=== PATIENT | male | born 1965 | race Caucasian/White ===

== ENCOUNTER 2021-11-14 22:03 | Emergency (ER) | payer OTHER, SELFPAY ==
--- NOTE | ~2021-11-14 | XR_ITS ---
EXAMINATION: XR TIBIA AND FIBULA, RIGHT CLINICAL INFORMATION: Assess for tibial fracture COMPARISON: None TECHNIQUE: AP and lateral views of the right tibia and fibula were obtained. FINDINGS: Diffuse soft tissue swelling about the calf. Underlying bony structures appear to be intact. I do not appreciate any acute fracture or dislocation. Mild degenerative changes in the knee and ankle. No bony destructive lesion or periosteal reaction. No soft tissue gas or radiopaque foreign body. XR/XR tibia fibula RT 2V IMPRESSION: Diffuse soft tissue swelling but no acute bony abnormality.
[2021-11-14 22:13] VITALS: RESP 18; BMI 40.6
[2021-11-14 22:24] LABS: MANUAL DIFF FLAG NO
[2021-11-14 22:26] LABS: Basophils Absolute Auto 0.1 X10*3/uL (0.0-0.2); Basophils Percent Auto 0.4 % (0-2); Eosinophils Percent Auto 0.2 % (0-4); Hematocrit 43.5 % (42.0-52.0); Hemoglobin 13.9 g/dl (14.0-18.0); Imm Gran Abs Auto 0.09 X10*3/uL (0.00-0.03); Imm Gran Pct Auto 0.6 % (0.0-0.4); Lymphocytes Absolute Auto 1.7 X10*3/uL (1.2-4.9); Lymphocytes Percent Auto 12.1 % (20-40); Mean Corpuscular Hemoglobin 27.1 pg (27.0-33.0); Mean Corpuscular Volume 84.8 fL (80.0-98.0); Mean Platelet Volume 9.5 fL (9.4-12.4); Monocytes Absolute Auto 0.9 X10*3/uL (0.1-1.2); Monocytes Percent Auto 6.4 % (2-11); Neutrophils Absolute Auto 11.2 x10*3/uL (2.0-8.3); Neutrophils Percent Auto 80.3 % (45-73); Platelet Count 290 X10*3/uL (160-400); Red Blood Count 5.13 X10*6/uL (4.60-5.80); Red Cell Distribution Width 15.5 % (11.0-16.0)
[2021-11-14 22:40] LABS: Alanine Aminotransferase 17 U/L (0-40); Alkaline Phosphatase 52 U/L (39-117); Anion Gap 19 (12-20); Aspartate Amino Transferase 14 U/L (5-37); Bilirubin Total 0.7 mg/dL (0.0-1.0); Blood Urea Nitrogen 13 mg/dL (9-16); Calcium 8.7 mg/dL (8.4-10.2); Carbon Dioxide 23 mmol/L (22-29); Chloride 102 mmol/L (96-108); Creatinine Clr Calc Pharmacy 81.4; Estimated Glomerular Filt Rate 51; Glucose Random 181 mg/dL (60-115); Potassium 3.9 mmol/L (3.3-5.1); Sodium 140 mmol/L (135-145); Total Protein 6.9 g/dL (6.5-8.0)
[2021-11-14] MEDS: Lidocaine HCl 2%/Epi 1:100,000 20 ML VIAL INFILTRATI (23:22)
--- NOTE | 2021-11-15 00:29 | ED.GENADULT ---
HPI - General Adult General Chief complaint: General Medical Stated complaint: bleeding leg Time Seen by Provider: 11/14/21 22:17 Source: patient Mode of arrival: ambulatory Limitations: no limitations History of Present Illness HPI narrative: Patient comes to the emergency room by private patient was trying to change a light bulb, patient fell of a 3 step ladder, slipped down, then the ladder fell on him. Patient complaining of a large laceration to the right lower extremity. Patient denies hitting his head, did not lose consciousness, not on blood thinners. Patient complaining of localized pain at the laceration site Related Data Allergies Allergy/AdvReac Type Severity Reaction Status Date / Time No Known Allergies Allergy Unverified 11/09/19 15:20 Review of Systems Review of Systems: Constitutional : No Weight loss, No Fever, No Chills, No Night Sweats, No Fatigue, No Malaise ENT/Mouth : No Hearing loss, No Ear Pain, No Nasal Congestion, No Sinus Pain, No Hoarseness, No sore throat, No Rhinorrhea, No Swallowing Difficulty Eyes: No Eye Pain, No Swelling, No Redness, No Foreign Body, No Discharge, No Vision Changes Cardiovascular : No Chest Pain, No SOB, No Dyspnea on Exertion, No Orthopnea, No Edema, No Palpitations Respiratory : No Cough, No Sputum, No Wheezing, No Smoke Exposure, No Dyspnea Gastrointestinal : No Nausea, No Vomiting, No Diarrhea, No Constipation, No abdominal Pain, No Hematochezia, No Melena Genitourinary : no irregular bleeding, No Dysuria, No Urinary Frequency, No Hematuria, No Urinary Incontinence, No Urgency, No Flank Pain, No Urinary Flow Changes, No Hesitancy Musculoskeletal : No joint pain, No Myalgias, No Joint Swelling Skin : Complaining of a large laceration to the right lower extremity Neuro : No Weakness, No Numbness, No Paresthesias, No Loss of Consciousness, No Dizziness, No Headache Psych : No Anxiety/Panic, No Depression, No SI/HI/AH/VH, No Social Issues, Heme/Lymph: No Bruising, No Bleeding,No Lymphadenopathy Endocrine : No Polyuria, No Polydipsia, No Temperature Intolerance PMFSH Social History Social History Advance Directives: No Physical Exam ED Vital Signs: Vital Signs - 24 hr 11/14/21 22:13 Respiratory Rate 18 BMI result Body Mass Index 40.6 Const Other: Appearance: Alert. Oriented X3. No acute distress. Eyes: Pupils equal, round and reactive to light. ENT: Pharynx normal. Neck: Normal inspection. Neck supple. No lymph nodes noted. No crepitus CVS: Normal heart rate and rhythm. Pulses normal. Normal S1 and S2 Respiratory: No respiratory distress. Breath sounds normal. No Wheezing. No rales Abdomen: Soft and nontender. No rigidity. No distention. Skin: Skin warm and dry. See extremity below bilateral chronic venous stasis Extremities: Bilateral lower chronic venous stasis, please see picture, laceration is approximately 23 cm, irregular, deep, the fascia is intact Neuro: Oriented X 3. No motor deficit. No sensory deficit. Moving all extremities. No slurred speech. CN 2 through 12 grossly intact Psych: calm, cooperative, normal affect Post repair: Course Course Course Narrative: When patient came in, patient states that he was dizzy from seeing some much blood. Patient's blood pressure was initially in the high 70s. Likely vasovagal. Patient giving fluids, now blood pressure 110 systolic, asymptomatic. 90 minutes were spent in direct patient care, suturing the laceration. Patient was given a tetanus booster. X-ray of tibia/fibula showed no fracture Procedures Laceration Laceration 1: Site: lower extremity Side (If applicable): right Size (cm): 23 Description: stellate, flap and irregular Local Anesthetic: lidocaine 2% and with epi Amount of anesthesia used (mL): 37 Pre-repair: wound explored, irrigated extensively and deep structures intact Skin layer closed with: nylon Size (cm): 3-0 Number of sutures: 28 Technique: other (Combination of simple interrupted sutures and figure 8) Subcutaneous layer closed with: vicryl Size: 4-0 Technique: other (Combination of simple interrupted and running sutures) Medical Decision Making Lab Data Result diagrams: 11/14/21 22:17 11/14/21 22:17 Labs: Lab Results 11/14/21 11/14/21 11/14/21 Range/Units 22:17 22:17 22:17 WBC 14.0 H (4.8-10.8) X10*3/uL RBC 5.13 (4.60-5.80) X10*6/uL Hgb 13.9 L (14.0-18.0) g/dl Hct 43.5 (42.0-52.0) % MCV 84.8 (80.0-98.0) fL MCH 27.1 (27.0-33.0) pg MCHC 32.0 (31.0-36.0) g/dl RDW 15.5 (11.0-16.0) % Plt Count 290 (160-400) X10*3/uL MPV 9.5 (9.4-12.4) fL Immature Gran % (Auto) 0.6 H (0.0-0.4) % Neut % (Auto) 80.3 H (45-73) % Lymph % (Auto) 12.1 L (20-40) % Nuckolls % (Auto) 6.4 (2-11) % Eos % (Auto) 0.2 (0-4) % Baso % (Auto) 0.4 (0-2) % Lymph # (Auto) 1.7 (1.2-4.9) X10*3/uL Nuckolls # (Auto) 0.9 (0.1-1.2) X10*3/uL Eos # (Auto) 0.0 (0.0-0.4) X10*3/uL Baso # (Auto) 0.1 (0.0-0.2) X10*3/uL Abs Immat Gran (auto) 0.09 H (0.00-0.03) X10*3/uL Absolute Neuts (auto) 11.2 H (2.0-8.3) x10*3/uL Absolute Nucleated RBC 0.000 (0.0-0.012) X10*3/uL Nucleated RBC % (auto) 0.0 (0.0-0.2) /100WBC Sodium 140 (135-145) mmol/L Potassium 3.9 (3.3-5.1) mmol/L Chloride 102 (96-108) mmol/L Carbon Dioxide 23 (22-29) mmol/L Anion Gap 19 (12-20) BUN 13 (9-16) mg/dL Creatinine 1.43 H (0.5-1.4) mg/dL Estim Creat Clear Calc 81.4 Estimated GFR 51 Random Glucose 181 H (60-115) mg/dL Calcium 8.7 (8.4-10.2) mg/dL Total Bilirubin 0.7 (0.0-1.0) mg/dL AST 14 (5-37) U/L ALT 17 (0-40) U/L Alkaline Phosphatase 52 (39-117) U/L Total Protein 6.9 (6.5-8.0) g/dL Albumin 4.0 (3.5-5.0) g/dL Blood Type O Positive Antibody Screen NEGATIVE Critical Care Time Critical Care Time Critical Care Time: Yes Total Critical Care Time: 90 Attestation: Please follow-up with your primary care physician tomorrow. If you have any worsening or new symptoms, please return to the emergency room or call 911 Discharge Plan Discharge Clinical Impression: Laceration of lower leg Patient Disposition: Home, Self-Care Instructions: Laceration (ED) Additional Instructions: Your sutures need to be removed in 7-10 days. If you see any signs of infection such as redness, pus drainage, fever or chills, please return to the emergency room. Please follow-up with your primary care physician tomorrow. If you have any worsening or new symptoms, please return to the emergency room or call 911
[2021-11-15] MEDS: Diphth,Pertus(ACell),Tet Adult 0.5 ML SYRINGE IM (00:54)
== END 2021-11-15 01:18 | disposition home or self-care (01) ==
PROVIDERS: Emergency Provider Emergency Medicine
DX: S81.811A Laceration without foreign body, right lower leg, initial encounter (principal); W20.8XXA Other cause of strike by thrown, projected or falling object, initial encounter; Y93.E9 Activity, other interior property and clothing maintenance; Y92.019 Unspecified place in single-family (private) house as the place of occurrence of the external cause; Y99.9 Unspecified external cause status
CPT/HCPCS: 12036; 36415; 73590; 80053; 85025; 86850; 86900; 86901; 90471; 90715; 99283; 99284

== ENCOUNTER 2021-11-27 13:33 | Observation (INO) | payer OTHER, SELFPAY ==
[2021-11-27 15:28] VITALS: BP 153/108; PULSE 90; RESP 20; TEMP 36; O2SAT 98; BMI 50.2
[2021-11-27 23:42] VITALS: BP 177/93; PULSE 91; TEMP 36.7; O2SAT 97
[2021-11-28] VITALS (8 sets, daily range): BP systolic 143–188; BP diastolic 74–96; PULSE 58–97; RESP 16–19; TEMP 35.9–36.8; O2SAT 96–98
--- NOTE | 2021-11-28 00:04 | ED.WOUNDLAC ---
HPI - Wound/Laceration General Chief Complaint: Wound/Laceration Stated Complaint: Suture Removal Time Seen by Provider: 11/27/21 23:41 Source: patient Mode of arrival: ambulatory Limitations: no limitations History of Present Illness HPI narrative: This is a 56-year-old male presenting to the emergency department for suture removal status post complex laceration that occurred on 11/15/2021. Patient tells me he has been having some chills here in there he notes the area is not healing well and it is warm. Patient tells me that the right lower extremities really hurting him. Reports increased redness. He tells me his nurse friend try to help with suture removal however half of the sutures are imbedded underneath the skin. Patient reports that he did not take oral antibiotics nor was he prescribed any when he 1st came in Related Data Previous Rx's Medication Instructions Recorded tramadol 50 mg tablet 50 mg PO BID PRN pain #5 tabs 11/15/21 Allergies Allergy/AdvReac Type Severity Reaction Status Date / Time No Known Allergies Allergy Verified 11/15/21 01:11 Review of Systems Review of Systems: Constitutional : No Fever, No Chills, Cardiovascular : No Chest Pain, No SOB Respiratory : No Dyspnea Gastrointestinal : No abdominal pain Musculoskeletal : No Joint Swelling Skin : No rash, positive skin laceration/wound Neuro : No Weakness, No Numbness Psych : No SI/HI Yes all other systems are reviewed and are negative [facility] Past Medical History Attestation statement: The following information was validated with the patient. Source: old records reviewed and nursing notes reviewed Social History Social History Advance Directives: No Physical Exam Vital Signs: Vital Signs: Last Vital Signs Temp 98.1 F 11/27/21 23:42 Pulse 91 11/27/21 23:42 Resp 20 11/27/21 15:28 BP 177/93 H 11/27/21 23:42 Pulse Ox 97 11/27/21 23:42 O2 Del Method 11/27/21 23:42 BMI result Body Mass Index 50.2 Vital signs stable however patient noted to have slightly elevated blood pressure, asymptomatic at this time. No headache, vision changes, dizziness or weakness. Appearance: Alert.? Oriented X3.? No acute distress.? Head: Normocephalic, atraumatic, no step-offs or deformities Eyes: Pupils equal, round and reactive to light.? ENT: Pharynx normal.? Neck: Normal inspection.? Neck supple.? CVS: Normal heart rate and rhythm.? Pulses normal.? Respiratory: No respiratory distress.? Breath sounds normal.? Abdomen: Soft and nontender.? Skin: Skin warm and dry.? Normal skin color.? Normal skin turgor.? Large wound to the right lower extremity nonhealing. With mild errythema and some warmth. + DP,AT,PT eqal and bl Extremities: No lower extremity edema.? No calf ttp. 5/5 strength to bilateral upper and lower extremities Neuro: Oriented X 3.? No motor deficit.? No sensory deficit. CN 2-12 intact Course Reevaluation(s) Reevaluation #1: I tried to remove sutures successfully removed about 20 sutures, a large amount of suture material imbedded within patient's skin. Patient had difficulty tolerating procedure secondary to pain. This patient will likely benefit from wound exploration likely by surgery. Basic labs, lactic and blood cultures pending at this time patient will receive IV antibiotics. Plan is for hospital admission. Time: 00:09 Reevaluation #2: Patient's CBC within normal limits, chemistry with no acute electrolyte abnormalities requiring intervention. Patient's lactic acid 2.9, fluids are currently being administered and antibiotics ordered. Unlikely sepsis. Inflammatory markers at added at this time. At this time patient will be admitted to the hospitalist team for further intervention and treatment. Time: 01:27 MDM - Wound/Laceration MDM Narrative Medical decision making narrative: 0000 56-year-old male presents for suture removal and a nonhealing right lower extremity wound, patient has suffered a complex laceration on 11/15/2021, reports the wound is not healing reports subjective chills, malaise. Noted to be hypertensive however he tells me this is around his baseline, patient tells me he refused to take blood pressure medications. Nonhealing wound to the right lower extremity, distal pulses 2+ equal bilateral. Neurovascularly intact. There is overlying warmth and erythema surrounding the wound. Some sutures are buried within soft tissue. Likely poor healing wound secondary to peripheral vascular disease or diabetes although patient does not have a diagnosis of diabetes. Unlikely venous or arterial occlusion. Plan at this time is to remove sutures as best as I can, educated that there will likely be retained foreign bodies/sutures due to the healing process. Patient verbalizes understanding. Will obtain basic lab work, blood cultures, lactic acid and give antibiotics for cellulitis Medical Records Attestation: I reviewed the patient's medical records. Lab Data Attestation: I reviewed the patient's lab results. Result diagrams: 11/28/21 00:30 11/28/21 00:30 Labs: Lab Results 11/28/21 11/28/21 11/28/21 Range/Units 00:30 00:30 00:30 WBC 7.6 (4.8-10.8) X10*3/uL RBC 4.86 (4.60-5.80) X10*6/uL Hgb 12.8 L (14.0-18.0) g/dl Hct 40.8 L (42.0-52.0) % MCV 84.0 (80.0-98.0) fL MCH 26.3 L (27.0-33.0) pg MCHC 31.4 (31.0-36.0) g/dl RDW 15.5 (11.0-16.0) % Plt Count 294 (160-400) X10*3/uL MPV 8.5 L (9.4-12.4) fL Immature Gran % (Auto) 0.4 (0.0-0.4) % Neut % (Auto) 69.9 (45-73) % Lymph % (Auto) 22.2 (20-40) % Hughes % (Auto) 6.7 (2-11) % Eos % (Auto) 0.4 (0-4) % Baso % (Auto) 0.4 (0-2) % Lymph # (Auto) 1.7 (1.2-4.9) X10*3/uL Hughes # (Auto) 0.5 (0.1-1.2) X10*3/uL Eos # (Auto) 0.0 (0.0-0.4) X10*3/uL Baso # (Auto) 0.0 (0.0-0.2) X10*3/uL Abs Immat Gran (auto) 0.03 (0.00-0.03) X10*3/uL Absolute Neuts (auto) 5.3 (2.0-8.3) x10*3/uL Absolute Nucleated RBC 0.000 (0.0-0.012) X10*3/uL Nucleated RBC % (auto) 0.0 (0.0-0.2) /100WBC Sodium 140 (135-145) mmol/L Potassium 4.3 (3.3-5.1) mmol/L Chloride 101 (96-108) mmol/L Carbon Dioxide 27 (22-29) mmol/L Anion Gap 16 (12-20) BUN 10 (9-16) mg/dL Creatinine 1.03 (0.5-1.4) mg/dL Estim Creat Clear Calc 120.0 Estimated GFR > 60 Random Glucose 97 D (60-115) mg/dL Lactic Acid 2.9 H* (0.5-2.0) mmol/L Calcium 9.1 (8.4-10.2) mg/dL Total Bilirubin 0.5 (0.0-1.0) mg/dL AST 15 (5-37) U/L ALT 15 (0-40) U/L Alkaline Phosphatase 57 (39-117) U/L Total Protein 7.4 (6.5-8.0) g/dL Albumin 4.3 (3.5-5.0) g/dL Critical Care Time Critical Care Time Critical Care Time: No Discharge Plan Discharge Clinical Impression: Encounter for removal of sutures, Cellulitis, Retained foreign body, Retained suture, HANY (acute kidney injury) Patient Disposition: Admitted As Inpatient
[2021-11-28 00:39] LABS: Basophils Percent Auto 0.4 % (0-2); Eosinophils Percent Auto 0.4 % (0-4); Hematocrit 40.8 % (42.0-52.0); Hemoglobin 12.8 g/dl (14.0-18.0); Imm Gran Abs Auto 0.03 X10*3/uL (0.00-0.03); Imm Gran Pct Auto 0.4 % (0.0-0.4); Lymphocytes Absolute Auto 1.7 X10*3/uL (1.2-4.9); Lymphocytes Percent Auto 22.2 % (20-40); MANUAL DIFF FLAG NO; Mean Corpuscular HGB Conc 31.4 g/dl (31.0-36.0); Mean Corpuscular Hemoglobin 26.3 pg (27.0-33.0); Mean Platelet Volume 8.5 fL (9.4-12.4); Monocytes Absolute Auto 0.5 X10*3/uL (0.1-1.2); Monocytes Percent Auto 6.7 % (2-11); Neutrophils Absolute Auto 5.3 x10*3/uL (2.0-8.3); Neutrophils Percent Auto 69.9 % (45-73); Platelet Count 294 X10*3/uL (160-400); Red Blood Count 4.86 X10*6/uL (4.60-5.80); Red Cell Distribution Width 15.5 % (11.0-16.0); White Blood Count 7.6 X10*3/uL (4.8-10.8)
[2021-11-28 00:52] LABS: Lactic Acid 2.9 mmol/L (0.5-2.0)
[2021-11-28 00:54] LABS: Alanine Aminotransferase 15 U/L (0-40); Albumin Level 4.3 g/dL (3.5-5.0); Alkaline Phosphatase 57 U/L (39-117); Anion Gap 16 (12-20); Aspartate Amino Transferase 15 U/L (5-37); Bilirubin Total 0.5 mg/dL (0.0-1.0); Blood Urea Nitrogen 10 mg/dL (9-16); Calcium 9.1 mg/dL (8.4-10.2); Carbon Dioxide 27 mmol/L (22-29); Chloride 101 mmol/L (96-108); Estimated Glomerular Filt Rate > 60; Glucose Random 97 mg/dL (60-115); Potassium 4.3 mmol/L (3.3-5.1); Sodium 140 mmol/L (135-145); Total Protein 7.4 g/dL (6.5-8.0)
[2021-11-28] MEDS: cefTRIAXone sodium 1 GM in 0.9 % Sodium Chloride 50 ML IV (01:26)
[2021-11-28] MEDS: 0.9 % Sodium Chloride 1,000 ML 999 ML IV (01:26)
[2021-11-28 02:20] LABS: Erythrocyte Sedimentation Rate 22 MM/HR (0-15)
[2021-11-28 02:39] LABS: Reflex Lactate? Lactic Acid Added
[2021-11-28 05:21] LABS: Estimated Average Glucose 114 mg/dL; Hemoglobin A1c % 5.6 %
--- OUTSIDE RECORDS SUMMARY | 2021-11-28 05:39 | XMS_ITS | Continuity of Care Document ---
:1965 Author Organization [facility] Address [address] [place] [address]- Care Team Providers Name Role Phone Not on Staff, PCP Primary Care Physician Unavailable Encounter [facility] Date(s): 06/12/19 - 07/12/19 [facility] [address] [place] [address]- [facility] Attending Physician: Arsh Suarez Admitting Physician: Arsh Suarez Referring Physician: Admtr, Ar8 Allergies, Adverse Reactions, Alerts No Known Medication Allergies
--- OUTSIDE RECORDS SUMMARY | 2021-11-28 05:39 | XMS_ITS | Continuity of Care Document ---
:1965 Author Organization [facility] Address [address] [place] [address]- Care Team Providers Name Role Phone Not on Staff, PCP Primary Care Physician Unavailable [place] [facility] [place] - 06/19/19 [facility] [address] [place] [address]- [facility] Attending Physician: Afia Vigil MD Referring Physician: Shaylee AHN, Remigio Wheeler Allergies, Adverse Reactions, Alerts No Known Medication Allergies Vital Signs Most recent to oldest [Reference Range]: 1 Height 177 cm (06/12/19 3:03 PM) Weight 158.3 kg (06/12/19 3:03 PM) Oxygen Saturation [94-100 %] 97 % (06/12/19 3:03 PM) Pulse Rate [55-90 bpm] 131 bpm *H* (06/12/19 3:03 PM) Body Mass Index [18.5-24.99] 50.53 *>HHI* (06/12/19 3:03 PM) Blood Pressure [90-138/55-84 mm Hg] 174/102 mm Hg *H* (06/12/19 3:03 PM) Respiratory Rate [16-30 br/min] 18 br/min (06/12/19 3:03 PM) Temperature [96.8-100.4 DegF] 97.2 DegF (06/12/19 3:03 PM) Mode of Delivery (Oxygen) Room air (06/12/19 3:03 PM) Blood pressure sites Arm, right (06/12/19 3:03 PM) Temperature Route Oral (06/12/19 3:03 PM) Dry Weight 158.3 kg (06/12/19 3:03 PM) Weight Obtained Via Standing scale (06/12/19 3:03 PM) Dry Weight Obtained Via Standing scale (06/12/19 3:03 PM)
--- NOTE | 2021-11-28 05:52 | PM.IMHP ---
History of Present Illness Date of Service: 11/28/21 Chief Complaint: suture removal 56-year-old male with no significant past medical history who presents to the hospital with complaints of right leg laceration wanting sutures removed. Patient was seen in the ED 14 days ago after falling from a ladder and sustaining a laceration to the lateral aspect of his right leg. He received over 50 sutures in the ED. He reports that he was taking care of it at home, with Tegaderm, and keeping it dry, but the sutures kept getting stuck in his pads, and really being bothersome and therefore he came to the ED to have them removed. He reports no pain, he does report drainage of bloody liquid, denies any fever or chills, with no swelling on the wound, he has chronic changes of skin in his lower extremitities that has not changed. Patient denies any chest pain, no shortness of breath, no abdominal pain nausea or vomiting, no diarrhea constipation, no urinary symptoms and no lower extremity edema. On arrival to the ED patient hemodynamically stable with slightly elevated blood pressure I labs are significant for WBC count of 7.6, hemoglobin of 12.8, hematocrit of 40.8, lactic acid of 2.9, improved to 1 after fluids, CRP of 1.2, ESR of 22, Patient's start IV antibiotics OB admitted further management Review of Systems Review of Systems: Yes all other systems are reviewed and are negative [facility] Medical History (Updated 11/28/21 @ 05:57 by Celina Haywood MD) No pertinent past medical history Family History (Updated 11/28/21 @ 05:57 by Celina Haywood MD) Other No family history of coronary artery disease Surgical History (Updated 11/28/21 @ 05:57 by Celina Haywood MD) No pertinent past surgical history Social History (Updated 11/28/21 @ 05:57 by Celina Haywood MD) Alcohol intake: current Patient Tobacco Use Status: Former Tobacco user Cigarette Packs Per Day: 3 Use of substances other than those prescribed or required for medical reasons: Yes Substance Use Type: Marijuana Advance Directives: No Meds Allergies Allergy/AdvReac Type Severity Reaction Status Date / Time No Known Allergies Allergy Verified 11/15/21 01:11 Active Medications: Current Medications Acetaminophen (Acetaminophen 325 Mg Tablet) 650 mg PO Q6H PRN PRN Reason: Pain, Mild (Pain Scale 1-3) Docusate Sodium (Docusate Sodium 100 Mg Capsule) 100 mg PO DAILY PRN PRN Reason: Constipation Enoxaparin Sodium (Enoxaparin Sodium 40 Mg/0.4 Ml Syringe) 40 mg SUBCUT Q24H NASH Vancomycin HCl 1,500 mg/ (Sodium Chloride) 500 mls @ 333.333 mls/hr IV Q12H NASH Ondansetron HCl (Ondansetron Hcl 4 Mg/2 Ml Vial) 4 mg IVPUSH Q8H PRN PRN Reason: Nausea and Vomiting Pharmacy Consult (Consult Rx Perform Med Rec) 1 each MISCELLANE ONCE PRN PRN Reason: Consult order Pharmacy Consult (Consult Rx Vancomycin Dosing) 1 each MISCELLANE DAILY PRN PRN Reason: Consult order Sodium Chloride (0.9 % Sodium Chloride Flush 3 Ml Syringe) 3 ml IVFLUSH QSHIFT NASH Physical Exam Vital Signs and Narrative: Vital Signs: Last Vital Signs Temp 98.1 F 11/27/21 23:42 Pulse 96 11/28/21 04:00 Resp 20 11/27/21 15:28 BP 188/89 H 11/28/21 04:00 Pulse Ox 97 11/28/21 04:00 O2 Del Method 11/28/21 04:00 BMI result Body Mass Index 50.2 Const: General: cooperative and no acute distress Orientation/consciousness: patient oriented x3 Eyes: General: appearance normal, both eyes and all related structures Resp: Effort & Inspection: normal respiratory effort Auscultation: clear to auscultation bilaterally Cardio: Rate: regular rate Rhythm: regular rhythm GI: Palpation (GI): Soft to palpation Auscultation: normal bowel sounds Skin: Other: Has a right lateral lower extremity ulcer, with embedded sutures, no erythema, no tenderness, no warmth, but has purulent discharge Neuro: General: patient oriented x3 Cognition (Neuro): normal cognition Extrem: General: Yes normal to inspection and Yes no pedal edema Results Labs CBC and Chem 7: 11/28/21 00:30 11/28/21 00:30 Labs: Laboratory Results - last 24 hr 11/28/21 11/28/21 11/28/21 00:30 00:30 00:30 MCV 84.0 MCH 26.3 L MCHC 31.4 RDW 15.5 Plt Count 294 MPV 8.5 L Immature Gran % (Auto) 0.4 Neut % (Auto) 69.9 Lymph % (Auto) 22.2 Worth % (Auto) 6.7 Eos % (Auto) 0.4 Baso % (Auto) 0.4 Lymph # (Auto) 1.7 Worth # (Auto) 0.5 Eos # (Auto) 0.0 Baso # (Auto) 0.0 Abs Immat Gran (auto) 0.03 Absolute Neuts (auto) 5.3 Absolute Nucleated RBC 0.000 Nucleated RBC % (auto) 0.0 ESR Anion Gap 16 Estim Creat Clear Calc 120.0 Estimated GFR > 60 Random Glucose 97 D Estimat Average Glucose 114 Hemoglobin A1c % 5.6 Lactic Acid Lactic Acid F/U @ 2Hr Calcium 9.1 Total Bilirubin 0.5 AST 15 ALT 15 Alkaline Phosphatase 57 C-Reactive Protein 1.20 H Total Protein 7.4 Albumin 4.3 11/28/21 11/28/21 11/28/21 00:30 00:30 05:02 MCV MCH MCHC RDW Plt Count MPV Immature Gran % (Auto) Neut % (Auto) Lymph % (Auto) Worth % (Auto) Eos % (Auto) Baso % (Auto) Lymph # (Auto) Worth # (Auto) Eos # (Auto) Baso # (Auto) Abs Immat Gran (auto) Absolute Neuts (auto) Absolute Nucleated RBC Nucleated RBC % (auto) ESR 22 H Anion Gap Estim Creat Clear Calc Estimated GFR Random Glucose Estimat Average Glucose Hemoglobin A1c % Lactic Acid 2.9 H* Lactic Acid F/U @ 2Hr 1.0 Calcium Total Bilirubin AST ALT Alkaline Phosphatase C-Reactive Protein Total Protein Albumin Assessment and Plan (1) Encounter for removal of sutures: Status: Acute (2) Retained foreign body: Status: Acute (3) Retained suture: Status: Acute Plan 56-year-old male with no significant past medical history presents to hospital with nonhealing ulcer in his right leg and wanting suture removed # retained foreign body/retained sutures - will consult General surgery as ED PA was unable to remove the sutures - given the purulent discharge, nonhealing wound will start patient on IV antibiotics - he is likely okay to be discharge in a.m. on p.o. antibiotics once seen by surgery - wound also consulted - will likely need wound care follow-up outpatient # lactic acidosis - unclear etiology - has no hypotension, no hypoxia - improved after IV fluids - continue IV fluids DVT prophylaxis: Lovenox Quality Stroke Does the patient have a stroke diagnosis?: No VTE Prior VTE?: No VTE Risk Level:: Medical - moderate - high VTE Device Contraindication: Treatment Not Indicated VTE Drug Contraindication: N/A - Med Ordered
[2021-11-28] MEDS: Enoxaparin Sodium 40 MG/0.4 ML SYRINGE SUBCUT (07:19)
[2021-11-28] MEDS: vancomycin HCL 1,500 MG in 0.9 % Sodium Chloride 500 ML 333.33 MG IV (07:19)
--- NOTE | 2021-11-28 07:50 | PHA.PROG ---
Admission Date/Time: November 28, 2021 05:06 Indication: skin Weight in k.757 kg Adjusted body weight in Kg: [place] body weight in Kg: Obesity Dosing Indication % IBW: obese model Serum Creatinine - Last 168 Hours 11/28/21 00:30 Creatinine 1.03 Estimated CrCl and GFR - Last 168 Hours 11/28/21 00:30 Estim Creat Clear Calc 120.0 Estimated GFR > 60 Vancomycin Loading Dose: 1500mg x1 and added extra 500mg for 2g load dose Current Vancomycin Dosing Regimen: 1000mg Q12H Vancomycin Monitoring using AUC goal of 400 - 600 range with trough as surrogate marker 445mg/L Date and Time for next Vancomycin Level to be drawn: 11/29/21 @1700 Pharmacist Comments on Vancomycin Plan: Pt extremely obese; will continue to monitor renal function Vancomycin dosing will take advantage of [employer] as a clinical decision support tool that uses Bayesian modeling to calculate individual patient's pharmacokinetic parameters and forecast the patient's drug concentration time course with the target goal AUC 24 range of 400 - 600 mg/L/hr.
[2021-11-28 07:58] LABS: MANUAL DIFF FLAG NO
[2021-11-28 08:00] LABS: Basophils Absolute Auto 0.1 X10*3/uL (0.0-0.2); Basophils Percent Auto 0.5 % (0-2); Eosinophils Absolute Auto 0.1 X10*3/uL (0.0-0.4); Eosinophils Percent Auto 0.7 % (0-4); Hematocrit 43.2 % (42.0-52.0); Hemoglobin 13.3 g/dl (14.0-18.0); Imm Gran Abs Auto 0.04 X10*3/uL (0.00-0.03); Imm Gran Pct Auto 0.4 % (0.0-0.4); Lymphocytes Absolute Auto 2.3 X10*3/uL (1.2-4.9); Lymphocytes Percent Auto 23.7 % (20-40); Mean Corpuscular HGB Conc 30.8 g/dl (31.0-36.0); Mean Corpuscular Hemoglobin 26.1 pg (27.0-33.0); Mean Corpuscular Volume 84.9 fL (80.0-98.0); Mean Platelet Volume 8.9 fL (9.4-12.4); Monocytes Absolute Auto 0.7 X10*3/uL (0.1-1.2); Monocytes Percent Auto 6.9 % (2-11); Neutrophils Absolute Auto 6.6 x10*3/uL (2.0-8.3); Neutrophils Percent Auto 67.8 % (45-73); Platelet Count 319 X10*3/uL (160-400); Red Blood Count 5.09 X10*6/uL (4.60-5.80); Red Cell Distribution Width 15.6 % (11.0-16.0); White Blood Count 9.8 X10*3/uL (4.8-10.8)
[2021-11-28 08:07] LABS: PTT Heparin Drip 31.6 SEC (53-77.9)
[2021-11-28] MEDS: Lactated Ringers 1,000 ML 100 ML IVCONT (08:20)
[2021-11-28 08:21] LABS: Anion Gap 16 (12-20); Blood Urea Nitrogen 10 mg/dL (9-16); Calcium 8.8 mg/dL (8.4-10.2); Carbon Dioxide 24 mmol/L (22-29); Chloride 104 mmol/L (96-108); Creatinine Clr Calc Pharmacy 128.8; Estimated Glomerular Filt Rate > 60; Glucose Random 85 mg/dL (60-115); Potassium 4.3 mmol/L (3.3-5.1); Sodium 140 mmol/L (135-145)
--- NOTE | 2021-11-28 08:49 | PM.CNGS ---
History of Present Illness Consult details Consult date: 11/28/21 <JASMEET Villa Last Filed: 11/28/21 12:54> Requesting physician: Celina Haywood <JASMEET Villa Last Filed: 11/28/21 12:54> Narrative: 56 year old male who presents to the hospital for suture removal of right lower leg laceration.? Patient was seen in the ED 14 days ago after falling from a ladder and sustaining a laceration to the anterior/lateral aspect of his lower right leg and received over 50 sutures.? He denies pain, fever or chills. He does report drainage of clearish fluid the other day but denies purulent drainage. He has kept the wound covered with tegaderm at home. Upon presentation the sutures were embedded into the wound with purulent exudate noted. He was worked up with labs given concern for cellulitis. He was admitted to the hospitalist service for antibiotics and treatment of lactic acidosis. Surgery was consulted for further suture removal. <JASMEET Villa Last Filed: 11/28/21 12:54> Review of Systems Constitutional: Constitutional: Denies chills, Denies fever(s) and Denies malaise <JASMEET Villa Last Filed: 11/28/21 12:54> ENT: Denies dizziness <JASMEET Villa Last Filed: 11/28/21 12:54> Cardiovascular: Cardiovascular: Denies chest pain and Denies dyspnea <JASMEET Villa Last Filed: 11/28/21 12:54> Respiratory: Respiratory: Denies cough and Denies dyspnea <JASMEET Villa Last Filed: 11/28/21 12:54> Gastrointestinal: Gastrointestinal: Denies abdominal pain and Denies vomiting <JASMEET Villa Last Filed: 11/28/21 12:54> Musculoskeletal: Musculoskeletal: Denies numbness <JASMEET Villa Last Filed: 11/28/21 12:54> Integumentary/Breasts: Skin/Breast: Reports as per HPI <JASMEET Villa Last Filed: 11/28/21 12:54> Neurologic: Denies dizziness and Denies numbness <JASMEET Villa Last Filed: 11/28/21 12:54> PMF Past Medical History Medical History: Medical History (Updated 11/28/21 @ 05:57 by Celina Haywood MD) No pertinent past medical history <JASMEET Villa Last Filed: 11/28/21 12:54> Family History Family History: Family History (Updated 11/28/21 @ 05:57 by Celina Haywood MD) Other No family history of coronary artery disease <JASMEET Villa Last Filed: 11/28/21 12:54> Surgical History Surgical History: Surgical History (Updated 11/28/21 @ 05:57 by Celina Haywood MD) No pertinent past surgical history <JASMEET Villa Last Filed: 11/28/21 12:54> Social History Social History: Social History (Updated 11/28/21 @ 05:57 by Celina Haywood MD) Alcohol intake: current Patient Tobacco Use Status: Former Tobacco user Cigarette Packs Per Day: 3 Use of substances other than those prescribed or required for medical reasons: Yes Substance Use Type: Marijuana Advance Directives: No <JASMEET Villa Last Filed: 11/28/21 12:54> Meds Allergies/Adverse reactions: Allergies Allergy/AdvReac Type Severity Reaction Status Date / Time No Known Allergies Allergy Verified 11/15/21 01:11 <JASMEET Villa Last Filed: 11/28/21 12:54> Active Medications: Current Medications Acetaminophen (Acetaminophen 325 Mg Tablet) 650 mg PO Q6H PRN PRN Reason: Pain, Mild (Pain Scale 1-3) Docusate Sodium (Docusate Sodium 100 Mg Capsule) 100 mg PO DAILY PRN PRN Reason: Constipation Enoxaparin Sodium (Enoxaparin Sodium 40 Mg/0.4 Ml Syringe) 40 mg SUBCUT Q24H [facility] Last Admin: 11/28/21 07:19 Dose: 40 mg Vancomycin HCl 1,500 mg/ (Sodium Chloride) 500 mls @ 333.333 mls/hr IV Q12H [facility] Last Admin: 11/28/21 07:19 Dose: 333.33 mls/hr Lactated Ringer's (Lr) 1,000 mls @ 100 mls/hr IVCONT .Q10H [facility] Last Admin: 11/28/21 08:20 Dose: 100 mls/hr Vancomycin HCl 500 mg/ Sodium (Chloride) 110 mls @ 110 mls/hr IV ONCE ONE Stop: 11/28/21 08:59 Vancomycin HCl 1,000 mg/ (Sodium Chloride) 270 mls @ 270 mls/hr IV Q12H [facility] Ondansetron HCl (Ondansetron Hcl 4 Mg/2 Ml Vial) 4 mg IVPUSH Q8H PRN PRN Reason: Nausea and Vomiting Pharmacy Consult (Consult Rx Perform Med Rec) 1 each MISCELLANE ONCE PRN PRN Reason: Consult order Pharmacy Consult (Consult Rx Vancomycin Dosing) 1 each MISCELLANE DAILY PRN PRN Reason: Consult order Sodium Chloride (0.9 % Sodium Chloride Flush 3 Ml Syringe) 3 ml IVFLUSH QSHIFT [facility] Last Admin: 11/28/21 08:20 Dose: Not Given <Vero Bains PA-C - Last Filed: 11/28/21 12:54> Home medications: Home Medications Medication Instructions Recorded Confirmed Last Taken Type acetaminophen 325 mg tablet 650 mg PO Q4H PRN Pain (Scale 11/28/21 11/28/21 Unknown History Score 1-3) ibuprofen 200 mg tablet 400 mg PO Q6H PRN Pain (Scale 11/28/21 11/28/21 Unknown History Score 1-3) melatonin 10 mg tablet 60 mg PO BEDTIME PRN Sleep 11/28/21 11/28/21 Unknown History <Vero Bains PA-C - Last Filed: 11/28/21 12:54> Physical Exam Vital Signs: Vital Signs: Last Vital Signs Temp 98.1 F 11/27/21 23:42 Pulse 96 11/28/21 04:00 Resp 20 11/27/21 15:28 BP 188/89 H 11/28/21 04:00 Pulse Ox 97 11/28/21 04:00 O2 Del Method 11/28/21 04:00 BMI result Body Mass Index 50.2 <JASMEET Villa Last Filed: 11/28/21 12:54> Const: General: comfortable, no acute distress and alert <Vero Bains PA-C Octavio Last Filed: 11/28/21 12:54> Nutritional Appearance: obese <Vero JASMEET Bains Octavio Last Filed: 11/28/21 12:54> Orientation/consciousness: patient oriented x3 <Vero Bains PA-C Octavio Last Filed: 11/28/21 12:54> Resp: Effort & Inspection: normal respiratory effort <Vero JASMEET Bains Octavio Last Filed: 11/28/21 12:54> Cardio: Rate: regular rate <Vero JASMEET Bains Octavio Last Filed: 11/28/21 12:54> Neuro: General: patient oriented x3 and moves all extremities <JASMEET Villa Last Filed: 11/28/21 12:54> Extrem: Other: right lower leg wound- laceration site with some retained nylon sutures, wound edges not well approximated, some purulent drainage noted from ulcerated area of wound when pressure applied, chronic venous changes of skin <Vero Bains PA-C Octavio Last Filed: 11/28/21 12:54> Results Labs Result diagrams: : 11/28/21 07:26 11/28/21 07:26 <Vero Bains PA-C Octavio Last Filed: 11/28/21 12:54> Labs: Abnormal lab results 11/28/21 11/28/21 11/28/21 Range/Units 00:30 00:30 00:30 Hgb 12.8 L (14.0-18.0) g/dl Hct 40.8 L (42.0-52.0) % MCH 26.3 L (27.0-33.0) pg MCHC (31.0-36.0) g/dl MPV 8.5 L (9.4-12.4) fL Abs Immat Gran (auto) (0.00-0.03) X10*3/uL ESR (0-15) MM/HR aPTT Heparin Protocol (53-77.9) SEC Lactic Acid 2.9 H* (0.5-2.0) mmol/L C-Reactive Protein 1.20 H (< or = 0.50) mg/dL 11/28/21 11/28/21 11/28/21 Range/Units 00:30 07:26 07:26 Hgb 13.3 L (14.0-18.0) g/dl Hct (42.0-52.0) % MCH 26.1 L (27.0-33.0) pg MCHC 30.8 L (31.0-36.0) g/dl MPV 8.9 L (9.4-12.4) fL Abs Immat Gran (auto) 0.04 H (0.00-0.03) X10*3/uL ESR 22 H (0-15) MM/HR aPTT Heparin Protocol 31.6 L (53-77.9) SEC Lactic Acid (0.5-2.0) mmol/L C-Reactive Protein (< or = 0.50) mg/dL Short CBC 11/28/21 11/28/21 Range/Units 00:30 07:26 WBC 7.6 9.8 (4.8-10.8) X10*3/uL Hgb 12.8 L 13.3 L (14.0-18.0) g/dl Hct 40.8 L 43.2 (42.0-52.0) % Plt Count 294 319 (160-400) X10*3/uL BMP 11/28/21 11/28/21 00:30 07:26 Sodium 140 140 Potassium 4.3 4.3 Chloride 101 104 Carbon Dioxide 27 24 BUN 10 10 Creatinine 1.03 0.96 Calcium 9.1 8.8 Liver Function 11/28/21 Range/Units 00:30 Total Bilirubin 0.5 (0.0-1.0) mg/dL AST 15 (5-37) U/L ALT 15 (0-40) U/L Alkaline Phosphatase 57 (39-117) U/L Albumin 4.3 (3.5-5.0) g/dL All other labs normal. <Vero Bains PA-C - Last Filed: 11/28/21 12:54> Assessment and Plan (1) Encounter for removal of sutures: Status: Acute <Vero Bains PA-C - Last Filed: 11/28/21 12:54> sutures removed by SUNSHINE Bains he does have chronic stasis changes on both lower extremities cellulitic changes, ulceration on previous laceration wound care leg elevation seen and examined independently <Kyler Sinclair MD - Last Filed: 11/28/21 09:21> (2) Retained suture: Status: Acute <Vero Bains PA-C - Last Filed: 11/28/21 12:54> 56 year old male who sustained a laceration to the right lower leg which was subsequently sutured in the ED 14 days ago who now presents for suture removal. Laceration site found to have purulent exudate with embedded sutures on presentation and was admitted for abx and treatment of lactic acidosis. Patient seen and retained sutures removed. The edges are not well approximated but there is no exposed subcutaneous tissues. He does have chronic venous changes of the lower legs with very dry, flaky skin. This was removed with forceps surrounding the laceration site to ensure removal of all exposed sutures. I was also able to express some purulent drainage from the ulcerated area of the laceration but there does not appear to be a collection suggesting an abscess. He could definitely benefit from wound care follow up and recommended elevation of the leg to reduce edema of the lower leg to help with healing. If the wound has difficulty healing further down the line, may also benefit from vascular evaluation for likely PVD. <Vero Bains PA-C - Last Filed: 11/28/21 12:54> Procedures Date of Service Date of Service: 11/28/21 <Vero Bains PA-C - Last Filed: 11/28/21 12:54>
[2021-11-28] MEDS: vancomycin HCL 500 MG in 0.9 % Sodium Chloride 100 ML 110 MG IV (09:22)
--- NOTE | 2021-11-28 11:43 | PHA.MEDREC ---
Pharmacy Consult ? Medication Reconciliation Pharmacy has completed the medication reconciliation.Spoke with patient in the ED. he states he takes 6 tablets of 10 mg at bedtime for sleep. he is currently not on any maintenance medications
--- NOTE | 2021-11-28 12:07 | P.DS_ITS ---
DS: Providers Provider Date of Service: 11/28/21 Date of admission: 11/28/21 05:06 Date of discharge: 11/28/21 Primary care physician: None Physician Consults: 11/28/21 05:06 Consult to General Surgery Routine Consulting Provider: Galen Ramsey Reason for consultation: wound, needing stiches out, Has provider been notified: No Consult to Infectious Diseases Routine Consulting Provider: Sarah Diamond Reason for consultation: non-healing wound Has provider been notified: No Attending physician on discharge: Dennis Avila Discharging clinician: Dinorah Bullard DS: Diagnosis Discharge Diagnosis (1) Encounter for removal of sutures: Status: Acute (2) Retained suture: Status: Acute DS: Summary Hospital Course Hospital Course: From H&P on day of admission 56-year-old male with no significant past medical history who presents to the hospital with complaints of right leg laceration wanting sutures removed.? Patient was seen in the ED 14 days ago after falling from a ladder and sustaining a laceration to the lateral aspect of his right leg.? He received over 50 sutures in the ED.? He reports that he was taking care of it at home, with Tegaderm, and keeping it dry, but the sutures kept getting stuck in his pads, and really being bothersome and therefore he came to the ED to have them removed.? He reports no pain, he does report drainage of bloody liquid, denies any fever or chills, with no swelling on the wound, he has chronic changes of skin in his lower extremitities that has not changed.Patient denies any chest pain, no shortness of breath, no abdominal pain nausea or vomiting, no diarrhea constipation, no urinary symptoms and no lower extremity edema .? retained foreign body/retained sutures with surrounding cellulitis sutures removed by surgeryin the ED Purulent discharge noted, some expressed by surgery, no area of abscess Treated with IV vancomycin, transition to doxycycline for total 14 days as an outpatient Plan to schedule appointment with wound care center as well as vascular surgery Keep wound clean, may cleanse with clean water and mild soap, keep open or cover with gauze and nonstick dressing with activity lactic acidosis no sepsis resolved with IVF HTN no PCP, hasn't seen medical provider in years.? No previous diagnosis of hypertension Started on Norvasc, schedule appointment with primary care provider to titrate as necessary Morbid obesity BMI 50.2 Discussed importance of weight management as this may be contributing to worsening of other comorbidities Time Spent with Patient Time attestation: Total time spent providing and/or coordinating discharge services: Discharge coordination time: Greater than 30 minutes Quality: Safe Use of Opioids Does Pt have an Active Cancer Diagnosis on the Problem List?: No Quality: Stroke Does the patient have a stroke diagnosis?: No Physical Exam Vital Signs: Vital Signs: Last Vital Signs Temp 96.7 F L 11/28/21 11:12 Pulse 94 11/28/21 11:12 Resp 18 11/28/21 11:12 BP 176/92 H 11/28/21 11:12 Pulse Ox 98 11/28/21 11:12 O2 Del Method 11/28/21 11:12 BMI result Body Mass Index 50.2 Const: General: alert and awake Nutritional Appearance: obese Orientation/consciousness: patient oriented x3 Resp: Effort & Inspection: normal respiratory effort and able to speak in complete sentences Cardio: Rate: regular rate Heart sounds: S1 normal heart sound present and S2 normal heart sound present GI: Inspection: Yes Abdominal panniculus present and Yes obesity Palpation (GI): Soft to palpation and nontender Skin: Other: Neuro: General: patient oriented x3 and CN's II-XI intact bilaterally Extrem: Other: Able to move all 4 extremities spontaneously DS: Data Data Completed and Pending Labs on day of discharge: Laboratory Results - last 24 hr 11/28/21 11/28/21 11/28/21 00:30 00:30 00:30 WBC 7.6 RBC 4.86 Hgb 12.8 L Hct 40.8 L MCV 84.0 MCH 26.3 L MCHC 31.4 RDW 15.5 Plt Count 294 MPV 8.5 L Immature Gran % (Auto) 0.4 Neut % (Auto) 69.9 Lymph % (Auto) 22.2 [place] % (Auto) 6.7 Eos % (Auto) 0.4 Baso % (Auto) 0.4 Lymph # (Auto) 1.7 [place] # (Auto) 0.5 Eos # (Auto) 0.0 Baso # (Auto) 0.0 Abs Immat Gran (auto) 0.03 Absolute Neuts (auto) 5.3 Absolute Nucleated RBC 0.000 Nucleated RBC % (auto) 0.0 ESR aPTT Heparin Protocol Sodium 140 Potassium 4.3 Chloride 101 Carbon Dioxide 27 Anion Gap 16 BUN 10 Creatinine 1.03 Estim Creat Clear Calc 120.0 Estimated GFR > 60 Random Glucose 97 D Estimat Average Glucose 114 Hemoglobin A1c % 5.6 Lactic Acid Lactic Acid F/U @ 2Hr Calcium 9.1 Total Bilirubin 0.5 AST 15 ALT 15 Alkaline Phosphatase 57 C-Reactive Protein 1.20 H Total Protein 7.4 Albumin 4.3 11/28/21 11/28/21 11/28/21 00:30 00:30 05:02 WBC RBC Hgb Hct MCV MCH MCHC RDW Plt Count MPV Immature Gran % (Auto) Neut % (Auto) Lymph % (Auto) [place] % (Auto) Eos % (Auto) Baso % (Auto) Lymph # (Auto) [place] # (Auto) Eos # (Auto) Baso # (Auto) Abs Immat Gran (auto) Absolute Neuts (auto) Absolute Nucleated RBC Nucleated RBC % (auto) ESR 22 H aPTT Heparin Protocol Sodium Potassium Chloride Carbon Dioxide Anion Gap BUN Creatinine Estim Creat Clear Calc Estimated GFR Random Glucose Estimat Average Glucose Hemoglobin A1c % Lactic Acid 2.9 H* Lactic Acid F/U @ 2Hr 1.0 Calcium Total Bilirubin AST ALT Alkaline Phosphatase C-Reactive Protein Total Protein Albumin 11/28/21 11/28/21 11/28/21 07:26 07:26 07:26 WBC 9.8 RBC 5.09 Hgb 13.3 L Hct 43.2 MCV 84.9 MCH 26.1 L MCHC 30.8 L RDW 15.6 Plt Count 319 MPV 8.9 L Immature Gran % (Auto) 0.4 Neut % (Auto) 67.8 Lymph % (Auto) 23.7 [place] % (Auto) 6.9 Eos % (Auto) 0.7 Baso % (Auto) 0.5 Lymph # (Auto) 2.3 [place] # (Auto) 0.7 Eos # (Auto) 0.1 Baso # (Auto) 0.1 Abs Immat Gran (auto) 0.04 H Absolute Neuts (auto) 6.6 Absolute Nucleated RBC 0.000 Nucleated RBC % (auto) 0.0 ESR aPTT Heparin Protocol 31.6 L Sodium 140 Potassium 4.3 Chloride 104 Carbon Dioxide 24 Anion Gap 16 BUN 10 Creatinine 0.96 Estim Creat Clear Calc 128.8 Estimated GFR > 60 Random Glucose 85 Estimat Average Glucose Hemoglobin A1c % Lactic Acid Lactic Acid F/U @ 2Hr Calcium 8.8 Total Bilirubin AST ALT Alkaline Phosphatase C-Reactive Protein Total Protein Albumin Discharge Plan Discharge Anticipated Discharge Date/Time: 11/29/21 11:41 Patient Disposition: Home, Self-Care Discharge Diagnosis: Cellulitis Hypertension Referrals: Mohinder Oliveros MD [Physician] - 1 Week (Vascular surgery evaluation) Jenelle Moy MD [Physician] - 1 Week (Call to make apt for wound care ) Discharge Medications: New doxycycline hyclate 100 mg tablet 100 mg PO BID 7 Days Qty: 14 0RF amlodipine 5 mg Tablet 5 mg PO DAILY Qty: 30 0RF Protocol: Hold for SBP< HOLD for SBP < : 90 Continued acetaminophen 325 mg Tablet 650 mg PO Q4H PRN (Reason: Pain (Scale Score 1-3)) melatonin 10 mg Tablet 60 mg PO BEDTIME PRN (Reason: Sleep) Discontinued ibuprofen 200 mg Tablet 400 mg PO Q6H PRN (Reason: Pain (Scale Score 1-3)) Discharge Orders: Discharge Order (Routine); Ordered 11/29/21 Ordered By: Ml Holland Diet: Advance to usual diet Activity on Discharge: As tolerated Stand Alone Forms: Patient Portal Discharge page Activity Restrictions/Additional Instructions: Continue cleansing right [place] wound with clean water mild soap, may leave open or cover with gauze wrap when active Apply Lac-Hydrin lotion twice daily to bilateral lower extremities for severe dry skin Care Plan Goals: Complete resolution of symptoms Health Concerns: retained sutures right leg - sutures removed right leg cellulitis elevated blood pressure, started on new medication Norvasc acute kidney injury - unclear baseline renal function, creatinine improving elevated lactic acid Plan of Treatment: Complete course of antibiotics as prescribed Obtain a primary care physician soon as possible Call to schedule follow-up appointment and wound care clinic Call to schedule an appointment with Dr. Oliveros, vascular surgeon to assess blood flow to lower extremities Assessment: See discharge summary Patient Instructions: Stitches Removal (ED) Discharge Date/Time: 11/29/21 12:50
--- NOTE | 2021-11-28 12:19 | PC.NURSE ---
Attempted to proceed with ama paperwork- per pt I want to speak to the head dr, I 'm not signing anything. I have my optical laboratory manager on the phone . When I attempted to fact find and answer questions regarding concerns with ama process, pt repeated the same statement above. I offered to have Dinorah GONSALEZ come to speak to the patient and Per pt: i'm done w/ her. Contact made to dinorah GONSALEZ. Plan at this time is for her to reach out to supervising hospitalist regarding situation.
--- NOTE | 2021-11-28 12:48 | PC.NURSE ---
recliner brought to bedside. pt to be given po antihypertensive. mitzi cole to reevaluate after rounds.
[2021-11-28] MEDS: amLODIPine Besylate 2.5 MG TABLET PO ×2 (13:09→17:38)
--- NOTE | 2021-11-28 13:13 | MHC.CM.PN ---
pt dcd home no skilled serv ceis ordered by md pt home on oral antibiotuics
--- NOTE | 2021-11-28 13:14 | MHC.CM.PN ---
pt left ama
--- NOTE | 2021-11-28 14:39 | PC.NURSE ---
report given to Galina BEDOLLA in [facility]
--- NOTE | 2021-11-28 15:54 | P.PNIM_ITS ---
Subjective Subjective Date of Service: 11/28/21 Interval History: Seen and examined this morning Follow-up for right leg cellulitis Sutures removed by surgery this morning pain has improved following removal of sutures Patient initially planning to leave against medical advice, now willing to stay in the hospital overnight Review of Systems Review of Systems: Yes all other systems are reviewed and are negative Constitutional Constitutional: Denies chills and Denies fever(s) ENT Ears, Nose, Mouth, and Throat: Denies dizziness Cardiovascular Cardiovascular: Denies chest pain, Denies palpitations and Denies dyspnea Respiratory Respiratory: Denies cough and Denies dyspnea Gastrointestinal Gastrointestinal: Denies abdominal pain, Denies constipation, Denies diarrhea, Denies nausea and Denies vomiting Neurologic Neurologic: Denies dizziness Endocrine Endocrine: Denies palpitations Physical Exam Vital Signs: Vital Signs: Last Vital Signs Temp 96.7 F L 11/28/21 11:12 Pulse 96 11/28/21 13:11 Resp 18 11/28/21 13:11 BP 150/77 H 11/28/21 13:11 Pulse Ox 98 11/28/21 11:12 O2 Del Method 11/28/21 11:12 BMI result Body Mass Index 50.2 Const: General: comfortable, no acute distress, alert and awake Nutritional Appearance: obese Orientation/consciousness: patient oriented x3 Resp: Effort & Inspection: normal respiratory effort and able to speak in complete sentences Cardio: Rate: regular rate Heart sounds: S1 normal heart sound present and S2 normal heart sound present GI: Inspection: Yes Abdominal panniculus present and Yes obesity Palpation (GI): Soft to palpation and nontender Skin: Other: venous stasis changes b/l lower extremities Neuro: General: patient oriented x3 and CN's II-XI intact bilaterally Objective Data Active Medications Acetaminophen (Acetaminophen 325 Mg Tablet) 650 mg PO Q6H PRN PRN Reason: Pain, Mild (Pain Scale 1-3) Amlodipine Besylate (Amlodipine Besylate 2.5 Mg Tablet) 2.5 mg PO DAILY PENDING SALE TO [facility]; Protocol Last Admin: 11/28/21 13:09 Dose: 2.5 mg Documented By: KIMBERLY Docusate Sodium (Docusate Sodium 100 Mg Capsule) 100 mg PO DAILY PRN PRN Reason: Constipation Enoxaparin Sodium (Enoxaparin Sodium 40 Mg/0.4 Ml Syringe) 40 mg SUBCUT Q24H PENDING SALE TO [facility] Last Admin: 11/28/21 07:19 Dose: 40 mg Documented By: JOSLYN Vancomycin HCl 1,000 mg/ (Sodium Chloride) 270 mls @ 270 mls/hr IV Q12H PENDING SALE TO [facility] Melatonin (Melatonin 3 Mg Tablet) 6 mg PO BEDTIME PRN PRN Reason: Sleep Ondansetron HCl (Ondansetron Hcl 4 Mg/2 Ml Vial) 4 mg IVPUSH Q8H PRN PRN Reason: Nausea and Vomiting Pharmacy Consult (Consult Rx Perform Med Rec) 1 each MISCELLANE ONCE PRN PRN Reason: Consult order Pharmacy Consult (Consult Rx Vancomycin Dosing) 1 each MISCELLANE DAILY PRN PRN Reason: Consult order Sodium Chloride (0.9 % Sodium Chloride Flush 3 Ml Syringe) 3 ml IVFLUSH QSHIFT PENDING SALE TO [facility] Last Admin: 11/28/21 08:20 Dose: Not Given Documented By: YESI Non-Admin Reason: Med Not Available Labs CBC & Chem 7: 11/28/21 07:26 11/28/21 07:26 Labs: Laboratory Results - last 24 hr 11/28/21 11/28/21 11/28/21 00:30 00:30 00:30 MCV 84.0 MCH 26.3 L MCHC 31.4 RDW 15.5 Plt Count 294 MPV 8.5 L Immature Gran % (Auto) 0.4 Neut % (Auto) 69.9 Lymph % (Auto) 22.2 [place] % (Auto) 6.7 Eos % (Auto) 0.4 Baso % (Auto) 0.4 Lymph # (Auto) 1.7 [place] # (Auto) 0.5 Eos # (Auto) 0.0 Baso # (Auto) 0.0 Abs Immat Gran (auto) 0.03 Absolute Neuts (auto) 5.3 Absolute Nucleated RBC 0.000 Nucleated RBC % (auto) 0.0 ESR aPTT Heparin Protocol Anion Gap 16 Estim Creat Clear Calc 120.0 Estimated GFR > 60 Random Glucose 97 D Estimat Average Glucose 114 Hemoglobin A1c % 5.6 Lactic Acid Lactic Acid F/U @ 2Hr Calcium 9.1 Total Bilirubin 0.5 AST 15 ALT 15 Alkaline Phosphatase 57 C-Reactive Protein 1.20 H Total Protein 7.4 Albumin 4.3 11/28/21 11/28/21 11/28/21 00:30 00:30 05:02 MCV MCH MCHC RDW Plt Count MPV Immature Gran % (Auto) Neut % (Auto) Lymph % (Auto) [place] % (Auto) Eos % (Auto) Baso % (Auto) Lymph # (Auto) [place] # (Auto) Eos # (Auto) Baso # (Auto) Abs Immat Gran (auto) Absolute Neuts (auto) Absolute Nucleated RBC Nucleated RBC % (auto) ESR 22 H aPTT Heparin Protocol Anion Gap Estim Creat Clear Calc Estimated GFR Random Glucose Estimat Average Glucose Hemoglobin A1c % Lactic Acid 2.9 H* Lactic Acid F/U @ 2Hr 1.0 Calcium Total Bilirubin AST ALT Alkaline Phosphatase C-Reactive Protein Total Protein Albumin 11/28/21 11/28/21 11/28/21 07:26 07:26 07:26 MCV 84.9 MCH 26.1 L MCHC 30.8 L RDW 15.6 Plt Count 319 MPV 8.9 L Immature Gran % (Auto) 0.4 Neut % (Auto) 67.8 Lymph % (Auto) 23.7 [place] % (Auto) 6.9 Eos % (Auto) 0.7 Baso % (Auto) 0.5 Lymph # (Auto) 2.3 [place] # (Auto) 0.7 Eos # (Auto) 0.1 Baso # (Auto) 0.1 Abs Immat Gran (auto) 0.04 H Absolute Neuts (auto) 6.6 Absolute Nucleated RBC 0.000 Nucleated RBC % (auto) 0.0 ESR aPTT Heparin Protocol 31.6 L Anion Gap 16 Estim Creat Clear Calc 128.8 Estimated GFR > 60 Random Glucose 85 Estimat Average Glucose Hemoglobin A1c % Lactic Acid Lactic Acid F/U @ 2Hr Calcium 8.8 Total Bilirubin AST ALT Alkaline Phosphatase C-Reactive Protein Total Protein Albumin Assessment and Plan (1) Cellulitis: Status: Acute (2) HTN (hypertension): Status: Acute Plan 56-year-old male with no significant past medical history presents to hospital with nonhealing ulcer in his right leg and wanting suture removed retained foreign body/retained sutures with surrounding cellulitis sutures removed by surgery Purulent discharge noted, some expressed by surgery, no area of abscess -continue IV vanco for now, likely change to po doxy on discharge -recommend outpatient vascular surgery eval and follow up in wound care clinic lactic acidosis no sepsis resolved with IVF HTN no PCP, hasn't seen medical provider in years. No previous diagnosis of hypertension - will start norvasc, up titrate prn Morbid obesity BMI 50.2 pt states he has been making changes to diet in attempt to lose weight DVT prophylaxis: Lovenox code status - full code Quality Stroke Does the patient have a stroke diagnosis?: No VTE Prior VTE?: No VTE Risk Level:: Medical - moderate - high VTE Device Contraindication: Treatment Not Indicated VTE Drug Contraindication: N/A - Med Ordered
[2021-11-28] MEDS: 0.9 % Sodium Chloride Flush 3 ML SYRINGE IVFLUSH ×2 (16:19→21:26)
--- NOTE | 2021-11-28 16:30 | PC.NURSE ---
Assumed care of patient at this time.
[2021-11-28] MEDS: vancomycin HCL 1,000 MG in 0.9 % Sodium Chloride 250 ML 270 MG IV (17:32)
[2021-11-28 18:33] LABS: COVID-19 Test Negative (Negative); IDNOW Serial# 55D5AD1C
[2021-11-29 07:10] LABS: Vancomycin Trough 8.5 mcg/mL (10.0-20.0)
[2021-11-29 07:24] LABS: Creatinine Clr Calc Pharmacy 131.5; Estimated Glomerular Filt Rate > 60
[2021-11-29 07:31] VITALS: BP 175/79; PULSE 85; RESP 18; TEMP 36.7; O2SAT 99
--- NOTE | 2021-11-29 07:39 | HE.PHANOTE ---
Vancomycin Dosing Addendum Vancomycin Trough 8.5 after 2 doses. Cr improving. Increasing dose to 1500 mg q12h for predicted AUC of 526. Next level 11/30/21 @0600.
[2021-11-29] MEDS: vancomycin HCL 1,500 MG in 0.9 % Sodium Chloride 500 ML 333.33 MG IV (08:19)
[2021-11-29] MEDS: 0.9 % Sodium Chloride Flush 3 ML SYRINGE IVFLUSH (08:20)
[2021-11-29] MEDS: amLODIPine Besylate 5 MG TABLET PO (08:20)
--- NOTE | 2021-11-29 11:11 | MHC.CM.PN ---
Addendum entered by Radha Lamar 11/29/21 11:14: He is discharged today. Original Note: KI 11/29/21 Male 56 DX foot wound He lives w his mother. He is independent with all functional mobility and drives. He will follow up with the wound clinic. He does not have a PCP. [facility] [place] MD contact info provided. DP Home self care and self transport.
[2021-11-29 11:22] VITALS: BP 151/84; PULSE 94; RESP 17; TEMP 36.5; O2SAT 95
--- NOTE | 2021-11-29 11:45 | PM.DS ---
DS: Providers Provider Date of Service: 11/29/21 Date of admission: 11/28/21 05:06 Primary care physician: None Physician Consults: 11/28/21 05:06 Consult to General Surgery Routine Consulting Provider: Galen Ramsey Reason for consultation: wound, needing stiches out, Has provider been notified: No Consult to Infectious Diseases Routine Consulting Provider: Sarah Diamond Reason for consultation: non-healing wound Has provider been notified: No Attending physician on discharge: Arleen Gray Discharging clinician: Ml Holland DS: Diagnosis Discharge Diagnosis (1) Cellulitis: Status: Acute (2) HTN (hypertension): Status: Acute DS: Summary Hospital Course Hospital Course: From H&P on day of admission 56-year-old male with no significant past medical history who presents to the hospital with complaints of right leg laceration wanting sutures removed.? Patient was seen in the ED 14 days ago after falling from a ladder and sustaining a laceration to the lateral aspect of his right leg.? He received over 50 sutures in the ED.? He reports that he was taking care of it at home, with Tegaderm, and keeping it dry, but the sutures kept getting stuck in his pads, and really being bothersome and therefore he came to the ED to have them removed.? He reports no pain, he does report drainage of bloody liquid, denies any fever or chills, with no swelling on the wound, he has chronic changes of skin in his lower extremitities that has not changed.Patient denies any chest pain, no shortness of breath, no abdominal pain nausea or vomiting, no diarrhea constipation, no urinary symptoms and no lower extremity edema .? retained foreign body/retained sutures with surrounding cellulitis sutures removed by surgeryin the ED Purulent discharge noted, some expressed by surgery, no area of abscess Treated with IV vancomycin, transition to doxycycline for total 14 days as an outpatient Plan to schedule appointment with wound care center as well as vascular surgery Keep wound clean, may cleanse with clean water and mild soap, keep open or cover with gauze and nonstick dressing with activity lactic acidosis no sepsis resolved with IVF HTN no PCP, hasn't seen medical provider in years.? No previous diagnosis of hypertension Started on Norvasc, schedule appointment with primary care provider to titrate as necessary Morbid obesity BMI 50.2 Discussed importance of weight management as this may be contributing to worsening of other comorbidities Time Spent with Patient Time attestation: Total time spent providing and/or coordinating discharge services: Discharge coordination time: Greater than 30 minutes Quality: Safe Use of Opioids Does Pt have an Active Cancer Diagnosis on the Problem List?: No Quality: Stroke Does the patient have a stroke diagnosis?: No Physical Exam Vital Signs: Vital Signs: Last Vital Signs Temp 97.7 F 11/29/21 11:22 Pulse 94 11/29/21 11:22 Resp 17 11/29/21 11:22 BP 151/84 H 11/29/21 11:22 Pulse Ox 95 11/29/21 11:22 O2 Del Method 11/29/21 11:22 BMI result Body Mass Index 50.2 Appearing in no acute distress head is normocephalic atraumatic eyes pupils are PERRLA sclera is anicteric mouth throat mucous membranes are intact and moist neck is supple no lymphadenopathy, no JVD noted lung sounds are clear to auscultation heart regular rate rhythm, clear S1, S2 positive bowel sounds, abdomen is soft, nontender neuro patient is alert x3, no focal deficits Right lower extremity lateral [place] 6 in wound, no drainage noted, sutures removed DS: Data Data Completed and Pending Labs on day of discharge: Laboratory Results - last 24 hr 11/28/21 11/29/21 11/29/21 18:00 05:50 05:50 Creatinine 0.94 Estim Creat Clear Calc 131.5 Estimated GFR > 60 Vancomycin Trough 8.5 L COVID-19 (EBONI) Negative COVID-19 Clin Com See Note Preliminary micro results at discharge 11/28/21 00:30 Blood Culture - Preliminary Blood - Venous No growth after 24 hours. 11/28/21 00:30 Blood Culture - Preliminary Blood - Venous No growth after 24 hours. Discharge Plan Discharge Anticipated Discharge Date/Time: 11/29/21 11:41 Patient Disposition: Home, Self-Care Discharge Diagnosis: Cellulitis Hypertension Referrals: Mohinder Oliveros MD [Physician] - 1 Week (Vascular surgery evaluation) Jenelle Moy MD [Physician] - 1 Week (Call to make apt for wound care ) Discharge Medications: New doxycycline hyclate 100 mg tablet 100 mg PO BID 7 Days Qty: 14 0RF Lac-Hydrin Five 5 % lotion 1 appl topical BID Qty: 226 0RF Continued acetaminophen 325 mg Tablet 650 mg PO Q4H PRN (Reason: Pain (Scale Score 1-3)) melatonin 10 mg Tablet 60 mg PO BEDTIME PRN (Reason: Sleep) Discontinued ibuprofen 200 mg Tablet 400 mg PO Q6H PRN (Reason: Pain (Scale Score 1-3)) Discharge Orders: Discharge Order (Routine); Ordered 11/29/21 Ordered By: Ml Holland Diet: Advance to usual diet Activity on Discharge: As tolerated Stand Alone Forms: Patient Portal Discharge page Activity Restrictions/Additional Instructions: Continue cleansing right [place] wound with clean water mild soap, may leave open or cover with gauze wrap when active Apply Lac-Hydrin lotion twice daily to bilateral lower extremities for severe dry skin Care Plan Goals: Complete resolution of symptoms Health Concerns: retained sutures right leg - sutures removed right leg cellulitis elevated blood pressure, started on new medication Norvasc acute kidney injury - unclear baseline renal function, creatinine improving elevated lactic acid Plan of Treatment: Complete course of antibiotics as prescribed Obtain a primary care physician soon as possible Call to schedule follow-up appointment and wound care clinic Call to schedule an appointment with Dr. Oliveros, vascular surgeon to assess blood flow to lower extremities Assessment: See discharge summary Patient Instructions: Stitches Removal (ED)
== END 2021-11-29 12:50 | disposition home or self-care (01) ==
LOC: HO.ED 11-28 00:40 → HO.EDOVER 11-28 05:37 → HO.S3 11-28 18:53
PROVIDERS: Physician Assistant; Physician Assistant Medical; Admitting Provider Internal Medicine; Emergency Provider Student in an Organized Health Care Education/Training Program; Visit Provider Nurse Practitioner Acute Care
DX: Z48.02 Encounter for removal of sutures (principal); T81.9XXA Unspecified complication of procedure, initial encounter; Z18.89 Other specified retained foreign body fragments; Y82.8 Other medical devices associated with adverse incidents; Y92.9 Unspecified place or not applicable; L03.115 Cellulitis of right lower limb; N17.9 Acute kidney failure, unspecified; E87.20 Acidosis, unspecified; M79.661 Pain in right lower leg; I10 Essential (primary) hypertension; Z20.822 Contact with and (suspected) exposure to COVID-19
CPT/HCPCS: 36415; 80048; 80053; 80202; 82565; 83036; 83605; 85025; 85652; 85730; 86140; 87040; 87635; 96365; 96366; 96367; 96372; 99218; 99285; J0696; J1650; J3370

== ENCOUNTER → 2021-12-10 08:53 | Outpatient (BNVA) | payer OTHER, SELFPAY | PROVIDERS: Visit Provider Surgery Vascular Surgery | DX: I83.11 Varicose veins of right lower extremity with inflammation (principal) | CPT/HCPCS: 99202 ==

== ENCOUNTER 2021-12-11 09:00 | Outpatient (RCR) | payer OTHER, SELFPAY | END 2022-01-20 14:10 | disposition home or self-care (01) | LOC: HO.WCC 09:00 | PROVIDERS: Visit Provider Surgery | DX: S81.811D Laceration without foreign body, right lower leg, subsequent encounter (principal); I87.2 Venous insufficiency (chronic) (peripheral); R73.03 Prediabetes; I10 Essential (primary) hypertension; W11.XXXD Fall on and from ladder, subsequent encounter; Z87.891 Personal history of nicotine dependence | CPT/HCPCS: 11042; 97602; 99212; 99213 ==

== ENCOUNTER 2022-03-18 08:19 | Outpatient (REF) | payer OTHER, SELFPAY ==
--- NOTE | ~2022-03-18 | US_ITS ---
EXAMINATION: US LOWER EXTREMITY VENOUS (REFLUX EXAM), BILATERAL CLINICAL INDICATION: Chronic venous insufficiency with lower extremity varicose veins COMPARISON: None. TECHNIQUE: Color flow triplex imaging and compression Doppler was performed to evaluate both the deep and the superficial systems bilaterally. To evaluate the superficial system, the examination was performed in the upright position. Color-flow Doppler ultrasound and compression ultrasound were utilized. In addition, maneuvers were utilized to demonstrate reflux. FINDINGS: 1. DEEP VENOUS ULTRASOUND OF THE RIGHT LOWER EXTREMITY: Common Femoral Vein: Compressible, normal respiratory variation and augmented flow. Femoral Vein: Compressible, normal color flow and augmentation. Popliteal Vein: Compressible, normal augmentation. Deep Reflux: There is no evidence of reflux in the deep system in either the common femoral vein or the popliteal vein. There is no evidence of a De Leon's cyst. 2. SUPERFICIAL ULTRASOUND WITH DOPPLER OF RIGHT LOWER EXTREMITY: GREAT SAPHENOUS VEIN: Saphenofemoral Junction: 0.8 cm; Reflux: 0 ms Proximal Thigh: 0.8 cm; Reflux: 0 ms Mid Thigh: 0.7 cm; Reflux: 0 ms Above Knee: 0.7 cm; Reflux: 0 ms At Knee: 0.8 cm; Reflux: 0 ms Below Knee: 0.6 cm; Reflux: 1752 ms Mid Calf: 0.6 cm; Reflux: 1780 ms Ankle: 0.5 cm; Reflux: 956 ms DUPLICATED MEDIAL GREAT SAPHENOUS VEIN: Diameter: None Imaged Reflux: NA DUPLICATED LATERAL GREAT SAPHENOUS VEIN: Diameter: 0.3 cm Reflux: None SMALL SAPHENOUS VEIN: Proximal: 0.6 cm; Reflux: 0 ms Distal: 0.3 cm; Reflux: 672 ms VEIN OF GIACOMINI: None Imaged. PERFORATORS: Location: Mid thigh Size: 0.5 cm Reflux: None VARICOSITIES: Location: Knee and proximal calf Size: 0.3 to 0.5 cm Reflux: Ranging from 600 ms to 3240 ms 3. DEEP VENOUS ULTRASOUND OF THE LEFT LOWER EXTREMITY: Common Femoral Vein: Compressible, normal respiratory variation and augmented flow. Femoral Vein: Compressible, normal color flow and augmentation. Popliteal Vein: Compressible, normal augmentation. Deep Reflux: There is no evidence of reflux in the deep system in either the common femoral vein or the popliteal vein. There is no evidence of a De Leon's cyst. 4. SUPERFICIAL ULTRASOUND WITH DOPPLER OF LEFT LOWER EXTREMITY: GREAT SAPHENOUS VEIN: Saphenofemoral Junction: 1.1 cm; Reflux: 0 ms Proximal Thigh: 0.6 cm; Reflux: 0 ms Mid Thigh: 0.6 cm; Reflux: 2708 ms Above Knee: 0.7 cm; Reflux: 1500 ms At Knee: 0.4 cm; Reflux: 0 ms Below Knee: 0.2 cm; Reflux: 616 ms Mid Calf: 0.3 cm; Reflux: 412 ms Ankle: 0.5 cm; Reflux: 544 ms DUPLICATED MEDIAL GREAT SAPHENOUS VEIN: Diameter: None Imaged Reflux: NA DUPLICATED LATERAL GREAT SAPHENOUS VEIN: Diameter: None Imaged Reflux: NA SMALL SAPHENOUS VEIN: Proximal: 0.1 cm; Reflux: 0 ms Distal: 0.2 cm; Reflux: 748 ms VEIN OF GIACOMINI: None Imaged. PERFORATORS: Location: None Imaged Size: NA Reflux: NA VARICOSITIES: Location: Proximal, mid and distal thigh, proximal and mid calf Size: 0.3 to 0.9 cm Reflux: Ranging from 628 to 2136 ms US/US venous duplex LE BI IMPRESSION: Right: Severe reflux in the right great saphenous vein throughout the calf with multiple branching varicosities as described above Left: Severe reflux in the left great saphenous vein within the thigh and calf with multiple branching varicosities as described above
== END 2022-03-18 08:20 | disposition home or self-care (01) ==
LOC: HO.US 08:19
PROVIDERS: Visit Provider Surgery Vascular Surgery
DX: I83.11 Varicose veins of right lower extremity with inflammation (principal)
CPT/HCPCS: 93970

== ENCOUNTER → 2022-03-26 09:45 | Outpatient (BNVA) | payer OTHER, SELFPAY | PROVIDERS: Visit Provider Surgery Vascular Surgery | DX: I83.212 Varicose veins of right lower extremity with both ulcer of calf and inflammation (principal); L97.219 Non-pressure chronic ulcer of right calf with unspecified severity; E66.01 Morbid (severe) obesity due to excess calories | CPT/HCPCS: 99212 ==

== ENCOUNTER 2022-04-08 15:03 | Emergency (ER) | payer OTHER, SELFPAY ==
--- NOTE | 2022-04-08 15:21 | ED.SKABFB ---
HPI - Skin/Abscess/Foreign Bdy General Chief complaint: Wound/Laceration Stated complaint: laceration l foot Time Seen by Provider: 04/08/22 15:27 Source: patient Mode of arrival: ambulatory Limitations: no limitations History of Present Illness HPI narrative: Patient is a 56-year-old male presents emergency department for evaluation of a laceration to the left ankle/foot from a [place] that occurred approximately 1 hour prior to arrival. He states there was a lot of bleeding that he was unable to control. He does endorse that his tetanus is up-to-date as he was seen here in November of 2021. Denies any anticoagulants usage. Denies numbness, tingling, cold sensation to the foot. Related Data Home Medications Medication Instructions Recorded Confirmed acetaminophen 325 mg tablet 650 mg PO Q4H PRN Pain (Scale 11/28/21 11/28/21 Score 1-3) melatonin 10 mg tablet 60 mg PO BEDTIME PRN Sleep 11/28/21 11/28/21 Previous Rx's Medication Instructions Recorded doxycycline hyclate 100 mg tablet 100 mg PO BID 7 days #14 tabs 11/28/21 amlodipine 5 mg tablet 5 mg PO DAILY #30 tabs 11/29/21 Allergies Allergy/AdvReac Type Severity Reaction Status Date / Time No Known Allergies Allergy Verified 03/26/22 09:50 Review of Systems Review of Systems: Yes all other systems are reviewed and are negative PMFSH Past Medical History Attestation statement: The following information was validated with the patient. Source: old records reviewed Medical History HTN (hypertension) No pertinent past medical history Surgical History No pertinent past surgical history Family History Family History (Updated 11/28/21 @ 05:57 by Celina Haywood MD) Other No family history of coronary artery disease Social History Social History Alcohol intake: current Patient Tobacco Use Status: Former Tobacco user Cigarette Packs Per Day: 3 Substance Use Type: Marijuana Advance Directives: No Advance Directives Information Provided: No service: No Current occupational status: other Physical Exam Vital Signs: Vital Signs: Last Vital Signs Temp 98 F 04/08/22 15:24 Pulse 100 04/08/22 15:24 Resp 19 04/08/22 15:24 BP 134/77 04/08/22 15:24 Pulse Ox 99 04/08/22 15:24 O2 Del Method 04/08/22 15:24 BMI result Body Mass Index 50.2 Appearance: Alert.?Oriented to person, place and time. No acute distress.?Normal affect. CVS: Heart sounds normal. Normal heart rate and rhythm.? Pulses normal.?? Respiratory: No respiratory distress.? Lung sounds clear to auscultation bilaterally?? Skin: Skin warm and dry.? Normal skin color.? 2 pinpoint lacerations to left medial foot just inferior to the medial malleolus, no active bleedingPatient lives Neuro: Moves all extremities spontaneously. Sensation intact bilaterally. Ambulates with normal steady gait. Course Course Course Narrative: left medial ankle laceration from mechanical saw, approximately 1 hour [employer]. Cleansed with NS, there are 2 very small pinpoint like lacerations, appears to have lacerated a varicose vein, no active bleeding Denies AC usage Tdap November Medical Decision Making Medical Decision Making MDM Narrative: Patient is a 56-year-old male presents emergency department for evaluation of a laceration. Overall he is well-appearing, nontoxic. The left medial foot just inferior to the medial malleolus has presence of 2 very small pinpoint like lacerations, 1 of which appears to have lacerated a varicose vein which is what I suspect was the cause of significant bleeding. At the time of my examination there is no active bleeding, not consistent with arterial bleeding. Extremity is neurovascularly intact distally. Lacerations are superficial, low suspicion for any osseous involvement, XR imaging deferred. The foot was cleansed with normal saline, there was no rebleed that occurred. Topical bacitracin was applied, and a light pressure dressing covered it. His Tdap was updated October 2021. He is not on any anticoagulants. We discussed home management, wound care, worrisome signs and symptoms that should re-evaluated in the emergency department. Advised outpatient follow-up with primary care provider as needed. Discussed signs of infection. Stable for discharge, ambulatory with a steady gait. Differential Diagnosis Differential Diagnoses: The differential diagnosis associated with the presentation includes External Record Review External record reviewed: Outpatient record Prescription Management I considered prescription management with: Antibiotic Discharge Plan Discharge Clinical Impression: Laceration of foot Qualifiers: Encounter type: initial encounter Laterality: left Qualified Code(s): S91.312A - Laceration without foreign body, left foot, initial encounter Patient Disposition: Home, Self-Care Instructions: Laceration (ED) Additional Instructions: Cleanse the area twice daily with warm water and mild unscented soap. Apply topical or bacitracin/antibiotic ointment to the area. You may place a bandage to this site. If any bleeding occurs, apply pressure to this area. If you develop surrounding redness, swelling, pus-like drainage, pain, fevers, chills in the should be re-evaluated. You may follow-up with your primary care provider. Please feel free to return back to emergency department any new or worsening symptoms or concerns. Prescriptions: No Action acetaminophen 325 mg Tablet 650 mg PO Q4H PRN (Reason: Pain (Scale Score 1-3)) melatonin 10 mg Tablet 60 mg PO BEDTIME PRN (Reason: Sleep) doxycycline hyclate 100 mg tablet 100 mg PO BID 7 Days Qty: 14 0RF amlodipine 5 mg Tablet 5 mg PO DAILY Qty: 30 0RF Protocol: Hold for SBP< HOLD for SBP < : 90 Referrals: Physician,None [Primary Care Provider] - Interventions: ED Discharge Assessment Last Done: 04/08/22 15:42 Discharge Date/Time: 04/08/22 15:44
[2022-04-08 15:24] VITALS: BP 134/77; PULSE 100; RESP 19; TEMP 36.6; O2SAT 99; BMI 50.2
== END 2022-04-08 15:44 | disposition home or self-care (01) ==
PROVIDERS: Emergency Provider Student in an Organized Health Care Education/Training Program
DX: S91.312A Laceration without foreign body, left foot, initial encounter (principal); W27.0XXA Contact with workbench tool, initial encounter; Y93.9 Activity, unspecified; Y92.9 Unspecified place or not applicable; Y99.9 Unspecified external cause status
CPT/HCPCS: 99282

== ENCOUNTER → 2022-05-22 10:48 | Outpatient (BNVA) | payer OTHER, SELFPAY | PROVIDERS: Visit Provider Surgery Vascular Surgery | DX: M79.604 Pain in right leg (principal); I83.11 Varicose veins of right lower extremity with inflammation; I10 Essential (primary) hypertension; Z68.43 Body mass index [BMI] 50.0-59.9, adult | CPT/HCPCS: 36475 ==

== ENCOUNTER 2022-05-25 11:20 | Outpatient (REF) | payer OTHER, SELFPAY ==
--- NOTE | ~2022-05-25 | US_ITS ---
EXAMINATION: TRIPLEX SCANNING OF RIGHT LOWER EXTREMITY; SUPERFICIAL ULTRASOUND WITH DOPPLER OF RIGHT LOWER EXTREMITY CLINICAL INFORMATION: Status post RF ablation of the right great saphenous vein. Originally performed on 05/22/2022. COMPARISON: 03/18/2022. TECHNIQUE: Color flow triplex imaging and compression Doppler were performed as well as superficial ultrasound with Doppler. FINDINGS: TRIPLEX SCANNING OF RIGHT LOWER EXTREMITY: Respiratory variation, normal compression and augmented flow are noted throughout the lower extremity. The visualized common femoral vein, femoral vein, profunda femoral vein, popliteal vein and the calf veins show no evidence of deep venous thrombosis. There is no evidence of De Leon's cyst. SUPERFICIAL ULTRASOUND WITH DOPPLER OF RIGHT LOWER EXTREMITY: The right great saphenous vein is occluded from the access site to 3.0 cm before the sapheno-femoral junction. There is no extension of thrombus into the deep system. There is an enlarged lymph node in the right groin which is unchanged. US/US venous duplex LE RT IMPRESSION: 1. Normal triplex scan of the right without evidence of deep venous thrombosis. 2. Excellent appearance status post ablation of the right great saphenous vein.
== END 2022-05-25 11:21 | disposition home or self-care (01) ==
LOC: HO.HMGCX 11:20
PROVIDERS: Visit Provider Surgery Vascular Surgery
DX: M79.604 Pain in right leg (principal)
CPT/HCPCS: 93971

== ENCOUNTER → 2022-06-02 14:10 | Outpatient (BNVA) | payer OTHER, SELFPAY | PROVIDERS: Visit Provider Surgery Vascular Surgery | DX: I83.12 Varicose veins of left lower extremity with inflammation (principal); I83.11 Varicose veins of right lower extremity with inflammation | CPT/HCPCS: 99212 ==

== ENCOUNTER → 2022-06-19 12:30 | Outpatient (BNVA) | payer OTHER, SELFPAY | PROVIDERS: Visit Provider Surgery Vascular Surgery | DX: M79.605 Pain in left leg (principal); I10 Essential (primary) hypertension | CPT/HCPCS: 36475 ==

== ENCOUNTER 2022-06-22 15:11 | Outpatient (REF) | payer OTHER, SELFPAY ==
--- NOTE | ~2022-06-22 | US_ITS ---
EXAMINATION: US VENOUS ULTRASOUND WITH DOPPLER LOWER EXTREMITY, LEFT CLINICAL INFORMATION: Post left greater saphenous vein RFA 06/19/2022 COMPARISON: Previous exam 05/25/2022 TECHNIQUE: Ultrasound of the deep veins is performed from the hip to the calf with compression sonography and color and pulse Doppler assessment. Spectral analysis with color-flow imaging is performed. FINDINGS: There is normal venous compression and respiratory variation and augmented flow. The visualized common femoral vein, superficial femoral vein, profunda femoral vein, popliteal vein, and the trifurcation region shows no evidence of deep venous thrombosis. There is echogenic material in the left greater saphenous vein post RFA. This extends to 2.4 cm from the saphenofemoral junction. The left greater saphenous vein is closed. There is no significant popliteal fossa cyst. US/US venous duplex LE LT IMPRESSION: No DVT demonstrated in the left lower extremity.
== END 2022-06-22 15:12 | disposition home or self-care (01) ==
LOC: HO.HMGCX 15:11
PROVIDERS: Visit Provider Surgery Vascular Surgery
DX: M79.605 Pain in left leg (principal)
CPT/HCPCS: 93971

== ENCOUNTER → 2022-07-02 14:03 | Outpatient (BNVA) | payer OTHER, SELFPAY | PROVIDERS: Visit Provider Surgery Vascular Surgery | DX: I83.11 Varicose veins of right lower extremity with inflammation (principal); I83.12 Varicose veins of left lower extremity with inflammation | CPT/HCPCS: 99212 ==

== ENCOUNTER 2022-09-22 14:23 | Outpatient (AMB) | payer OTHER, SELFPAY ==
[2022-09-22 14:29] VITALS: BP 156/98; PULSE 80; O2SAT 96; BMI 48.6
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
[2022-09-22 15:07] VITALS: BP 154/80
== END 2022-09-22 15:17 | disposition home or self-care (01) ==
PROVIDERS: PCP Nurse Practitioner Family; Visit Provider Nurse Practitioner Family
DX: I10 Essential (primary) hypertension (principal); E66.01 Morbid (severe) obesity due to excess calories; Z68.42 Body mass index [BMI] 45.0-49.9, adult; M25.512 Pain in left shoulder; M54.9 Dorsalgia, unspecified; Z76.89 Persons encountering health services in other specified circumstances; G47.00 Insomnia, unspecified
CPT/HCPCS: 99214

== ENCOUNTER 2022-10-01 13:52 | Outpatient (AMB) | payer OTHER, SELFPAY ==
--- NOTE | 2022-10-01 13:56 | A.OFFVIS_ITS ---
Intake Vital Signs 10/01/22 13:59 Height 5 ft 10 in Weight 320 lb 6 oz BMI 46.0 BP 143/90 H Blood Pressure Location Lt brachial Position Sitting Respiration 16 Pulse 84 Pulse Source Pulse Oximeter Pulse Oximetry (%) 95 Oxygen Delivery Method Room Air Intake Visit Reasons: Dorsalgia, unspecified Allergies No Known Allergies Allergy (Verified 10/01/22 14:03) HPI HPI Comments History of Present Illness Details Lion is a very pleasant 56-year-old male presents to the office today for evaluation and management of his left shoulder and chronic lower back pain. 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 Today he reports that he has 0/10 pain, states he lifted something 2 days ago and has back was severe. He took Tylenol and the pain resolved. He attempted physical therapy 3 weeks ago at [facility] but it did not help. He has not tried chiropractor, acupuncture, massage or injections. He states that he overused NSAIDs in the past, cannot longer take them due to kidney injury. He does not want to try muscle relaxers or any other pain medications. Patient recently established care with new primary care provider, she has ordered lab work and x-rays none of which have been completed yet. In terms of muscle damage condition is described as aching and stabbing. Pain is negatively impacting his enjoyment of life, general activity, sleep and walking. Patient endorses occasional alcohol use, history of 2 pack a day smoker quit in 2013, denies current use of illicit substances. Patient denies implantable devices, pacemaker or defibrillator [facility] Medical History Cellulitis HTN (hypertension) No pertinent past medical history Surgical History No pertinent past surgical history Family History Other No family history of coronary artery disease Social History Alcohol intake: current Patient Tobacco Use Status: Former Tobacco user Cigarette Packs Per Day: 3 Substance Use Type: Marijuana service: No Current occupational status: other Cognitive needs: No Hearing needs: No Vision needs: No Review of Systems Const All systems reviewed & are unremarkable except as noted in HPI and below Physical Exam Vital Signs: Last Vital Signs Pulse 84 10/01/22 13:59 Resp 16 10/01/22 13:59 BP 143/90 H 10/01/22 13:59 Pulse Ox 95 10/01/22 13:59 Oxygen Delivery Method Room Air 10/01/22 13:59 BMI result Body Mass Index 46.0 General: awake, alert, oriented. Answers questions appropriately. Fully engaged in examination. Skin: warm, dry, intact HEENT: Normocephalic. Hearing intact. Cardiac: External chest normal in appearance. Respiratory: No cough, audible wheezing or stridor. Abdomen: without gross distension. Neurological: Oriented to person, place, time and situation. Thought process intact. No gait abnormalities appreciated. Psychiatric: Appropriate mood and affect. Good judgment and insight. Back/Spine/Pelvis Other: Able to stand on bilateral tiptoes and bilateral heels.? Able to transition from sit to stand unassisted. Ambulates with bilaterally normal heel strike and toe off Extrem Right upper extremity: shoulder/upper arm Details: tenderness Location: of the A-C joint and normal ROM Assessment & Plan Assessment & Plan (1) Left shoulder pain: Code(s): M25.512 - Pain in left shoulder (2) Lumbar spondylosis: Code(s): M47.816 - Spondylosis without myelopathy or radiculopathy, lumbar region Plan Lion is a very pleasant 56 year old male who presented to the office today for evaluation and management of lower back and left shoulder pain. Patient denies back pain during visit today. Left shoulder with full active and passive ROM, tenderness to palpation. Xrays ordered by PCP, patient to complete. Lidocaine patches ordered today, patient instructed on use. Patient will complete labs to evaluate A1c, consider fluoroscopy guided left shoulder intra-articular steroid injection with local anesthetic once xray and lab results reviewed. All questions and concerns have been answered and patient agrees with the plan. Follow up after completion of labs and imaging. Medications: New lidocaine 5% leave on most painful area for up to 12 hrs 1 patch topical DAILY 30 ea 3RF pain Coding Level of Care Code New Pt Level 4 (14936) Diagnoses Left shoulder pain M25.512 Lumbar spondylosis M47.816
[2022-10-01 13:59] VITALS: BP 143/90; PULSE 84; RESP 16; O2SAT 95; BMI 46.0
== END 2022-10-01 14:56 | disposition home or self-care (01) ==
PROVIDERS: PCP Nurse Practitioner Family; Visit Provider Registered Nurse Emergency
DX: M25.512 Pain in left shoulder (principal); M47.816 Spondylosis without myelopathy or radiculopathy, lumbar region
CPT/HCPCS: 99204

== ENCOUNTER → 2022-10-01 13:52 | Outpatient (BNVA) | payer OTHER, SELFPAY | PROVIDERS: PCP Nurse Practitioner Family; Visit Provider Registered Nurse Emergency | DX: M25.512 Pain in left shoulder (principal); M47.816 Spondylosis without myelopathy or radiculopathy, lumbar region | CPT/HCPCS: 99202 ==

== ENCOUNTER 2022-10-05 14:24 | Outpatient (AMB) | payer OTHER, SELFPAY ==
--- NOTE | 2022-10-05 15:33 | MHC.OFFWIV ---
Intake Vital Signs 10/05/22 15:58 Weight 320 lb BP 140/90 H Blood Pressure Location Rt brachial Position Sitting Pulse 72 Pulse Source Pulse Oximeter Pulse Oximetry (%) 97 Oxygen Delivery Method Room Air Intake Visit Reasons: EP swelling in right hand [phone] Intake Note: Patient here because he cut himself with wood on the palm of right hand, he stated he squeezed whatever junk was in there and believes it is infected. Patient Tobacco Use Status: Former Tobacco user Allergies No Known Allergies Allergy (Verified 10/05/22 16:07) Medication List - Last Reconciled 10/05/22 by Bairon Bone MD amlodipine 5 mg PO DAILY 90 days melatonin 10 mg PO BEDTIME PRN Do you need a note to return to daycare/school/sports/work: No HPI EP swelling in right hand [phone] HPI Details 56-year-old male presents to the office for a sick visit. Patient presents with a swelling in the right hand. A piece of wood had pierced him a week ago. He is unsure if the wood piece came out. Throbbing in the right hand which has since improved. [facility] Medical History Cellulitis HTN (hypertension) No pertinent past medical history Surgical History No pertinent past surgical history Family History Other No family history of coronary artery disease Social History Alcohol intake: current Patient Tobacco Use Status: Former Tobacco user Cigarette Packs Per Day: 3 Substance Use Type: Marijuana service: No Current occupational status: other Cognitive needs: No Hearing needs: No Vision needs: No Physical Exam Vital Signs: Last Vital Signs Pulse 72 10/05/22 15:58 BP 140/90 H 10/05/22 15:58 Pulse Ox 97 10/05/22 15:58 Oxygen Delivery Method Room Air 10/05/22 15:58 Extrem Other: Right hand: Swelling in the thenar eminence. Minimal tenderness. Assessment & Plan Assessment & Plan (1) Foreign body (FB) in soft tissue: Code(s): M79.5 - Residual foreign body in soft tissue Plan: X-ray images personally reviewed by me. No foreign body seen. Antibiotics called in. If symptoms do not improve or drainage recurs, to follow-up here. Medications: New sulfamethoxazole-trimethoprim 800-160 mg (Bactrim DS) 1 tab PO BID 14 tabs 0RF 7 days Coding Level of Care Code Est Pt Level 3 (76499) Diagnoses Foreign body (FB) in soft tissue M79.5
[2022-10-05 15:58] VITALS: BP 140/90; PULSE 72; O2SAT 97
== END 2022-10-05 16:30 | disposition home or self-care (01) ==
PROVIDERS: PCP Nurse Practitioner Family; Visit Provider Internal Medicine
DX: M79.5 Residual foreign body in soft tissue (principal)
CPT/HCPCS: 99213

== ENCOUNTER 2022-10-05 16:02 | Outpatient (REF) | payer OTHER, SELFPAY ==
--- NOTE | ~2022-10-05 | XR_ITS ---
EXAMINATION: XR HAND, RIGHT CLINICAL INFORMATION: Rule out residual foreign body in the soft tissues. COMPARISON: None available. TECHNIQUE: PA, lateral, and oblique views of the right hand. FINDINGS: There is no acute fracture or dislocation. The joint spaces are unremarkable. The carpal bones are normally aligned. The distal radius and ulna are intact. Mild soft tissue swelling is seen. No radiopaque foreign body. XR/XR hand RT min 3V IMPRESSION: Mild soft tissue swelling without acute underlying osseous abnormality. No radiopaque foreign body.
== END 2022-10-05 16:03 | disposition home or self-care (01) ==
LOC: HO.HMGCX 16:02
PROVIDERS: PCP Nurse Practitioner Family; Visit Provider Internal Medicine
DX: M79.5 Residual foreign body in soft tissue (principal)
CPT/HCPCS: 73130

== ENCOUNTER 2022-11-24 11:04 | Outpatient (REF) | payer OTHER, SELFPAY ==
[2022-11-24 13:25] LABS: MANUAL DIFF FLAG NO
[2022-11-24 13:39] LABS: Basophils Percent Auto 0.6 % (0-2); Eosinophils Absolute Auto 0.1 X10*3/uL (0.0-0.4); Eosinophils Percent Auto 1.5 % (0-4); Hematocrit 50.8 % (42.0-52.0); Hemoglobin 15.7 g/dl (14.0-18.0); Imm Gran Abs Auto 0.05 X10*3/uL (0.00-0.03); Imm Gran Pct Auto 0.7 % (0.0-0.4); Lymphocytes Absolute Auto 2.3 X10*3/uL (1.2-4.9); Lymphocytes Percent Auto 33.7 % (20-40); Mean Corpuscular HGB Conc 30.9 g/dl (31.0-36.0); Mean Corpuscular Hemoglobin 26.8 pg (27.0-33.0); Mean Corpuscular Volume 86.8 fL (80.0-98.0); Mean Platelet Volume 9.8 fL (9.4-12.4); Monocytes Absolute Auto 0.6 X10*3/uL (0.1-1.2); Monocytes Percent Auto 9.4 % (2-11); Neutrophils Absolute Auto 3.7 x10*3/uL (2.0-8.3); Neutrophils Percent Auto 54.1 % (45-73); Platelet Count 206 X10*3/uL (160-400); Red Blood Count 5.85 X10*6/uL (4.60-5.80); Red Cell Distribution Width 17.8 % (11.0-16.0); White Blood Count 6.8 X10*3/uL (4.8-10.8)
[2022-11-24 13:59] LABS: Alanine Aminotransferase 16 U/L (0-40); Albumin Level 3.8 g/dL (3.5-5.0); Alkaline Phosphatase 38 U/L (39-117); Anion Gap 14 (12-20); Aspartate Amino Transferase 18 U/L (5-37); Bilirubin Total 0.4 mg/dL (0.0-1.0); Blood Urea Nitrogen 19 mg/dL (9-16); Calcium 8.9 mg/dL (8.4-10.2); Carbon Dioxide 27 mmol/L (22-29); Chloride 106 mmol/L (96-108); Cholesterol 171 mg/dL (<200); Estimated Glomerular Filt Rate > 60; Glucose Fasting 95 mg/dL (60-99); HDL Cholesterol 33 mg/dL (>40); LDL Cholesterol Calculated 105 mg/dL (<100); Potassium 4.1 mmol/L (3.3-5.1); Sodium 143 mmol/L (135-145); Total Protein 7.2 g/dL (6.5-8.0); Triglycerides 166 mg/dL (<150)
[2022-11-24 14:04] LABS: Vitamin D 25-OH Total 25.6 ng/mL (>30)
[2022-11-24 14:19] LABS: Folate 4.5 ng/mL (> or = 4.0); Vitamin B12 365 pg/mL (200-900)
== END 2022-11-24 11:05 | disposition home or self-care (01) ==
LOC: HO.HMGCX 11:04
PROVIDERS: PCP Nurse Practitioner Family; Visit Provider Nurse Practitioner Family
DX: M54.9 Dorsalgia, unspecified (principal); M25.512 Pain in left shoulder; I10 Essential (primary) hypertension
CPT/HCPCS: 36415; 72072; 72110; 73030; 80053; 80061; 82306; 82607; 82746; 84443; 85025

== ENCOUNTER 2022-12-01 16:14 | Outpatient (AMB) | payer OTHER, SELFPAY ==
[2022-12-01 16:16] VITALS: BP 140/102; PULSE 67; O2SAT 96; BMI 49.9
--- NOTE | 2022-12-01 16:16 | MHC.PC.OV ---
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: No Allergies No Known Allergies Allergy (Verified 12/01/22 16:30) Medication List - Last Reconciled 12/01/22 by YAMIL Block amlodipine 5 mg PO DAILY 90 days cholecalciferol (vitamin D3) 25 mcg PO DAILY diphenhydramine HCl (Benadryl Allergy) 50 mg PO BEDTIME PRN Tobacco use date assessed: 12/01/22 Dental Screening Dental Screen Date: 12/01/22 Did you have a dental visit in the last 12 months?: Yes Did you have a dental problem in the last 6 months where you did not have access to dental care?: No Was dental information given to patient?: Patient has dentist HPI pe HPI Details Patient is a 57-year-old male who presents today for physical exam. Medical history significant for back pain-has order for physical therapy-was not seen-will [id number] follows by [place] [facility], left shoulder pain-will follow-up on PT referral, insomnia, low vitamin-D level, morbid obesity, hypertension. Today we discussed patient's need for colon cancer screening, patient has declined colonoscopy or a Cologuard-he reports he will think about this screening-denies changes in bowels-denies blood in stool. Smoked for 35 years 1.5ppd, quit 2013-declined referral for low-dose chest CT scan. We also discussed patient's need for prostate cancer screening. Reports eye exam long time ago, he will call for an eye exam. Denies shortness of breath or chest pain. Recent blood work results reviewed with the patient. [facility] Medical History (Updated 12/01/22 @ 17:10 by YAMIL Block) Encounter to establish care Foreign body (FB) in soft tissue HTN (hypertension) No pertinent past medical history Cellulitis Surgical History No pertinent past surgical history Family History Other No family history of coronary artery disease Social History Alcohol intake: current Patient Tobacco Use Status: Former Tobacco user Cigarette Packs Per Day: 3 Substance Use Type: Marijuana service: No Current occupational status: other Cognitive needs: No Hearing needs: No Vision needs: No Questionnaire PHQ-9 Over the last 2 weeks, how often have you been bothered by any of the following problems? 1. Little interest or pleasure in doing things: not at all 2. Feeling down, depressed, or hopeless: not at all 3. Trouble falling or staying asleep, or sleeping too much: not at all 4. Feeling tired or having little energy: not at all 5. Poor appetite or overeating: not at all 6. Feeling bad about yourself - or that you are a failure or have let yourself or your family down: not at all 7. Trouble concentrating on things, such as reading the newspaper or watching television: not at all 8. Moving or speaking so slowly that other people could have noticed. Or the opposite - being so fidgety or restless that you have been moving around a lot more than usual: not at all 9. Thoughts that you would be better off or of hurting yourself in some way: not at all Total score: 0 Depression Screening Interpretation: Negative Depression Screening Done: Yes 92458 - PHQ-9 Billing: Yes Source: Developed by Drs. Jeffrey Menjivar, Heatehr Coulter, Torres Diaz and colleagues, with an educational channing from [employer]. Thrive Questionnaire Date Thrive assessed: 09/22/22 I am a: Patient What is your living situation today?: I have a steady place to live Within the past 12 months, did the food you bought not last and you didn't have the money to get more?: Never true Within the past 12 months, did you worry whether your food would run out before you got money to buy more?: Never true Do you have trouble paying for medicines?: No Do you have trouble getting transportation to medical appointments?: No Do you have trouble paying your heating and electricity bill?: No Do you have trouble taking care of your child, family member or friend?: No Do you have trouble with day-to-day activities such as bathing, preparing meals, shopping, managing finances, etc.?: No Are you currently unemployed and looking for a job?: No Are you interested in more education?: No Currently or been in a relationship where the following occur: no concerns reported AUDIT C Alcohol Use Questionnaire (AUDIT-C) 1. How often do you have a drink containing alcohol?: 2-3 times a week 2. How many drinks containing alcohol do you have on a typical day when you are drinking?: 1 or 2 3. How often do you have six or more drinks on one occasion?: Never Total Score: 3 Score Reviewed/Action Taken: No NOBLE-7 AMB Questionnaire NOBLE-7 Date NOBLE - 7 assessed: 09/22/22 Feeling nervous, anxious, or on edge: 1 = Several days Not being able to stop or control worryin = Not at all Worrying too much about different things: 0 = Not at all Trouble relaxin = Not at all Being so restless that it is hard to sit still: 0 = Not at all Becoming easily annoyed or irritable: 0 = Not at all Feeling afraid as if something awful might happen: 0 = Not at all Total NOBLE-7 score (0-4 normal; 5-9 mild; 10-14 moderate; 15-21 severe): 1 Source: Developed by Drs. Jeffrey Menjivar, Heather Coulter, Torres Diaz and colleagues, with an educational channing from [employer]. NOBLE-7 Assessment Billing NOBLE-7 Assessment Tool: NOBLE-7 Assessment 72619 Review of Systems Const Denies body aches, Denies chills, Denies fever(s) and Denies headache(s) Eyes Denies change in vision ENT Denies dizziness, Denies otalgia, Denies headache(s), Denies nasal discharge, Denies sinus pain and Denies sore throat Card Denies chest pain, Denies edema, Denies lightheadedness, Denies dyspnea and Reports dyspnea on exertion (Intermittent) Resp Denies cough, Denies dyspnea, Reports dyspnea on exertion (Intermittent) and Denies wheezing GI Denies constipation, Denies diarrhea, Denies nausea and Denies vomiting Denies dysuria Musc Reports back pain, Denies myalgias and Reports arthralgias Skin/Breast Denies rash Neuro Denies dizziness and Denies headache(s) Aller/Immun Denies wheezing Physical exam (Primary Care) Vital Signs: Last Vital Signs Pulse 67 12/01/22 16:16 BP 140/102 H 12/01/22 16:16 Pulse Ox 96 12/01/22 16:16 Oxygen Delivery Method Room Air 12/01/22 16:16 BMI result Body Mass Index 49.9 Tobacco/Smoking Status: Tobacco use Status Tobacco use date assessed 12/01/22 12/01/22 16:22 Patient Tobacco Use Status Former Tobacco user 12/01/22 16:22 PHQ-9: PHQ-9 Score PHQ-9: Total score 0 12/01/22 16:22 Depression Screening Interpretation: Negative Thrive Assessment: Date of Thrive Assessment Date Thrive assessed 09/22/22 12/01/22 16:22 Currently or been in a relationship where the following occur: no concerns reported Const General: cooperative and no acute distress Orientation/consciousness: patient oriented x3 HENMT Head: Yes normocephalic and Yes atraumatic Ears: TM's normal bilaterally Face and sinus: Yes sinuses nontender Mouth: oropharynx normal and moist mucous membranes Throat: Yes posterior oropharynx normal Eyes General: appearance normal, both eyes and all related structures Pupils: Equal, round and reactive pupils present EOM: EOMs intact bilaterally Neck Neck: Yes normal visual inspection, Yes full ROM and Yes no lymphadenopathy Thyroid: Thyroid normal Resp Effort & Inspection: normal respiratory effort and able to speak in complete sentences Auscultation: clear to auscultation bilaterally, no crackles, no rales, no rhonchi and no wheezes Cardio Rate: regular rate Rhythm: regular rhythm Heart sounds: S1 normal heart sound present, S2 normal heart sound present and no murmurs GI Palpation (GI): Soft to palpation, not firm, nontender, no guarding, not rigid and no hepatosplenomegaly Auscultation: normal bowel sounds General: No CVA tenderness Back/Spine/Pelvis Back: No CVA tenderness Skin General skin exam: no rashes or lesions noted Neuro General: patient oriented x3 Cranial nerves: Yes Equal, round and reactive pupils present Gait exam (Neuro): Normal gait present Extrem General: Yes full ROM and No edema Assessment and Plan Assessment & Plan (1) HTN (hypertension): Code(s): I10 - Essential (primary) hypertension Plan: Goal BP equal or less than 140/90 Blood pressure elevated in the office today, patient denies shortness of breath or chest pain, no headache Increase amlodipine to 10 mg daily Low-sodium diet and weight loss Signs and symptoms reviewed when to notify provider or go to the emergency department Patient is to monitor blood pressures at home couple times per week Follow-up with nurse in 2 weeks for BP recheck (2) Insomnia: Code(s): G47.00 - Insomnia, unspecified Plan: Reinforced sleep hygiene Continue Benadryl 50 mg at bedtime p.r.n. (3) Morbid obesity with BMI of 45.0-49.9, adult: Code(s): E66.01 - Morbid (severe) obesity due to excess calories; Z68.42 - Body mass index [BMI] 45.0-49.9, adult Plan: Healthy food choices and exercise as tolerated Patient has declined referral to weight management (4) Screening for prostate cancer: Code(s): Z12.5 - Encounter for screening for malignant neoplasm of prostate (5) Low vitamin D level: Code(s): R79.89 - Other specified abnormal findings of blood chemistry Plan: On vitamin-D 25 mcg daily (6) Colonoscopy refused: Code(s): Z53.20 - Procedure and treatment not carried out because of patient's decision for unspecified reasons (7) History of nicotine dependence: Comment: Smoked for 35 years 1.5 ppd, quit 2013-declined referral for low-dose chest CT scan. Code(s): Z87.891 - Personal history of nicotine dependence (8) Adult general medical exam: Code(s): Z00.00 - Encounter for general adult medical examination without abnormal findings (9) Hypertriglyceridemia: Code(s): E78.1 - Pure hyperglyceridemia Plan: Triglycerides 166, goal less than 150 Encouraged low-carbohydrate and low cholesterol diet Continue to monitor periodically Plan Follow-up in 4 months or sooner as needed Orders: Orders Lipid Panel 4 Months I10 - Essential (primary) hypertension Prostate Specific Antigen Today Z12.5 - Encounter for screening for malignant neoplasm of prostate Comprehensive [place]. Panel Fast 4 Months I10 - Essential (primary) hypertension Complete Blood Count Auto Diff 4 Months I10 - Essential (primary) hypertension Medications: New blood pressure test kit-large As directed 1 ea 0RF I10 - Essential (primary) hypertension amlodipine 10 mg PO DAILY 90 tabs 1RF I10 - Essential (primary) hypertension Discontinued amlodipine Discontinued Reason: Doctor's Order 5 mg PO DAILY 90 days 90 tabs 1RF I10 - Essential (primary) hypertension Coding Level of Care Code Est Pt Prev Care 40-64y(98037) Diagnoses HTN (hypertension) I10 Insomnia G47.00 Morbid obesity with BMI of 45.0-49.9, adult E66.01; Z68.42 Screening for prostate cancer Z12.5 Low vitamin D level R79.89 Colonoscopy refused Z53.20 History of nicotine dependence Z87.891 Adult general medical exam Z00.00 Hypertriglyceridemia E78.1 Additional Codes NOBLE-7 Assessment Billing - NOBLE-7 Assessment Tool: NOBLE-7 Assessment 90710 ([id number])
[2022-12-01 16:48] VITALS: BP 158/96
== END 2022-12-01 17:01 | disposition home or self-care (01) ==
PROVIDERS: PCP Nurse Practitioner Family; Visit Provider Nurse Practitioner Family
DX: Z00.00 Encounter for general adult medical examination without abnormal findings (principal); E66.01 Morbid (severe) obesity due to excess calories; Z68.42 Body mass index [BMI] 45.0-49.9, adult; I10 Essential (primary) hypertension; G47.00 Insomnia, unspecified; Z12.5 Encounter for screening for malignant neoplasm of prostate; R79.89 Other specified abnormal findings of blood chemistry; Z53.20 Procedure and treatment not carried out because of patient's decision for unspecified reasons; Z87.891 Personal history of nicotine dependence; E78.1 Pure hyperglyceridemia
CPT/HCPCS: 99396

== ENCOUNTER 2022-12-16 13:44 | Outpatient (AMB) | payer OTHER, SELFPAY ==
--- NOTE | 2022-12-16 13:53 | A.OFFVIS_ITS ---
Intake Vital Signs 12/16/22 13:54 12/16/22 14:12 Height 5 ft 10 in Weight 348 lb BMI 49.9 BP 180/87 H 157/78 H Blood Pressure Location Lt brachial Rt brachial Position Sitting Sitting Respiration 18 Pulse 101 H Pulse Source Pulse Oximeter Pulse Oximetry (%) 96 Oxygen Delivery Method Room Air Intake Visit Reasons: FOLLOW UP/XRAY RESULTS Allergies No Known Allergies Allergy (Verified 12/16/22 13:53) HPI HPI Comments History of Present Illness Details Lion presents back to the office today for follow up left shoulder and lower back pain. He reports with the colder weather starting his left shoulder has been more painful. He has been taking tylenol which provides relief. He is requesting a prescription for Tylenol Arthritis. He was not able to get lidocaine patches approved by his insurance after last visit. Would like to try alternative. Pain today is rated as 2/10. Recent xrays reviewed with patient today, results as per below. Lion is a very pleasant 56-year-old male presents to the office today for evaluation and management of his left shoulder and chronic lower back pain. 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 Today he reports that he has 0/10 pain, states he lifted something 2 days ago and has back was severe. He took Tylenol and the pain resolved. He attempted physical therapy 3 weeks ago at [facility] but it did not help. He has not tried chiropractor, acupuncture, massage or injections. He states that he overused NSAIDs in the past, cannot longer take them due to kidney injury. He does not want to try muscle relaxers or any other pain medications. Patient recently established care with new primary care provider, she has ordered lab work and x-rays none of which have been completed yet. In terms of muscle damage condition is described as aching and stabbing. Pain is negatively impacting his enjoyment of life, general activity, sleep and walking. Patient endorses occasional alcohol use, history of 2 pack a day smoker quit in 2013, denies current use of illicit substances. Patient denies implantable devices, pacemaker or defibrillator [facility] Medical History (Updated 12/16/22 @ 14:47 by Jesika Penny, STANDARDS ENGINEER, RHEUMATOLOGY SPECIALIST) Encounter to establish care Foreign body (FB) in soft tissue HTN (hypertension) No pertinent past medical history Cellulitis Surgical History No pertinent past surgical history Family History Other No family history of coronary artery disease Social History Alcohol intake: current Patient Tobacco Use Status: Former Tobacco user Cigarette Packs Per Day: 3 Substance Use Type: Marijuana service: No Current occupational status: other Cognitive needs: No Hearing needs: No Vision needs: No Review of Systems Const All systems reviewed & are unremarkable except as noted in HPI and below Physical Exam Vital Signs: Last Vital Signs Pulse 101 H 12/16/22 13:54 Resp 18 12/16/22 13:54 BP 157/78 H 12/16/22 14:12 Pulse Ox 96 12/16/22 13:54 Oxygen Delivery Method Room Air 12/16/22 13:54 BMI result Body Mass Index 49.9 General: awake, alert, oriented. Answers questions appropriately. Fully engaged in examination. Skin: warm, dry, intact HEENT: Normocephalic. Hearing intact. Cardiac: External chest normal in appearance. Respiratory: No cough, audible wheezing or stridor. Abdomen: without gross distension. Neurological: Oriented to person, place, time and situation. Thought process intact. Psychiatric: Appropriate mood and affect. Good judgment and insight. Back/Spine/Pelvis Other: Able to stand on bilateral tiptoes and bilateral heels.? Able to transition from sit to stand unassisted. Ambulates with bilaterally normal heel strike and toe off Extrem Right upper extremity: shoulder/upper arm Details: tenderness Location: of the A-C joint and normal ROM Results Reviewed Results Reviewed: 11/24/22 XR/XR shoulder LT min 2V FINDINGS: No acute fracture or dislocation. Small acromioclavicular and tiny glenohumeral marginal osteophytes. No osseous erosion. No abnormal soft tissue calcification. IMPRESSION: Mild acromioclavicular and minimal glenohumeral osteoarthritis. XR/XR lumbar spine 4V min FINDINGS: THORACIC SPINE: Dextrocurvature of the thoracic spine centered at the level of the T8 vertebral body. Exaggeration of the thoracic kyphosis. Multilevel loss of intervertebral disc height with endplate osteophytes. No acute fracture or dislocation. The visualized lungs are clear. LUMBAR SPINE: Normal vertebral body alignment. The lumbar lordosis is maintained. No acute fracture or subluxation. No loss of vertebral body height. Mild multilevel loss of intervertebral disc with small endplate osteophytes. Mild multilevel bilateral facet arthropathy. No concerning lytic or blastic osseous lesion. Atherosclerotic calcifications. IMPRESSION: THORACIC SPINE: Dextrocurvature of the thoracic spine centered at the level of the T8 vertebral body. Exaggeration of the thoracic kyphosis. Moderate multilevel degenerative disc disease. LUMBAR SPINE: Mild multilevel degenerative disc disease and bilateral facet arthropathy. Assessment & Plan Assessment & Plan (1) Left shoulder pain: Code(s): M25.512 - Pain in left shoulder (2) Lumbar spondylosis: Code(s): M47.816 - Spondylosis without myelopathy or radiculopathy, lumbar region (3) Glenohumeral arthritis: Code(s): M19.019 - Primary osteoarthritis, unspecified shoulder (4) Acromioclavicular joint arthritis: Code(s): M19.019 - Primary osteoarthritis, unspecified shoulder Plan Lion is a very pleasant 57 year old male who presented back to the office today for follow up left shoulder and lower back pain. Today he reported pain in the left shoulder has been worse since cold weather started, his back pain has been well controlled. Arthritis pain relief 650mg po Q8H as needed for pain sent to pharmacy [place] topical patches sent to pharmacy, patient instructed on use. discussed options for treatment including intra-articular steroid injection for left shoulder pain but patient would like to hold on injections at this time. He would like to try to manage with arthritis medication first. All questions and concerns have been answered and patient agrees with the plan. Patient will call to schedule an appointment if pain does not respond to medication or for any worsening pain. Medications: New acetaminophen ER (Arthritis Pain Relief (acetaminophen) ER) 650 mg PO Q8H PRN 60 tabs 1RF pain capsaicin 0.025% (Salonpas-Hot) do not leave patch on for more than 8 hrs 1 patch topical TID PRN 15 ea 0RF pain Coding Level of Care Code Est Pt Level 3 (44872) Diagnoses Left shoulder pain M25.512 Lumbar spondylosis M47.816 Glenohumeral arthritis M19.019 Acromioclavicular joint arthritis M19.019
[2022-12-16 13:54] VITALS: BP 180/87; PULSE 101; RESP 18; O2SAT 96; BMI 49.9
[2022-12-16 14:12] VITALS: BP 157/78
== END 2022-12-16 14:37 | disposition home or self-care (01) ==
PROVIDERS: PCP Nurse Practitioner Family; Visit Provider Registered Nurse Emergency
DX: M25.512 Pain in left shoulder (principal); M47.816 Spondylosis without myelopathy or radiculopathy, lumbar region; M19.019 Primary osteoarthritis, unspecified shoulder
CPT/HCPCS: 99213

== ENCOUNTER → 2022-12-16 13:44 | Outpatient (BNVA) | payer OTHER, SELFPAY | PROVIDERS: PCP Nurse Practitioner Family; Visit Provider Registered Nurse Emergency | DX: M25.512 Pain in left shoulder (principal); M47.816 Spondylosis without myelopathy or radiculopathy, lumbar region; M19.019 Primary osteoarthritis, unspecified shoulder | CPT/HCPCS: 99212 ==

== ENCOUNTER 2023-01-21 15:32 | Outpatient (AMB) | payer OTHER, SELFPAY ==
--- NOTE | 2023-01-21 15:26 | MHC.PC.OV ---
Intake Visit Reasons: Coughing up phlegm Intake Note: Telehealth session with a patient experiencing a persistent cough for the past four days, reporting worsening symptoms. Additionally, the patient has developed headaches, and diarrhea began this morning. 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 This is the 1st time evaluating this is a 7-year-old male with a past medical history of hypertension, obesity, and a smoker arthritis. Reports he has been suffering with a cough over the last week. He reports the cough has become more productive. He does report noting some wheezing at times. He does reports feeling somewhat feverish at times. He denies any sick contacts. He does report he lives with his mother whom also has a small cough. Has not tested himself for flu RSV or COVID at all [facility] Medical History Encounter to establish care Foreign body (FB) in soft tissue HTN (hypertension) No pertinent past medical history Cellulitis Surgical History No pertinent past surgical history Family History Other No family history of coronary artery disease Social History Housing: House Alcohol intake: current Patient Tobacco Use Status: Former Tobacco user Cigarette Packs Per Day: 3 e-Cigarette/Vaping Use: Never Used Substance Use Type: Marijuana service: No Current occupational status: other Cognitive needs: No Hearing needs: No Vision needs: No Questionnaire Thrive Questionnaire Date Thrive assessed: 09/22/22 NOBLE-7 AMB Questionnaire NOBLE-7 Date NOBLE - 7 assessed: 09/22/22 Source: Developed by Drs. Jeffrey Menjivar, Heather Coulter, Torres Diaz and colleagues, with an educational channing from [employer]. Review of Systems Const Denies headache(s) Eyes Denies loss of vision ENT Denies vertigo, Denies dizziness, Denies headache(s) and Denies sore throat Card Denies chest pain, Denies leg edema and Denies lightheadedness Resp Reports change in phlegm color, Reports cough, Denies hemoptysis and Reports wheezing GI Denies abdominal pain, Denies melena, Denies constipation, Denies diarrhea and Denies vomiting Denies dysuria, Denies urinary frequency and Denies urinary urgency Musc Denies arthralgias, Denies joint swelling, Denies numbness and Denies tingling Neuro Denies behavioral changes, Denies vertigo, Denies dizziness, Denies headache(s), Denies loss of vision, Denies memory loss, Denies numbness and Denies tingling Psych Denies anxiety, Denies behavioral changes, Denies depression, Denies memory loss and Denies panic attacks Chepe/Lymph Denies easy bleeding and Denies easy bruising Aller/Immun Reports wheezing Physical exam (Primary Care) Tobacco/Smoking Status: Tobacco use Status Tobacco use date assessed 12/01/22 01/21/23 15:31 Patient Tobacco Use Status Former Tobacco user 01/21/23 15:31 e-Cigarette/Vaping Use Never Used 01/21/23 15:31 Thrive Assessment: Date of Thrive Assessment Date Thrive assessed 09/22/22 01/21/23 15:31 Telehealth Telehealth Location of provider rendering services: practice address 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 Likely viral though that tested himself for COVID RSV. Reports his symptoms are getting worse and does have fever from time to time. Will supply patient with an antibiotic, prednisone for his wheeze and cough suppressant tablet for nighttime. Advised to do home testing for COVID Medications: New prednisone 20 mg PO DAILY 7 days 7 tabs 0RF J40 - Bronchitis, not specified as acute or chronic amoxicillin-pot clavulanate 875-125 mg 1 tab PO BID 7 days 14 tabs 0RF J40 - Bronchitis, not specified as acute or chronic benzonatate 200 mg PO BEDTIME 7 days 7 caps 0RF J40 - Bronchitis, not specified as acute or chronic, R05.9 - Cough, unspecified Coding Level of Care Code Tele Est Pt Level 3 (22180) Diagnoses Bronchitis J40
== END 2023-01-21 16:38 | disposition home or self-care (01) ==
LOC: HO.HMGH 15:32
PROVIDERS: PCP Nurse Practitioner Family; Visit Provider Physician Assistant
DX: J40 Bronchitis, not specified as acute or chronic (principal)
CPT/HCPCS: 99213

== ENCOUNTER 2023-01-25 15:48 | Outpatient (REF) | payer OTHER, SELFPAY ==
--- NOTE | ~2023-01-25 | XR_ITS ---
EXAMINATION: XR CHEST CLINICAL INFORMATION: Bronchitis. COMPARISON: None available. TECHNIQUE: 2 views of the chest were obtained. FINDINGS: The lungs are somewhat expanded and clear of acute pneumonic process. There are prominent bronchovascular markings likely related to reactive airway disease or bronchitis. Heart size and pulmonary vascularity is normal. There is mild dextroscoliosis mid to lower dorsal spine. XR/XR chest 2V IMPRESSION: 1. No acute pneumonic process seen. 2. Prominent bronchovascular markings likely reactive airway disease or bronchitis.
== END 2023-01-25 15:49 | disposition home or self-care (01) ==
LOC: HO.HMGCX 15:48
PROVIDERS: PCP Nurse Practitioner Family; Visit Provider Physician Assistant
DX: J40 Bronchitis, not specified as acute or chronic (principal)
CPT/HCPCS: 71046

== ENCOUNTER 2023-04-28 15:35 | Outpatient (AMB) | payer OTHER, SELFPAY ==
[2023-04-28 15:38] VITALS: BP 136/84; BMI 50.1
--- NOTE | 2023-04-28 15:38 | A.OFFPC_ITS ---
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: No Accompanied by: Self / Same As Patient Allergies No Known Allergies Allergy (Verified 04/28/23 16:02) Medication List - Last Reconciled 04/28/23 by Sophie Lozano MD acetaminophen ER (Arthritis Pain Relief (acetaminophen) ER) 650 mg PO Q8H PRN albuterol sulfate 90 mcg/actuation 1 inh inhalation QID PRN 30 days amlodipine 10 mg PO DAILY blood pressure kit-extra large As directed capsaicin 0.025% (Salonpas-Hot) 1 patch topical TID PRN cholecalciferol (vitamin D3) 25 mcg PO DAILY diphenhydramine HCl (Benadryl Allergy) 50 mg PO BEDTIME PRN Tobacco use date assessed: 04/28/23 Dental Screening Dental Screen Date: 04/28/23 Did you have a dental visit in the last 12 months?: No Did you have a dental problem in the last 6 months where you did not have access to dental care?: No Was dental information given to patient?: Patient has dentist HPI HPI Comments History of Present Illness Details This is a 57-year-old male with hypertension, lumbar spondylosis, obesity and low vitamin-D that comes today to establish care. Blood pressure stable. Low back pain well control with patch. He is morbidly obese with a BMI of 50.1 and should do diet and exercise. On vitamin-D supplements for his low vitamin-D. Denies any chest pain or shortness of breath. [facility] Medical History (Updated 04/28/23 @ 17:18 by Sophie Lozano MD) Morbid obesity with BMI of 45.0-49.9, adult Encounter to establish care Foreign body (FB) in soft tissue HTN (hypertension) No pertinent past medical history Cellulitis Surgical History (Updated 04/28/23 @ 15:45 by NORM Farrell) History of wisdom tooth extraction Family History (Updated 04/28/23 @ 15:46 by NORM Farrell) Other No family history of coronary artery disease Social History Housing: House Alcohol intake: current Alcohol intake frequency: a few times a week Alcohol type: beer, hard liquor and other Patient Tobacco Use Status: Former Tobacco user Cigarette Packs Per Day: 3 e-Cigarette/Vaping Use: Never Used Second Hand Smoke Exposure: No Substance Use Type: Marijuana service: No Current occupational status: other Cognitive needs: No Hearing needs: No Vision needs: Yes Questionnaire PHQ-9 Over the last 2 weeks, how often have you been bothered by any of the following problems? 1. Little interest or pleasure in doing things: not at all 2. Feeling down, depressed, or hopeless: several days 3. Trouble falling or staying asleep, or sleeping too much: several days 4. Feeling tired or having little energy: not at all 5. Poor appetite or overeating: not at all 6. Feeling bad about yourself - or that you are a failure or have let yourself or your family down: not at all 7. Trouble concentrating on things, such as reading the newspaper or watching television: not at all 8. Moving or speaking so slowly that other people could have noticed. Or the opposite - being so fidgety or restless that you have been moving around a lot more than usual: not at all 9. Thoughts that you would be better off or of hurting yourself in some way: not at all Total score: 2 Depression Screening Interpretation: Negative Depression Screening Done: Yes [id number] - PHQ-9 Billing: Yes Source: Developed by Drs. Jeffrey Menjivar, Heather Coulter, Torres Diaz and colleagues, with an educational channing from [employer]. Thrive Questionnaire Date Thrive assessed: 09/22/22 NOBLE-7 AMB Questionnaire NOBLE-7 Date NOBLE - 7 assessed: 04/28/23 Feeling nervous, anxious, or on edge: 1 = Several days Not being able to stop or control worryin = Not at all Worrying too much about different things: 1 = Several days Trouble relaxin = Not at all Being so restless that it is hard to sit still: 0 = Not at all Becoming easily annoyed or irritable: 0 = Not at all Feeling afraid as if something awful might happen: 0 = Not at all Total NOBLE-7 score (0-4 normal; 5-9 mild; 10-14 moderate; 15-21 severe): 2 Source: Developed by Drs. Jeffrey Menjivar, Heather Coulter, Torres Diaz and colleagues, with an educational channing from [employer]. NOBLE-7 Assessment Billing NOBLE-7 Assessment Tool: NOBLE-7 Assessment 40690 Review of Systems Const All systems reviewed & are unremarkable except as noted in HPI and below Eyes Reports no additional complaints, Denies change in vision and Denies other visual disturbances Card Denies chest pain at rest, Denies chest pain with activity, Denies edema, Denies irregular heart rhythm, Denies claudication, Denies dyspnea, Denies dyspnea on exertion, Denies orthopnea, Denies paroxysmal nocturnal dyspnea and Denies slow heart rate Resp Denies cough, Denies dyspnea and Denies dyspnea on exertion GI Denies abdominal pain, Denies change in bowel habits, Denies excessive flatus, Denies nausea and Denies vomiting Denies urinary hesitancy, Denies urinary incontinence and Denies urinary urgency Musc Denies abnormal gait, Denies atrophy, Denies deformity and Denies limited range of motion Skin/Breast Denies bleeding lesions, Denies changing lesions and Denies rash Neuro Denies abnormal gait and Denies lack of coordination Physical exam (Primary Care) Vital Signs: Last Vital Signs BP 136/84 04/28/23 15:38 BMI result Body Mass Index 50.1 Tobacco/Smoking Status: Tobacco use Status Tobacco use date assessed 04/28/23 04/28/23 15:54 Patient Tobacco Use Status Former Tobacco user 04/28/23 15:54 e-Cigarette/Vaping Use Never Used 04/28/23 15:54 PHQ-9: PHQ-9 Score PHQ-9: Total score 2 04/28/23 16:13 Depression Screening Interpretation: Negative Thrive Assessment: Date of Thrive Assessment Date Thrive assessed 09/22/22 04/28/23 15:54 Eyes General: appearance normal, both eyes and all related structures Eyelids: Yes eyelids normal Conjunctivae: conjunctivae normal Neck Neck: Yes normal visual inspection and Yes supple Resp Effort & Inspection: normal respiratory effort Auscultation: clear to auscultation bilaterally Cardio Jugular venous distension: no JVD Rate: regular rate Rhythm: regular rhythm Heart sounds: S1 normal heart sound present and S2 normal heart sound present Extrem General: Yes full ROM Assessment and Plan Assessment & Plan (1) HTN (hypertension): Code(s): I10 - Essential (primary) hypertension Plan: Continue amlodipine. Blood pressure goal is equal or less than 130/80. (2) Low vitamin D level: Code(s): R79.89 - Other specified abnormal findings of blood chemistry Plan: Continue vitamin-D supplements. (3) Lumbar spondylosis: Code(s): M47.816 - Spondylosis without myelopathy or radiculopathy, lumbar region Plan: Continue capsaicin patch as needed. (4) Obesity, morbid, BMI 50 or higher: Code(s): E66.01 - Morbid (severe) obesity due to excess calories Plan: Start diet and exercise. BMI goal is less than 30. Orders: Orders Vitamin D 25-OH Total 6 Months E55.9 - Vitamin D deficiency, unspecified Lipid Panel 6 Months E78.5 - Hyperlipidemia, unspecified Comprehensive [place]. Panel Fast 6 Months I10 - Essential (primary) hypertension Medications: New Ventolin HFA 90 mcg/actuation (albuterol sulfate) 2 puffs inhalation Q6H 30 days PRN 8 grams 6RF shortness of breath or wheezing NS Changed From diphenhydramine HCl (Benadryl Allergy) 50 mg PO BEDTIME PRN To diphenhydramine HCl (Benadryl Allergy) 50 mg PO BEDTIME 90 days PRN 90 tabs 1RF allergic reaction Refilled amlodipine 10 mg PO DAILY 90 tabs 1RF I10 - Essential (primary) hypertension cholecalciferol (vitamin D3) 25 mcg PO DAILY 90 tabs 1RF R79.89 - Other specified abnormal findings of blood chemistry Coding Level of Care Code Est Pt Level 4 (84475) Diagnoses HTN (hypertension) I10 Low vitamin D level R79.89 Lumbar spondylosis M47.816 Obesity, morbid, BMI 50 or higher E66.01 Additional Codes NOBLE-7 Assessment Billing - NOBLE-7 Assessment Tool: NOBLE-7 Assessment 04794 ([id number]) Time Spent (min) 24
== END 2023-04-28 16:14 | disposition home or self-care (01) ==
PROVIDERS: PCP Internal Medicine; Visit Provider Internal Medicine
DX: I10 Essential (primary) hypertension (principal); E66.01 Morbid (severe) obesity due to excess calories; Z68.43 Body mass index [BMI] 50.0-59.9, adult; Z87.891 Personal history of nicotine dependence; R79.89 Other specified abnormal findings of blood chemistry; M47.816 Spondylosis without myelopathy or radiculopathy, lumbar region
CPT/HCPCS: 99214

== ENCOUNTER 2023-05-19 10:34 | Outpatient (AMB) | payer OTHER, SELFPAY ==
--- NOTE | 2023-05-19 10:57 | MHC.OFFWIV ---
Intake Vital Signs 05/19/23 11:02 Height 5 ft 10 in Weight 355 lb BMI 50.9 BP 152/84 H Blood Pressure Location Lt brachial Position Sitting Pulse 120 H Pulse Source Pulse Oximeter Temp 97.4 F Temp Source Oral Pulse Oximetry (%) 95 Oxygen Delivery Method Room Air Intake Visit Reasons: EP cough and [phone] Intake Note: Pt presents to the office today for c/o cough,congestion, and sinus pressure x3 days. Patient Tobacco Use Status: Former Tobacco user Allergies No Known Allergies Allergy (Verified 05/19/23 10:58) HPI HPI Comments History of Present Illness Details He presents to office with cough, congestion and facial pressure He said ongoing over 3 days He said + phlegm production with cough; yellow/brown mucus He has tried mucinex without relief Laying back makes post nasal drip worse He said no smoking since Feb 1999 [facility] Medical History Morbid obesity with BMI of 45.0-49.9, adult Encounter to establish care Foreign body (FB) in soft tissue HTN (hypertension) No pertinent past medical history Cellulitis Surgical History History of wisdom tooth extraction Family History Other No family history of coronary artery disease Social History Housing: House Alcohol intake: current Alcohol intake frequency: a few times a week Alcohol type: beer, hard liquor and other Patient Tobacco Use Status: Former Tobacco user Cigarette Packs Per Day: 3 e-Cigarette/Vaping Use: Never Used Second Hand Smoke Exposure: No Substance Use Type: Marijuana service: No Current occupational status: other Cognitive needs: No Hearing needs: No Vision needs: Yes Review of Systems Const Reports fatigue and Denies fever(s) ENT Denies dizziness, Denies otalgia and Reports nasal discharge Card Denies chest pain and Reports dyspnea Resp Reports change in phlegm color, Reports chest congestion, Reports cough, Reports dyspnea and Reports wheezing GI Denies abdominal pain Neuro Denies dizziness Endo Reports fatigue Aller/Immun Reports wheezing Physical Exam Vital Signs: Last Vital Signs Temp 97.4 F 05/19/23 11:02 Pulse 120 H 05/19/23 11:02 BP 152/84 H 05/19/23 11:02 Pulse Ox 95 05/19/23 11:02 Oxygen Delivery Method Room Air 05/19/23 11:02 BMI result Body Mass Index 50.9 General: Non-toxic, NAD. Speaking full sentences. Skin: Warm dry throughout Eye: EOMI, PERRL HENT: Airway patent. Uvula midline. No pharyngeal erythema or edema. No FURNACE BUILDER. Bilateral canals clear. TM non-erythematous, non-bulging. No TM perforation or hemotympanum noted. Respiratory: +tight with wheeze and rhonchi throughout. No rales at bases. No decreased sounds. Cardiac: Irregular rhythm Neurology: A/O. No aphasia or facial droop. Gait without abnormality Psych: Good mood and affect Assessment & Plan Assessment & Plan (1) Tachycardia: Code(s): R00.0 - Tachycardia, unspecified Plan: Patient seen and evaluated. During triage HR was 120 but on auscultation he sounded to be in an abnormal rhythm. I asked if he had hx of afib and he said no. No anticoagulation use EKG ordered (2) Acute bacterial bronchitis: Code(s): J20.8 - Acute bronchitis due to other specified organisms; B96.89 - Other specified bacterial agents as the cause of diseases classified elsewhere Plan: Pt refused to go to ER for Afib with RVR and insisted on being treated for just his cough and SOB Discussed with pt that I was not comfortable prescribing medicine with current new onset afib with RVR and that he needed to go to ER for tx of both We attempted to get chest xray to rule out PNA but they were on break for another hour. No crackles/rales on exam, symptoms ongoing only 3 days and pt afebrile. Low suspicion bacteria PNA at this time (3) New onset atrial fibrillation: Code(s): I48.91 - Unspecified atrial fibrillation Plan: Pt found to have new onset afib with rvr I spent over an hour sitting and discussing the risks of CO stroke and of not having this taken care of in the ED Pt initially refused and said he would be seen next week for it By the end of our discussion he is agreeable to go to [place] [facility] but not via ambulance He signed AMA because of not going immediately in ambulance for high risk of stroke and and safety. [place] [facility] expect called and i gave them the full background and story Pt is well aware that Afib new onset with RVR is a serious issue and could result in spontaneous due to CO, stroke etc He admitted that he was scared to go for medical tx and long discussion had with pt and he finally agreed. Orders: Orders XR chest 2V Today I48.91 - Unspecified atrial fibrillation Coding Level of Care Code Est Pt Level 5 (33983) Diagnoses Tachycardia R00.0 Acute bacterial bronchitis J20.8; B96.89 New onset atrial fibrillation I48.91
[2023-05-19 11:02] VITALS: BP 152/84; PULSE 120; TEMP 36.3; O2SAT 95; BMI 50.9
== END 2023-05-19 12:55 | disposition home or self-care (01) ==
PROVIDERS: PCP Internal Medicine; Visit Provider Physician Assistant
DX: R00.0 Tachycardia, unspecified (principal); I48.91 Unspecified atrial fibrillation; J20.8 Acute bronchitis due to other specified organisms; B96.89 Other specified bacterial agents as the cause of diseases classified elsewhere
CPT/HCPCS: 99215

== ENCOUNTER 2023-05-19 13:28 | Inpatient (IN) | payer OTHER, SELFPAY ==
--- NOTE | 2023-05-19 | ECG_ITS ---
Test Reason : sob Blood Pressure : / mmHG Vent. Rate : 137 BPM Atrial Rate : 000 BPM P-R Int : 000 ms QRS Dur : 080 ms QT Int : 292 ms P-R-T Axes : 000 104 036 degrees QTc Int : 440 ms Atrial fibrillation with rapid ventricular response Rightward axis Nonspecific ST and T wave abnormality Abnormal ECG No previous ECGs available Referred By: Generic ED Physician Electronically Signed By:Wilner Rice
--- NOTE | ~2023-05-19 | XR_ITS ---
EXAMINATION: XR CHEST CLINICAL INFORMATION: New onset atrial fibrillation COMPARISON: Chest radiograph from 01/25/2023 TECHNIQUE: 2 views of the chest were obtained. FINDINGS: Redemonstrated interstitial and bronchovascular markings. Bibasilar atelectasis. No pneumothorax. Trachea is midline. Cardiomediastinal silhouette is stable. Aorta demonstrates tortuosity with atherosclerotic calcifications. Exaggeration of the thoracic kyphosis with multilevel degenerative changes. XR/XR chest 2V IMPRESSION: 1. Redemonstrated interstitial and bronchovascular markings. 2. Bibasilar atelectasis.
[2023-05-19 13:54] VITALS: BP 159/94; PULSE 133; RESP 24; TEMP 36.8; O2SAT 97; BMI 50.2
[2023-05-19 14:09] LABS: MANUAL DIFF FLAG NO
[2023-05-19 14:19] LABS: Partial Thromboplastin Time 30.7 SEC (26.0-36.8)
[2023-05-19 14:20] LABS: Basophils Percent Auto 0.4 % (0-2); Eosinophils Percent Auto 0.4 % (0-4); Hematocrit 45.1 % (42.0-52.0); Hemoglobin 14.8 g/dl (14.0-18.0); Imm Gran Abs Auto 0.04 X10*3/uL (0.00-0.03); Imm Gran Pct Auto 0.5 % (0.0-0.4); Lymphocytes Absolute Auto 0.9 X10*3/uL (1.2-4.9); Lymphocytes Percent Auto 11.1 % (20-40); Mean Corpuscular HGB Conc 32.8 g/dl (31.0-36.0); Mean Corpuscular Hemoglobin 27.7 pg (27.0-33.0); Mean Corpuscular Volume 84.5 fL (80.0-98.0); Mean Platelet Volume 9.2 fL (9.4-12.4); Monocytes Absolute Auto 0.7 X10*3/uL (0.1-1.2); Monocytes Percent Auto 8.1 % (2-11); Neutrophils Absolute Auto 6.7 x10*3/uL (2.0-8.3); Neutrophils Percent Auto 79.5 % (45-73); Platelet Count 228 X10*3/uL (160-400); Red Blood Count 5.34 X10*6/uL (4.60-5.80); Red Cell Distribution Width 14.9 % (11.0-16.0); White Blood Count 8.4 X10*3/uL (4.8-10.8)
[2023-05-19 14:24] LABS: Alanine Aminotransferase 19 U/L (0-40); Albumin Level 4.3 g/dL (3.5-5.0); Alkaline Phosphatase 61 U/L (39-117); Anion Gap 13 (12-20); Aspartate Amino Transferase 13 U/L (5-37); Bilirubin Total 0.6 mg/dL (0.0-1.0); Blood Urea Nitrogen 10 mg/dL (9-16); Calcium 8.7 mg/dL (8.4-10.2); Carbon Dioxide 25 mmol/L (22-29); Chloride 105 mmol/L (96-108); Creatinine Clr Calc Pharmacy 114.2; Estimated Glomerular Filt Rate > 60; Glucose Random 129 mg/dL (60-115); Potassium 3.9 mmol/L (3.3-5.1); Sodium 139 mmol/L (135-145); Total Protein 7.8 g/dL (6.5-8.0)
[2023-05-19 14:30] LABS: B Type Natriuretic Peptide 16 pg/mL (<100)
[2023-05-19 14:34] LABS: Troponin-I High Sensitivity < 2.7 ng/L (<3.5-35.0)
--- NOTE | 2023-05-19 15:06 | ED_ITS ---
HPI - Arrhythmia/Palpitations General Chief Complaint: Arrhythmia/Palpitations Stated Complaint: SOB Sent By Dr Henry Time Seen by Provider: 05/19/23 15:03 Source: patient Mode of arrival: ambulatory Limitations: no limitations History of Present Illness HPI narrative: 57-year-old past medical history significant for leg laceration complicated with infection asthma morbid obesity who presents to emergency department via urgent care. Patient went to urgent care for cold symptoms. Patient was found to be in AFib with RVR. Patient denies ever having atrial fibrillation he states he was checked at 1 week ago and everything was normal. 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 I had to reassure the patient multiple times about my concerns with atrial fibrillation he does not know how long he has been in atrial fibrillation and he could have a large clot and his stroke risk is high. Related Data Home Medications Medication Instructions Recorded Confirmed guaifenesin 600 mg tablet, 600 mg PO BID 05/19/23 extended release 12 hr (Mucinex) Previous Rx's Medication Instructions Recorded acetaminophen 650 mg 650 mg PO Q8H PRN pain #60 tabs 12/16/22 tablet,extended release (Arthritis Pain Relief (acetaminophen) ER) capsaicin 0.025 % topical patch 1 patch topical TID PRN pain #15 ea 12/16/22 (Salonpas-Hot) blood pressure kit-extra large #1 ea 12/28/22 Ventolin HFA 90 mcg/actuation 2 puff inhalation Q6H PRN 04/28/23 aerosol inhaler (albuterol sulfate) shortness of breath or wheezing 30 days #8 grams amlodipine 10 mg tablet 10 mg PO DAILY #90 tabs 04/28/23 cholecalciferol (vitamin D3) 25 25 mcg PO DAILY #90 tabs 04/28/23 mcg (1,000 unit) tablet diphenhydramine HCl 50 mg tablet 50 mg PO BEDTIME PRN allergic 04/28/23 (Benadryl Allergy) reaction 90 days #90 tabs Allergies Allergy/AdvReac Type Severity Reaction Status Date / Time No Known Allergies Allergy Verified 05/19/23 13:54 Review of Systems 2 Review of Systems: Review of systems: General: Patient denies any fever chills recent illness or falls Musculoskeletal: Denies back pain or body aches or other injuries HEENT: denies headache, runny nose, ear pain Respiratory: denies shortness of breath, cough Cardiovascular: no chest pain or palpitations : denies dysuria, frequency Abdomen: no nausea vomiting denies abdominal pain Extremities: no swelling, no pain Skin: no diaphoresis Yes all other systems are reviewed and are negative PMFSH Past Medical History Medical History Morbid obesity with BMI of 45.0-49.9, adult Encounter to establish care Foreign body (FB) in soft tissue HTN (hypertension) No pertinent past medical history Cellulitis Surgical History History of wisdom tooth extraction Family History Family History Other No family history of coronary artery disease Social History Social History Housing: House Alcohol intake: current Alcohol intake frequency: a few times a week Alcohol type: beer, hard liquor and other Patient Tobacco Use Status: Former Tobacco user Cigarette Packs Per Day: 3 e-Cigarette/Vaping Use: Never Used Second Hand Smoke Exposure: No Substance Use Type: Marijuana Advance Directives: No service: No Current occupational status: other Cognitive needs: No Hearing needs: No Vision needs: Yes Physical Exam 2 Vital Signs: Vital Signs: Last Vital Signs Temp 98.3 F 05/19/23 13:54 Pulse 130 H 05/19/23 16:02 Resp 20 05/19/23 16:02 BP 146/71 H 05/19/23 16:02 Pulse Ox 93 05/19/23 16:02 O2 Del Method Room Air 05/19/23 16:02 BMI result Body Mass Index 50.2 Neurological exam: CN II- XII tested. Patient is alert and oriented to person place and time. Patient has no dysphagia or dysarthia, denies good vision in all four vision [place] no nystagmus on exam, good strength to upper and lower extremities with normal reflexes to brachioradialis, wrist, patella and achilles. Negative romberg, good finger to nose and heel to de [place] paz. General: Well-appearing well-nourished in no signs of distress HEENT: Normocephalic atraumatic Neck: No signs of JVD, no masses no tenderness or lymphadenopathy Cardiovascular: Irregularly irregular Respiratory: Clear to auscultation bilaterally Abdomen: Soft nontender no masses Extremities: Normal pedal pulses no signs of edema Skin: Dry warm no rashes Back: No tenderness full ROM Course Course Course Narrative: Heart rate still in the 120s after diltiazem bolus and oral dose I will start an IV drip of the patient to Medicine I did discuss the case with Dr. Rebollar who agrees with the plan I also spoke with Cardiology Medications Administered Generic Name Dose Route Start Last Admin Trade Name Freq PRN Reason Stop Dose Admin Heparin Sodium/Sodium Chloride 25,000 unit in 250 mls @ 0 mls/hr 05/19/23 15:30 05/19/23 15:35 Heparin Sodium,Porcine/1/2ns IVCONT 14 units/kg/hr .Q0M NASH 15.04 mls/hr Administration Protocol Per Protocol Discontinued Medications Generic Name Dose Route Start Last Admin Trade Name Freq PRN Reason Stop Dose Admin Diltiazem HCl 20 mg 05/19/23 15:04 05/19/23 16:06 Diltiazem Hcl 50 Mg/10 Ml Vial IVPUSH 05/19/23 15:05 20 mg STAT STA Administration Diltiazem HCl 60 mg 05/19/23 16:30 05/19/23 16:46 Diltiazem Hcl 60 Mg Tablet PO 05/19/23 16:31 60 mg ONCE ONE Administration Sodium Chloride 1,000 mls @ 999 mls/hr 05/19/23 15:15 05/19/23 15:37 Ns IV 05/19/23 16:15 999 mls/hr .Q1H1M NASH Administration Medical Decision Making Medical Decision Making [facility] Narrative: Patient had labs and a troponin already done a lot on a TSH and got chest x-ray also the patient heparin I will consult Cardiology and reassess. Perhaps patient go home on oral anticoagulant my concern is that he needs an ultrasound to rule out large clot burden via echo. Differential Diagnosis Differential Diagnoses: The differential diagnosis associated with the presentation includes Cardiomyopathy irregularly irregular rhythm atrial fibrillation new onset with RVR anemia hyperthyroidism depression anxiety Admission/Observation Consideration of admission/observation: Escalation of care including admission/observation considered Consult Healthcare Provider Management of the patient was discussed with: Muffler Mechanic Dr. Rice about atrial fibrillation treatment and management he agreed patient would benefit from admission and IV diltiazem drip. I spoke with Dr. Alfaro about admission. Lab Data MDM Lab Attestation statement: I reviewed the patient's lab results. 05/19/23 14:04 05/19/23 14:04 Labs: Lab Results 05/19/23 Range/Units 14:04 WBC 8.4 (4.8-10.8) X10*3/uL RBC 5.34 (4.60-5.80) X10*6/uL Hgb 14.8 (14.0-18.0) g/dl Hct 45.1 (42.0-52.0) % MCV 84.5 (80.0-98.0) fL MCH 27.7 (27.0-33.0) pg MCHC 32.8 (31.0-36.0) g/dl RDW 14.9 (11.0-16.0) % Plt Count 228 (160-400) X10*3/uL MPV 9.2 L (9.4-12.4) fL Immature Gran % (Auto) 0.5 H (0.0-0.4) % Neut % (Auto) 79.5 H (45-73) % Lymph % (Auto) 11.1 L (20-40) % [place] % (Auto) 8.1 (2-11) % Eos % (Auto) 0.4 (0-4) % Baso % (Auto) 0.4 (0-2) % Lymph # (Auto) 0.9 L (1.2-4.9) X10*3/uL [place] # (Auto) 0.7 (0.1-1.2) X10*3/uL Eos # (Auto) 0.0 (0.0-0.4) X10*3/uL Baso # (Auto) 0.0 (0.0-0.2) X10*3/uL Abs Immat Gran (auto) 0.04 H (0.00-0.03) X10*3/uL Absolute Neuts (auto) 6.7 (2.0-8.3) x10*3/uL Absolute Nucleated RBC 0.000 (0.0-0.012) X10*3/uL Nucleated RBC % (auto) 0.0 (0.0-0.2) /100WBC APTT 30.7 (26.0-36.8) SEC Sodium 139 (135-145) mmol/L Potassium 3.9 (3.3-5.1) mmol/L Chloride 105 (96-108) mmol/L Carbon Dioxide 25 (22-29) mmol/L Anion Gap 13 (12-20) BUN 10 (9-16) mg/dL Creatinine 1.07 (0.5-1.4) mg/dL Estim Creat Clear Calc 114.2 Estimated GFR > 60 Random Glucose 129 H (60-115) mg/dL Calcium 8.7 (8.4-10.2) mg/dL Total Bilirubin 0.6 (0.0-1.0) mg/dL AST 13 (5-37) U/L ALT 19 (0-40) U/L Alkaline Phosphatase 61 (39-117) U/L Troponin I High Sens < 2.7 (<3.5-35.0) ng/L B-Natriuretic Peptide 16 (<100) pg/mL Total Protein 7.8 (6.5-8.0) g/dL Albumin 4.3 (3.5-5.0) g/dL TSH 1.15 (0.32-4.0) uIU/mL Influenza Type A (PCR) NEGATIVE (Negative) Influenza Type B (PCR) NEGATIVE (Negative) RSV RNA Qual (PCR) NEGATIVE (Negative) SARS-CoV-2 RNA (RT-PCR) NEGATIVE (Negative) Independent Interpretation I performed an independent interpretation of an: EKG and Plain X-Ray Interpretation: EKG rate 137 atrial fibrillation with right ventricular response no obvious signs of ischemia no previous for comparison interpreted by me External Record Review External record reviewed: Inpatient record and Office record Critical Care Time Critical Care Time Critical Care Time: Yes Total Critical Care Time: 35 Attestation: Patient with new onset atrial fibrillation with RVR consult with Cardiology as well starting the patient on diltiazem IV consultation and admission of the patient Discharge Plan Discharge Clinical Impression: Atrial fibrillation, new onset, Atrial fibrillation with rapid ventricular response, Obesity, morbid, BMI 50 or higher Patient Disposition: Admitted As Inpatient
[2023-05-19 15:20] LABS: Influenza A PCR NEGATIVE (Negative); Influenza B PCR NEGATIVE (Negative); Resp Syncy Virus RNA Qual PCR NEGATIVE (Negative); SARS COV2 PCR INHOUSE NEGATIVE (Negative)
[2023-05-19] MEDS: Heparin Sodium,Porcine/1/2NS 25,000 UNIT/250 ML IV.SOLN 15.04 UNIT IVCONT (15:35)
[2023-05-19] MEDS: 0.9 % Sodium Chloride 1,000 ML 999 ML IV (15:37)
[2023-05-19 15:42] LABS: Thyroid Stimulating Hormone 1.15 uIU/mL (0.32-4.0)
[2023-05-19 16:02] VITALS: BP 146/71; PULSE 130; RESP 20; O2SAT 93
[2023-05-19] MEDS: dilTIAZem HCL 50 MG/10 ML VIAL 20 MG IVPUSH (16:06)
[2023-05-19] MEDS: dilTIAZem HCL 60 MG TABLET PO (16:46)
[2023-05-19] MEDS: dilTIAZem HCL 125 MG in 0.9 % Sodium Chloride 100 ML 10 MG IVCONT (16:58)
[2023-05-19 17:00] VITALS: BP 133/87; PULSE 113
[2023-05-19 17:28] LABS: Hematocrit 43.5 % (42.0-52.0); Hemoglobin 13.8 g/dl (14.0-18.0); Mean Corpuscular HGB Conc 31.7 g/dl (31.0-36.0); Mean Corpuscular Hemoglobin 27.4 pg (27.0-33.0); Mean Corpuscular Volume 86.5 fL (80.0-98.0); Mean Platelet Volume 8.7 fL (9.4-12.4); Platelet Count 196 X10*3/uL (160-400); Red Blood Count 5.03 X10*6/uL (4.60-5.80); Red Cell Distribution Width 15.1 % (11.0-16.0); White Blood Count 7.6 X10*3/uL (4.8-10.8)
--- NOTE | 2023-05-19 17:28 | PHA.MEDREC ---
Pharmacy Consult ? Medication Reconciliation Pharmacy has completed the medication reconciliation. Confirmed medication with patient and through pharmacy. Reports that he has been taking Mucinex for the last 3 days (for congestion)
[2023-05-19 17:36] LABS: INTERNATIONAL NORM RATIO 1.1 (0.9-1.1); Prothrombin Time 13.2 SEC (11.1-13.3)
--- NOTE | 2023-05-19 18:49 | P.HPHOSP_ITS ---
History of Present Illness Date of Service: 05/19/23 Attending physician on admission: Charles Alfaro Chief Complaint: sob, cough 57-year-old male with history hypertension, hyperlipidemia, varicose veins s/p ligation with chronic venous stasis dermatitis, who is morbidly obese presents to the ED earlier today from urgent care where he had presented due to upper respiratory symptoms that have been ongoing for 3 days. The patient had reported congestion, productive cough with yellow sputum, and shortness of breath that had been ongoing for 3 days. While at urgent Care, he was found to be in AFib with RVR. Denies any known history of atrial fibrillation and was transferred to the ED for further evaluation and management. 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 He denies any fevers, chills, sore throat, abdominal pain, nausea, vomiting, diarrhea, urinary symptoms, wheezing, palpitations, chest pain. He has no known sick contacts. He does report drinking about 4-5 beers nightly 3 nights per week. He is a former smoker with 35 pack year history who quit 10 years ago. Reports occassional mj use, but no illicit drug use. On arrival, patient tachycardic ranging 120-140, tachypneic to 24. No hypotension or hypoxia. There is no leukocytosis. Renal function normal, electrolyte levels normal the magnesium is still pending. Hepatic function within normal limits. Troponin below detectable limits. BNP 16. TSH 1.15. Negative for influenza, RSV, COVID-19. Chest x-ray shows interstitial and bronchovascular markings and bibasilar atelectasis. EKG shows atrial fibrillation with RVR, rate [address]/T-wave abnormality. While in the ED, he was given 1 L IV fluid bolus, treated with 60 mg p.o. diltiazem, 20 mg IV push diltiazem and started on Cardizem drip per protocol. He was also started on heparin drip for anticoagulation. Review of Systems 2 Review of Systems: General: No fevers, malaise, unintentional weight loss HEENT: +congestion. No sore throat, rhinorrhea, sinus pain, ear pain Cardiovascular: No chest pain, palpitations, or leg edema Respiratory: + shortness of breath, +cough. No wheezing GI: No abdominal pain, nausea, vomiting, diarrhea, constipation, melena, hematochezia : No dysuria, hematuria, increased urinary frequency, decreased urinary output MSK: No myalgia, back pain Neuro: No headaches, weakness, paresthesias Skin: No rashes or lesions [facility] Medical History Morbid obesity with BMI of 45.0-49.9, adult Encounter to establish care Foreign body (FB) in soft tissue HTN (hypertension) Cellulitis Family History Other No family history of coronary artery disease Surgical History History of wisdom tooth extraction Social History Housing: House Alcohol intake: current Alcohol intake frequency: a few times a week Alcohol type: beer, hard liquor and other Patient Tobacco Use Status: Former Tobacco user Cigarette Packs Per Day: 3 e-Cigarette/Vaping Use: Never Used Second Hand Smoke Exposure: No Substance Use Type: Marijuana Advance Directives: No service: No Current occupational status: other Cognitive needs: No Hearing needs: No Vision needs: Yes Meds Allergies Allergy/AdvReac Type Severity Reaction Status Date / Time No Known Allergies Allergy Verified 05/19/23 13:54 Active Medications: Current Medications Acetaminophen (Acetaminophen 325 Mg Tablet) 650 mg PO Q6H PRN PRN Reason: Pain, Mild (Pain Scale 1-3) Heparin Sodium (Porcine) (Heparin Sodium,Porcine 5,000 Unit/Ml Vial) 4,300 unit 40 unit/kg (4300 unit) IVPUSH PROTOCOL BOLUS PRN; Protocol PRN Reason: 40 unit/kg - Heparin Protocol Heparin Sodium (Porcine) (Heparin Sodium,Porcine 5,000 Unit/Ml Vial) 8,600 unit 80 unit/kg (8600 unit) IVPUSH PROTOCOL BOLUS PRN; Protocol PRN Reason: 80 unit/kg - Heparin Protocol Heparin Sodium/Sodium Chloride (Heparin Sodium,Porcine/1/2ns) 25,000 unit in 250 mls @ 0 mls/hr IVCONT .Q0M [facility]; Protocol Last Admin: 05/19/23 15:35 Dose: 14 units/kg/hr, 15.04 mls/hr Diltiazem HCl 125 mg/ Sodium (Chloride) 125 mls @ 0 mls/hr IVCONT .Q0M [facility]; Protocol Last Admin: 05/19/23 16:58 Dose: 10 mg/hr, 10 mls/hr Ondansetron HCl (Ondansetron Hcl 4 Mg/2 Ml Vial) 4 mg IVPUSH Q8H PRN PRN Reason: Nausea and Vomiting Senna (Sennosides 8.6 Mg Tablet) 17.2 mg PO BEDTIME PRN PRN Reason: Constipation Sodium Chloride (0.9 % Sodium Chloride Flush 3 Ml Syringe) 3 ml IVFLUSH QSHIFT [facility] Home Medications Medication Instructions Recorded Confirmed Last Taken Type diphenhydramine HCl 50 mg tablet 50 mg PO BEDTIME sleep 05/19/23 05/19/23 05/18/23 History (Benadryl Allergy) guaifenesin 600 mg tablet, 600 mg PO BID 05/19/23 05/19/23 05/19/23 History extended release 12 hr (Mucinex) Physical Exam 2 Vital Signs and Narrative: Vital Signs: Last Vital Signs Temp 98.3 F 05/19/23 13:54 Pulse 113 H 05/19/23 17:00 Resp 20 05/19/23 16:02 BP 133/87 05/19/23 17:00 Pulse Ox 93 05/19/23 16:02 O2 Del Method Room Air 05/19/23 16:02 BMI result Body Mass Index 50.2 Constitutional - Awake and Alert, No apparent distress Eyes - PERRLA, EOMI Cardiovascular - S1S2, irregularly irregular, tachycardic, No edema Respiratory - Normal lung expansion, Normal respiratory effort, No respiratory distress, diminished lung sounds bilaterally wtih expiratory wheezing Gastrointestinal - morbidly obese abdomen, NT / ND; +BS; No rebound or guarding Extremities - no calf tenderness bilaterally, no swelling Skin - Warm/Dry Neurological - Alert & oriented x3 Psychological - Appropriate affect Results Labs 05/19/23 17:18 05/19/23 14:04 Labs: Laboratory Results - last 24 hr 05/19/23 05/19/23 14:04 17:18 MCV 84.5 86.5 MCH 27.7 27.4 MCHC 32.8 31.7 RDW 14.9 15.1 Plt Count 228 196 MPV 9.2 L 8.7 L Immature Gran % (Auto) 0.5 H Neut % (Auto) 79.5 H Lymph % (Auto) 11.1 L [place] % (Auto) 8.1 Eos % (Auto) 0.4 Baso % (Auto) 0.4 Lymph # (Auto) 0.9 L [place] # (Auto) 0.7 Eos # (Auto) 0.0 Baso # (Auto) 0.0 Abs Immat Gran (auto) 0.04 H Absolute Neuts (auto) 6.7 Absolute Nucleated RBC 0.000 0.000 Nucleated RBC % (auto) 0.0 0.0 PT 13.2 INR 1.1 APTT 30.7 Anion Gap 13 Estim Creat Clear Calc 114.2 Estimated GFR > 60 Random Glucose 129 H Calcium 8.7 Total Bilirubin 0.6 AST 13 ALT 19 Alkaline Phosphatase 61 Troponin I High Sens < 2.7 B-Natriuretic Peptide 16 Total Protein 7.8 Albumin 4.3 TSH 1.15 Influenza Type A (PCR) NEGATIVE Influenza Type B (PCR) NEGATIVE RSV RNA Qual (PCR) NEGATIVE SARS-CoV-2 RNA (RT-PCR) NEGATIVE Imaging Radiologist's Impressions: Impressions Chest X-Ray 05/19/23 16:23 IMPRESSION: 1. Redemonstrated interstitial and bronchovascular markings. 2. Bibasilar atelectasis. Assessment and Plan (1) Atrial fibrillation with rapid ventricular response: Status: Acute (2) URI (upper respiratory infection): Status: Acute (3) COPD exacerbation: Status: Acute Plan 57-year-old male with history hypertension, hyperlipidemia, varicose veins s/p ligation with chronic venous stasis dermatitis, who is morbidly obese admitted for further management of afib rvr. #New onset atrial fibrillation with rvr -likely related to URI -EKG with nonspecific st/twave abnormality. Trop WNL. TSH normal. Mag pending -continue cardizem drip per protocol -started on heparin for AC in ed. Transition to eliquis as appropriate -echo -cardiac diet -cardiology consult #Suspected viral URI with suspected COPD exacerbation -CXR negative for focal consolidation but does show increased bronchovascular markings. No formal diagnosis of COPD but does have 35 pack-year history -negative for COVID-19, influenza, RSV -full viral respiratory panel pending -IV methylprednisolone 40 mg b.i.d. -levalbuterol q.4h while awake -guaifenesin # hypertension -blood pressure reasonably controlled -on Cardizem drip. Resume amlodipine a.m. # alcohol abuse -consumes 4-5 beers 3 nights per week -counseled on cessation/cutting back # morbid obesity -counseled on weight loss and lifestyle changes DVT prophylaxis-on heparin. Transitioned to Eliquis Full code Patient requires inpatient stay at least 2 midnights for new onset atrial fibrillation with RVR requiring IV Cardizem drip per protocol, expert consultation, and close cardiac monitoring Quality Stroke Does the patient have a stroke diagnosis?: No VTE Prior VTE?: No VTE Risk Level:: Medical - moderate - high VTE Device Contraindication: Treatment Not Indicated VTE Drug Contraindication: N/A - Med Ordered
[2023-05-19] MEDS: methylPREDNISolone Sod Succ 40 MG/ML VIAL IVPUSH (19:02)
[2023-05-19 19:25] LABS: Magnesium 1.9 mg/dL (1.6-2.6)
[2023-05-19] MEDS: levalbuterol HCL 1.25 MG/3 ML VIAL.NEB INHALE ×2 (19:48→23:24)
[2023-05-19 19:50] VITALS: PULSE 98; RESP 18; O2SAT 94
[2023-05-19 20:17] VITALS: BP 172/84; PULSE 102; RESP 20; TEMP 36.9; O2SAT 91
[2023-05-19] MEDS: diphenhydrAMINE HCL 25 MG CAPSULE 50 MG PO (21:05)
[2023-05-19] MEDS: guaiFENesin LA 600 MG TAB.ER.12H PO (21:05)
[2023-05-19 21:56] LABS: PTT Heparin Drip 37.5 SEC (53-77.9)
[2023-05-19] MEDS: Heparin Sodium,Porcine 5,000 UNIT/ML VIAL 4300 UNIT IVPUSH (22:34)
[2023-05-19 23:26] VITALS: PULSE 94; RESP 20; O2SAT 91
[2023-05-20 04:30] VITALS: BP 142/85; PULSE 82; RESP 20; TEMP 36.5; O2SAT 94
--- NOTE | 2023-05-20 05:45 | PC.NURSE ---
Vedazem drip restarted at 0415- down time
[2023-05-20 05:46] VITALS: PULSE 90; RESP 20; O2SAT 92
[2023-05-20] MEDS: levalbuterol HCL 1.25 MG/3 ML VIAL.NEB INHALE (05:46)
[2023-05-20 05:57] LABS: MANUAL DIFF FLAG NO
[2023-05-20 05:58] LABS: PTT Heparin Drip 58.7 SEC (53-77.9)
[2023-05-20 05:58] LABS: Basophils Percent Auto 0.3 % (0-2); Hematocrit 46.3 % (42.0-52.0); Imm Gran Abs Auto 0.07 X10*3/uL (0.00-0.03); Imm Gran Pct Auto 0.9 % (0.0-0.4); Lymphocytes Absolute Auto 0.8 X10*3/uL (1.2-4.9); Lymphocytes Percent Auto 9.8 % (20-40); Mean Corpuscular HGB Conc 32.4 g/dl (31.0-36.0); Mean Corpuscular Hemoglobin 27.5 pg (27.0-33.0); Mean Corpuscular Volume 84.8 fL (80.0-98.0); Mean Platelet Volume 8.8 fL (9.4-12.4); Monocytes Absolute Auto 0.2 X10*3/uL (0.1-1.2); Monocytes Percent Auto 3.1 % (2-11); Neutrophils Absolute Auto 6.5 x10*3/uL (2.0-8.3); Neutrophils Percent Auto 85.9 % (45-73); Platelet Count 235 X10*3/uL (160-400); Red Blood Count 5.46 X10*6/uL (4.60-5.80); White Blood Count 7.6 X10*3/uL (4.8-10.8)
[2023-05-20 06:06] LABS: INTERNATIONAL NORM RATIO 1.1 (0.9-1.1); Prothrombin Time 12.9 SEC (11.1-13.3)
[2023-05-20 06:08] LABS: Anion Gap 15 (12-20); Blood Urea Nitrogen 14 mg/dL (9-16); Calcium 9.1 mg/dL (8.4-10.2); Carbon Dioxide 23 mmol/L (22-29); Chloride 104 mmol/L (96-108); Creatinine Clr Calc Pharmacy 81.6; Estimated Glomerular Filt Rate > 60; Glucose Random 162 mg/dL (60-115); Potassium 4.3 mmol/L (3.3-5.1); Sodium 138 mmol/L (135-145)
[2023-05-20 06:17] VITALS: BP 155/94; PULSE 66; RESP 20
--- NOTE | 2023-05-20 06:26 | PC.NURSE ---
pt comes in with upper symptoms, cough, SOB x 3 days, when presented to urgent care he was found in afib RVR. On arriva his hr WAS 120-140. pmh: HTN, HLD, chronic venous stasis. Pt is also a daily drinker of 4-5 beers however denies hx of withdrawl, Scoring 0 at this time on CIWA. Pt was placed on Cardizem drip ( 10 mg) and heparin for anitcoag. At 2129 his PTT was 37.5 so 4300 bolus given and rate increased to 16 per protocol .Plan echo, tele, cardiac diet. , recheck labs Pt can ambulate. 20 in R ac and hand.
--- NOTE | 2023-05-20 07:00 | CA_ITS ---
Transthoracic Echocardiogram Patient (Last, First, Middle): Lion Haney J Gender: Male Date of : 1965 Age: 57 Procedure Date: 05/20/2023 Procedure Type: Transthoracic Echocardiogram Location: ER Height: 177.8 cm Weight: 107.05 kg BSA: 2.24 m2 Heart Rate: bpm BP: 146 / 93 mmHg Account Specialist: SB Referring MD: Sandi GONSALEZ Symptoms: afib rvr Study Quality: Poor, contrast ECG Rhythm: Atrial Fibrillation Conclusions: - Normal left ventricular size and systolic function. There is mildly increased left ventricular wall thickness. The visually estimated ejection fraction is between 60-65%. - Normal right ventricular cavity size and systolic function. - Mildly elevated right atrial pressure. - There is mild dilatation of the sinuses of Valsalva measuring 4.40 cm and mild dilatation of the ascending aorta measuring 4.50 cm. Findings Procedure Information Contrast agent, definity, is being given per protocol without apparent complications. The quality of the study was despite the use of contrast and endocardial definition remains poor. The study quality is limited by the patients inability to tolerate the test, patients body habitus, limitations of a portable exam, and lung artifact. Left Ventricle Normal left ventricular size and systolic function. There is mildly increased left ventricular wall thickness. The visually estimated ejection fraction is between 60-65%. There is no evidence of regional wall motion abnormalities. Diastolic function is indeterminate on the basis of available data. Right Ventricle Normal right ventricular cavity size and systolic function. Atria The left atrium is mildly dilated. Aortic Valve The aortic valve was not well visualized. There is no aortic valve stenosis. There is no aortic valve regurgitation. Mitral Valve Likely normal mitral valve structure and function. There is no mitral valve regurgitation. There is no mitral valve stenosis. Pulmonic Valve The pulmonic valve was not well visualized. Tricuspid Valve Likely normal tricuspid valve structure and function. Tricuspid regurgitation envelope is inadequate for calculation of right ventricular systolic pressure. Mildly elevated right atrial pressure. Great Vessels There is mild dilatation of the sinuses of Valsalva measuring 4.40 cm and mild dilatation of the ascending aorta measuring 4.50 cm. Venous The inferior vena cava is dilated and collapses greater than 50% with inspiration. Pericardium/Pleural There is no evidence of pericardial effusion. Prior Study Comparison No prior study available for comparison. Measurements 2D Linear Measurements IVSd: 1.08 0.6-0.9/0.6-1.0 cm LVIDd: 4.86 3.9-5.3/4.2-5.9 cm LVIDd Index: 2.17 2.4-3.2/2.2-3.1 cm/m2 LVIDs: 3.18 2.0-3.6 cm LA Diam: 3.30 2.7-3.8/3.0-4.0 cm LAIDs Index: 1.47 1.5-2.3 cm/m2 LVOT Diam: 2.30 3.0+(-)1.3 cm 2D Systolic Function EF 4C: 67.80 >55% Mitral Valve MV Pk E: 1.25 Aortic Valve AoV Pk Phuc: 1.09 AoV Pk Grad: 5.00 GEOVANNA: 3.37 LVOT LVOT Pk Phuc: 0.98 LVOT Mn Phuc: 0.73 LVOT VTI: 0.19 LVOT Pk Grad: 4.00 LVOT Mn Grad: 3.00 LVOT Diam: 2.30 LVOT Area: 4.15 Diastolic Function MV Pk E: 1.25 IVC Diam Insp: 0.80 IVC Diam Exp: 2.36 Right Ventricle TAPSE (mm): 19.30 TVS' Phuc: 13.40 Tricuspid Valve RA Press: 8.00 IVC Diam Exp: 2.36 IVC Diam Insp: 0.80 Great Vessels Aorta Sinus of Valsalva: 4.40 2.0-3.5 cm Ao Asc: 4.50 2.1-3.4 cm Pulmonary Valve PV Pk Phuc: 0.94 Peak PV Grad: 3.00 Updated in Other Vendor System with Status of Final Wilner Rice MD electronically signed on 05/20/2023 10:59:06 AM with status of Final
[2023-05-20] MEDS: methylPREDNISolone Sod Succ 40 MG/ML VIAL IVPUSH (07:48)
[2023-05-20 08:00] VITALS: BP 146/93; PULSE 87; RESP 20; O2SAT 94
--- NOTE | 2023-05-20 08:00 | PC.NURSE ---
pt is alert and oriented, sitting on the edge of the bed, pt denies pain/sob just keeps saying that his nose feels very congested, ls diminished, vs stable but still a-fib on the monitor in the rate of 80's
[2023-05-20] MEDS: guaiFENesin LA 600 MG TAB.ER.12H PO (08:06)
[2023-05-20] MEDS: amLODIPine Besylate 10 MG TABLET PO (08:06)
[2023-05-20] MEDS: Heparin Sodium,Porcine/1/2NS 25,000 UNIT/250 ML IV.SOLN 17.18 UNIT IVCONT (08:06)
[2023-05-20] MEDS: Cholecalciferol (Vitamin D3) 25 MCG TABLET PO (08:06)
--- NOTE | 2023-05-20 10:16 | P.PNIM_ITS ---
Subjective Subjective Date of Service: 05/20/23 Interval History: urti symptoms Physical Exam 2 Vital Signs: Vital Signs: Last Vital Signs Temp 97.7 F 05/20/23 04:30 Pulse 87 05/20/23 08:00 Resp 20 05/20/23 08:00 BP 146/93 H 05/20/23 08:00 Pulse Ox 94 05/20/23 08:00 O2 Del Method Room Air 05/20/23 08:00 BMI result Body Mass Index 50.2 General: AO X 3, no acute distress Resp: diminished bilateral, no accessory muscles used CVS: S1,S2, irregular GI: soft, non tender, non distended Neuro: motor grossly intact, alert Psych: appropriate affect, appropriate insight Objective Data Active Medications Acetaminophen (Acetaminophen 325 Mg Tablet) 650 mg PO Q6H PRN PRN Reason: Pain, Mild (Pain Scale 1-3) Amlodipine Besylate (Amlodipine Besylate 10 Mg Tablet) 10 mg PO DAILY [facility]; Protocol Last Admin: 05/20/23 08:06 Dose: 10 mg Documented By: JAYME Diphenhydramine HCl (Diphenhydramine Hcl 25 Mg Capsule) 50 mg PO BEDTIME [facility] Last Admin: 05/19/23 21:05 Dose: 50 mg Documented By: ROB Guaifenesin (Guaifenesin La 600 Mg Tab.Er.12h) 600 mg PO BID [facility] Last Admin: 05/20/23 08:06 Dose: 600 mg Documented By: JAYME Heparin Sodium (Porcine) (Heparin Sodium,Porcine 5,000 Unit/Ml Vial) 4,300 unit 40 unit/kg (4300 unit) IVPUSH PROTOCOL BOLUS PRN; Protocol PRN Reason: 40 unit/kg - Heparin Protocol Last Admin: 05/19/23 22:34 Dose: 4,300 unit Documented By: ROB Heparin Sodium (Porcine) (Heparin Sodium,Porcine 5,000 Unit/Ml Vial) 8,600 unit 80 unit/kg (8600 unit) IVPUSH PROTOCOL BOLUS PRN; Protocol PRN Reason: 80 unit/kg - Heparin Protocol Heparin Sodium/Sodium Chloride (Heparin Sodium,Porcine/1/2ns) 25,000 unit in 250 mls @ 0 mls/hr IVCONT .Q0M [facility]; Protocol Last Admin: 05/20/23 08:06 Dose: 16 units/kg/hr, 17.18 mls/hr Documented By: JAYME Co-signed By: INOCENCIO Diltiazem HCl 125 mg/ Sodium (Chloride) 125 mls @ 0 mls/hr IVCONT .Q0M [facility]; Protocol Last Titration: 05/20/23 05:46 Dose: Infused Documented By: ROB Levalbuterol HCl (Levalbuterol Hcl 1.25 Mg/3 Ml Vial.Neb) 1.25 mg INHALE RQ4H [facility] Last Admin: 05/20/23 07:43 Dose: Not Given Documented By: SENG Non-Admin Reason: Previously Administered Lidocaine (Lidocaine 4 % Patch Adh..Patch) 1 patch TRANSDERMA DAILY PRN PRN Reason: pain Methylprednisolone Sodium Succinate (Methylprednisolone Sod Succ 40 Mg/Ml Vial) 40 mg IVPUSH Q12H [facility] Last Admin: 05/20/23 07:48 Dose: 40 mg Documented By: JAYME Ondansetron HCl (Ondansetron Hcl 4 Mg/2 Ml Vial) 4 mg IVPUSH Q8H PRN PRN Reason: Nausea and Vomiting Senna (Sennosides 8.6 Mg Tablet) 17.2 mg PO BEDTIME PRN PRN Reason: Constipation Sodium Chloride (0.9 % Sodium Chloride Flush 3 Ml Syringe) 3 ml IVFLUSH QSHIFT [facility] Last Admin: 05/20/23 07:56 Dose: Not Given Documented By: JAYME Non-Admin Reason: IV Running Vitamin D (Cholecalciferol (Vitamin D3) 25 Mcg Tablet) 25 mcg PO DAILY [facility] Last Admin: 05/20/23 08:06 Dose: 25 mcg Documented By: JAYME Labs 05/20/23 05:46 05/20/23 05:46 Labs: Laboratory Results - last 24 hr 05/19/23 05/19/23 05/19/23 14:04 17:18 21:29 MCV 84.5 86.5 MCH 27.7 27.4 MCHC 32.8 31.7 RDW 14.9 15.1 Plt Count 228 196 MPV 9.2 L 8.7 L Immature Gran % (Auto) 0.5 H Neut % (Auto) 79.5 H Lymph % (Auto) 11.1 L [place] % (Auto) 8.1 Eos % (Auto) 0.4 Baso % (Auto) 0.4 Lymph # (Auto) 0.9 L [place] # (Auto) 0.7 Eos # (Auto) 0.0 Baso # (Auto) 0.0 Abs Immat Gran (auto) 0.04 H Absolute Neuts (auto) 6.7 Absolute Nucleated RBC 0.000 0.000 Nucleated RBC % (auto) 0.0 0.0 PT 13.2 INR 1.1 APTT 30.7 aPTT Heparin Protocol 37.5 L Anion Gap 13 Estim Creat Clear Calc 114.2 Estimated GFR > 60 Random Glucose 129 H Calcium 8.7 Magnesium 1.9 Total Bilirubin 0.6 AST 13 ALT 19 Alkaline Phosphatase 61 Troponin I High Sens < 2.7 B-Natriuretic Peptide 16 Total Protein 7.8 Albumin 4.3 TSH 1.15 Influenza Type A (PCR) NEGATIVE Influenza Type B (PCR) NEGATIVE RSV RNA Qual (PCR) NEGATIVE SARS-CoV-2 RNA (RT-PCR) NEGATIVE 05/20/23 05/20/23 04:35 05:46 MCV 84.8 MCH 27.5 MCHC 32.4 RDW 15.0 Plt Count 235 MPV 8.8 L Immature Gran % (Auto) 0.9 H Neut % (Auto) 85.9 H Lymph % (Auto) 9.8 L [place] % (Auto) 3.1 Eos % (Auto) 0.0 Baso % (Auto) 0.3 Lymph # (Auto) 0.8 L [place] # (Auto) 0.2 Eos # (Auto) 0.0 Baso # (Auto) 0.0 Abs Immat Gran (auto) 0.07 H Absolute Neuts (auto) 6.5 Absolute Nucleated RBC 0.000 Nucleated RBC % (auto) 0.0 PT 12.9 INR 1.1 APTT aPTT Heparin Protocol 58.7 D Anion Gap 15 Estim Creat Clear Calc 81.6 Estimated GFR > 60 Random Glucose 162 H Calcium 9.1 Magnesium Total Bilirubin AST ALT Alkaline Phosphatase Troponin I High Sens B-Natriuretic Peptide Total Protein Albumin TSH Influenza Type A (PCR) Influenza Type B (PCR) RSV RNA Qual (PCR) SARS-CoV-2 RNA (RT-PCR) Assessment and Plan (1) COPD exacerbation: Status: Acute Plan 57M PMH htn, hld, copd, obesity, presented with urti symptoms and found to have afib with rvr new onset afib with rvr rate controlled on cardizem infusion hep iv echo, cardio copd with acute decompensation steroids, nebs htn amlodipine etoh dependence monitor for withdrawal morbid obesity wegiht loss recommended dvt prophylaxis - hep iv full code reason for continued hospitalization:on conitnuous cardizem infusion, pending echo Quality Stroke Does the patient have a stroke diagnosis?: No VTE Prior VTE?: No VTE Risk Level:: Medical - moderate - high VTE Device Contraindication: Treatment Not Indicated VTE Drug Contraindication: N/A - Med Ordered
--- NOTE | 2023-05-20 10:52 | PM.CNCAR ---
History of Present Illness History of Present Illness Date of Service: 05/20/23 Requesting physician: Charles Alfaro Chief complaint: afib rvr, uri, ?underlying copd exacerbation Narrative: 57-year-old gentleman presenting for atrial fibrillation. He went to urgent care where atrial fibrillation was diagnosed and he was sent to the emergency department. In the ER was noted to be in AFib with RVR. He also is complaining of shortness of breath. Chest x-ray showed some interstitial changes but no overt heart failure. He was saying that he was short of breath. He has background of smoking and COPD. He has been started on Cardizem with good rate control. Echocardiography is showing normal biventricular function. He has hypertension and aortic dilatation. I think he will benefit from anticoagulation and agree with starting him on Eliquis. He is quite anxious and wants to go home. [facility] Past Medical History Medical History Morbid obesity with BMI of 45.0-49.9, adult Encounter to establish care Foreign body (FB) in soft tissue HTN (hypertension) Cellulitis Family History Family History Other No family history of coronary artery disease Surgical History Surgical History History of wisdom tooth extraction Social History Social History Housing: House Alcohol intake: current Alcohol intake frequency: a few times a week Alcohol type: beer, hard liquor and other Patient Tobacco Use Status: Former Tobacco user Cigarette Packs Per Day: 3 e-Cigarette/Vaping Use: Never Used Second Hand Smoke Exposure: No Substance Use Type: Marijuana Advance Directives: No Nutrition Risks: No Nutritional Risk service: No Current occupational status: other Cognitive needs: No Hearing needs: No Vision needs: Yes Meds Allergies Allergy/AdvReac Type Severity Reaction Status Date / Time No Known Allergies Allergy Verified 05/19/23 13:54 Active Medications: Current Medications Acetaminophen (Acetaminophen 325 Mg Tablet) 650 mg PO Q6H PRN PRN Reason: Pain, Mild (Pain Scale 1-3) Apixaban (Apixaban 5 Mg Tablet) 5 mg PO BID NASH Diltiazem HCl (Diltiazem Hcl Cd 240 Mg Cap.Er.Deg) 240 mg PO DAILY [facility]; Protocol Diphenhydramine HCl (Diphenhydramine Hcl 25 Mg Capsule) 50 mg PO BEDTIME [facility] Last Admin: 05/19/23 21:05 Dose: 50 mg Guaifenesin (Guaifenesin La 600 Mg Tab.Er.12h) 600 mg PO BID [facility] Last Admin: 05/20/23 08:06 Dose: 600 mg Levalbuterol HCl (Levalbuterol Hcl 1.25 Mg/3 Ml Vial.Neb) 1.25 mg INHALE RQ4H [facility] Last Admin: 05/20/23 07:43 Dose: Not Given Lidocaine (Lidocaine 4 % Patch Adh..Patch) 1 patch TRANSDERMA DAILY PRN PRN Reason: pain Methylprednisolone Sodium Succinate (Methylprednisolone Sod Succ 40 Mg/Ml Vial) 40 mg IVPUSH Q12H [facility] Last Admin: 05/20/23 07:48 Dose: 40 mg Ondansetron HCl (Ondansetron Hcl 4 Mg/2 Ml Vial) 4 mg IVPUSH Q8H PRN PRN Reason: Nausea and Vomiting Senna (Sennosides 8.6 Mg Tablet) 17.2 mg PO BEDTIME PRN PRN Reason: Constipation Sodium Chloride (0.9 % Sodium Chloride Flush 3 Ml Syringe) 3 ml IVFLUSH QSHIFT [facility] Last Admin: 05/20/23 07:56 Dose: Not Given Vitamin D (Cholecalciferol (Vitamin D3) 25 Mcg Tablet) 25 mcg PO DAILY [facility] Last Admin: 05/20/23 08:06 Dose: 25 mcg Home Medications Medication Instructions Recorded Confirmed Last Taken Type diphenhydramine HCl 50 mg tablet 50 mg PO BEDTIME sleep 05/19/23 05/19/23 05/18/23 History (Benadryl Allergy) guaifenesin 600 mg tablet, 600 mg PO BID 05/19/23 05/19/23 05/19/23 History extended release 12 hr (Mucinex) Physical Exam Vital Signs: Vital Signs: Last Vital Signs Temp 97.7 F 05/20/23 04:30 Pulse 87 05/20/23 08:00 Resp 20 05/20/23 08:00 BP 146/93 H 05/20/23 08:00 Pulse Ox 94 05/20/23 08:00 O2 Del Method Room Air 05/20/23 08:00 BMI result Body Mass Index 50.2 GENERAL APPEARANCE: in no acute distress, morbidly obese. NECK: no carotid bruit, no obvious jugular venous distention. SKIN: no suspicious lesions, warm and dry. HEART: no murmurs, irregular rate and rhythm. LUNGS: clear to auscultation bilaterally. ABDOMEN: soft, nontender. NEUROLOGIC: No gross deficits, AAO X 3 Objective Labs and Meds 05/20/23 05:46 05/20/23 05:46 Lab results: Laboratory Results - last 24 hr 05/19/23 05/19/23 05/19/23 14:04 17:18 21:29 WBC 8.4 7.6 RBC 5.34 5.03 Hgb 14.8 13.8 L Hct 45.1 43.5 MCV 84.5 86.5 MCH 27.7 27.4 MCHC 32.8 31.7 RDW 14.9 15.1 Plt Count 228 196 MPV 9.2 L 8.7 L Immature Gran % (Auto) 0.5 H Neut % (Auto) 79.5 H Lymph % (Auto) 11.1 L [place] % (Auto) 8.1 Eos % (Auto) 0.4 Baso % (Auto) 0.4 Lymph # (Auto) 0.9 L [place] # (Auto) 0.7 Eos # (Auto) 0.0 Baso # (Auto) 0.0 Abs Immat Gran (auto) 0.04 H Absolute Neuts (auto) 6.7 Absolute Nucleated RBC 0.000 0.000 Nucleated RBC % (auto) 0.0 0.0 PT 13.2 INR 1.1 APTT 30.7 aPTT Heparin Protocol 37.5 L Sodium 139 Potassium 3.9 Chloride 105 Carbon Dioxide 25 Anion Gap 13 BUN 10 Creatinine 1.07 Estim Creat Clear Calc 114.2 Estimated GFR > 60 Random Glucose 129 H Calcium 8.7 Magnesium 1.9 Total Bilirubin 0.6 AST 13 ALT 19 Alkaline Phosphatase 61 Troponin I High Sens < 2.7 B-Natriuretic Peptide 16 Total Protein 7.8 Albumin 4.3 TSH 1.15 Influenza Type A (PCR) NEGATIVE Influenza Type B (PCR) NEGATIVE RSV RNA Qual (PCR) NEGATIVE SARS-CoV-2 RNA (RT-PCR) NEGATIVE 05/20/23 05/20/23 04:35 05:46 WBC 7.6 RBC 5.46 Hgb 15.0 Hct 46.3 MCV 84.8 MCH 27.5 MCHC 32.4 RDW 15.0 Plt Count 235 MPV 8.8 L Immature Gran % (Auto) 0.9 H Neut % (Auto) 85.9 H Lymph % (Auto) 9.8 L [place] % (Auto) 3.1 Eos % (Auto) 0.0 Baso % (Auto) 0.3 Lymph # (Auto) 0.8 L [place] # (Auto) 0.2 Eos # (Auto) 0.0 Baso # (Auto) 0.0 Abs Immat Gran (auto) 0.07 H Absolute Neuts (auto) 6.5 Absolute Nucleated RBC 0.000 Nucleated RBC % (auto) 0.0 PT 12.9 INR 1.1 APTT aPTT Heparin Protocol 58.7 D Sodium 138 Potassium 4.3 Chloride 104 Carbon Dioxide 23 Anion Gap 15 BUN 14 Creatinine 1.21 Estim Creat Clear Calc 81.6 Estimated GFR > 60 Random Glucose 162 H Calcium 9.1 Magnesium Total Bilirubin AST ALT Alkaline Phosphatase Troponin I High Sens B-Natriuretic Peptide Total Protein Albumin TSH Influenza Type A (PCR) Influenza Type B (PCR) RSV RNA Qual (PCR) SARS-CoV-2 RNA (RT-PCR) Imaging Radiologist's impression: Impressions Chest X-Ray 05/19/23 16:23 IMPRESSION: 1. Redemonstrated interstitial and bronchovascular markings. 2. Bibasilar atelectasis. Assessment and Plan (1) COPD exacerbation: Status: Acute (2) Atrial fibrillation with rapid ventricular response: Status: Acute Plan 57-year-old gentleman with AFib with RVR. Background of alcohol use. Morbid obesity. Chads Vasc 2. Recommend anticoagulation with Eliquis 5 mg twice a day. Can be changed to oral Cardizem from the Cardizem drip. Can be discharged home with Cardizem and Eliquis. Thank you for allowing me to participate in the care of your patient. Please feel free to contact me if you have any questions. Procedures Date of Service Date of Service: 05/20/23
[2023-05-20] MEDS: Oxymetazoline HCl 0.05 % Nasal 15 ML SPRAY 2 SPRAY NOSTRIL-B (11:40)
[2023-05-20 11:42] VITALS: BP 140/90; PULSE 95; RESP 20
[2023-05-20] MEDS: dilTIAZem HCL CD 240 MG CAP.ER.DEG PO (11:55)
--- NOTE | 2023-05-20 12:22 | MHC.CM.PN ---
Attempted to meet with patient in regards to discharge planning. Nursing care currently being provided. Will attempt to meet again. Continue to monitor for d/c needs.
[2023-05-20 14:01] LABS: Adenovirus PCR Not Detected (Not Detect.); Bordetella parapertussis PCR Not Detected (Not Detect.); Bordetella pertussis PCR Not Detected (Not Detect.); Chlamydia pneumoniae PCR Not Detected (Not Detect.); Coronavirus 229E PCR Not Detected (Not Detect.); Coronavirus HKU1 PCR Not Detected (Not Detect.); Coronavirus NL63 PCR Not Detected (Not Detect.); Coronavirus OC43 PCR Not Detected (Not Detect.); Human metapneumovirus PCR Not Detected (Not Detect.); Influenza A PCR Not Detected (Not Detect.); Influenza B PCR Not Detected (Not Detect.); Mycoplasma pneumoniae PCR Not Detected (Not Detect.); Parainfluenza 1 PCR Not Detected (Not Detect.); Parainfluenza 2 PCR Not Detected (Not Detect.); Parainfluenza 3 PCR Not Detected (Not Detect.); Parainfluenza 4 PCR Not Detected (Not Detect.); RSV PCR Not Detected (Not Detect.); Rhino/Enterovirus PCR Detected (Not Detect.)
[2023-05-20 14:22] LABS: SARS-CoV-2 PCR Not Detected (Not Detect.)
--- NOTE | 2023-05-20 16:12 | MHC.CM.PN ---
CM attempted to meet with Patient in assigned room (450); Patient is still in the ED. CM will follow.
--- NOTE | 2023-05-20 16:13 | PC.NURSE ---
dr aguiar just informed this rn that the patients is going home
--- NOTE | 2023-05-20 16:14 | PM.DS ---
DS: Providers Provider Date of Service: 05/20/23 Date of admission: 05/19/23 18:42 Primary care physician: Sophie Lozano MD Consults: 05/19/23 18:44 Consult to Cardiology Routine Consulting Provider: [facility] [place] [facility] Reason for consultation: afib rvr DS: Diagnosis Discharge Diagnosis (1) COPD exacerbation: Status: Acute (2) Atrial fibrillation with rapid ventricular response: Status: Acute DS: Summary Hospital Course Hospital Course: from initial hpi: 57-year-old male with history hypertension, hyperlipidemia, varicose veins s/p ligation with chronic venous stasis dermatitis, who is morbidly obese presents to the ED earlier today from urgent care where he had presented due to upper respiratory symptoms that have been ongoing for 3 days. The patient had reported congestion, productive cough with yellow sputum, and shortness of breath that had been ongoing for 3 days. While at urgent Care, he was found to be in AFib with RVR. Denies any known history of atrial fibrillation and was transferred to the ED for further evaluation and management. 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 He denies any fevers, chills, sore throat, abdominal pain, nausea, vomiting, diarrhea, urinary symptoms, wheezing, palpitations, chest pain. He has no known sick contacts. He does report drinking about 4-5 beers nightly 3 nights per week. He is a former smoker with 35 pack year history who quit 10 years ago. Reports occassional mj use, but no illicit drug use. On arrival, patient tachycardic ranging 120-140, tachypneic to 24. No hypotension or hypoxia. There is no leukocytosis. Renal function normal, electrolyte levels normal the magnesium is still pending. Hepatic function within normal limits. Troponin below detectable limits. BNP 16. TSH 1.15. Negative for influenza, RSV, COVID-19. Chest x-ray shows interstitial and bronchovascular markings and bibasilar atelectasis. EKG shows atrial fibrillation with RVR, rate [address]/T-wave abnormality. While in the ED, he was given 1 L IV fluid bolus, treated with 60 mg p.o. diltiazem, 20 mg IV push diltiazem and started on Cardizem drip per protocol. He was also started on heparin drip for anticoagulation. hospital course: Patient was admitted for new onset atrial fibrillation with rapid ventricular response. His rate was controlled with IV Cardizem infusion. Was given IV heparin and then transitioned to p.o. apixaban. Echocardiogram was unremarkable. Was seen by Cardiology recommended oral diltiazem. Patient will follow up outpatient. For COPD with acute decompensation was treated with IV steroids and bronchodilators and Afrin. Symptoms improved and will be discharged on 5 more days of p.o. prednisone. For hypertension was continued on amlodipine. For alcohol dependence patient had no signs of withdrawal. Abstinence is recommended. For morbid obesity weight recommended. Patient is feeling better will be discharged home. Time Attestation Discharge Coordination Time (in mins): 35 Quality: Safe Use of Opioids Does Pt have an Active Cancer Diagnosis on the Problem List?: No Quality: Stroke Does the patient have a stroke diagnosis?: No Physical Exam Vital Signs: Vital Signs: Last Vital Signs Temp 97.7 F 05/20/23 04:30 Pulse 95 05/20/23 11:42 Resp 20 05/20/23 11:42 BP 140/90 H 05/20/23 11:42 Pulse Ox 94 05/20/23 08:00 O2 Del Method Room Air 05/20/23 08:00 BMI result Body Mass Index 50.2 GENERAL APPEARANCE: in no acute distress, morbidly obese. NECK: no carotid bruit, no obvious jugular venous distention. SKIN: no suspicious lesions, warm and dry. HEART: no murmurs, irregular rate and rhythm. LUNGS: clear to auscultation bilaterally. ABDOMEN: soft, nontender. NEUROLOGIC: No gross deficits, AAO X 3 DS: Data Data Completed and Pending Labs on day of discharge: Laboratory Results - last 24 hr 05/19/23 05/19/23 05/19/23 14:04 17:18 21:29 WBC 7.6 RBC 5.03 Hgb 13.8 L Hct 43.5 MCV 86.5 MCH 27.4 MCHC 31.7 RDW 15.1 Plt Count 196 MPV 8.7 L Immature Gran % (Auto) Neut % (Auto) Lymph % (Auto) [place] % (Auto) Eos % (Auto) Baso % (Auto) Lymph # (Auto) [place] # (Auto) Eos # (Auto) Baso # (Auto) Abs Immat Gran (auto) Absolute Neuts (auto) Absolute Nucleated RBC 0.000 Nucleated RBC % (auto) 0.0 PT 13.2 INR 1.1 aPTT Heparin Protocol 37.5 L Sodium Potassium Chloride Carbon Dioxide Anion Gap BUN Creatinine Estim Creat Clear Calc Estimated GFR Random Glucose Calcium Magnesium 1.9 Respiratory Panel Gonzalez Adenovirus (Rapid PCR) B.pert (TEM-PCR) B.parapertussis DNA PCR C. pneumoniae DNA (PCR) Coronavirus OC43 (PCR) Coronavirus HKU1 (PCR) Coronavirus 229E (PCR) Coronavirus NL63 (PCR) Human Metapneumovir PCR Influenza A (RT-PCR) Influenza B (RT-PCR) M. pneumoniae (PCR) Parainfluenza 1 (PCR) Parainfluenza 2 (PCR) Parainfluenza 3 (PCR) Parainfluenza 4 (PCR) RSV (PCR) Entero/Rhino (PCR) SARS-CoV-2 RNA (RT-PCR) 05/20/23 05/20/23 05/20/23 04:35 05:46 08:34 WBC 7.6 RBC 5.46 Hgb 15.0 Hct 46.3 MCV 84.8 MCH 27.5 MCHC 32.4 RDW 15.0 Plt Count 235 MPV 8.8 L Immature Gran % (Auto) 0.9 H Neut % (Auto) 85.9 H Lymph % (Auto) 9.8 L [place] % (Auto) 3.1 Eos % (Auto) 0.0 Baso % (Auto) 0.3 Lymph # (Auto) 0.8 L [place] # (Auto) 0.2 Eos # (Auto) 0.0 Baso # (Auto) 0.0 Abs Immat Gran (auto) 0.07 H Absolute Neuts (auto) 6.5 Absolute Nucleated RBC 0.000 Nucleated RBC % (auto) 0.0 PT 12.9 INR 1.1 aPTT Heparin Protocol 58.7 D Sodium 138 Potassium 4.3 Chloride 104 Carbon Dioxide 23 Anion Gap 15 BUN 14 Creatinine 1.21 Estim Creat Clear Calc 81.6 Estimated GFR > 60 Random Glucose 162 H Calcium 9.1 Magnesium Respiratory Panel Gonzalez See Note Adenovirus (Rapid PCR) Not Detected B.pert (TEM-PCR) Not Detected B.parapertussis DNA PCR Not Detected C. pneumoniae DNA (PCR) Not Detected Coronavirus OC43 (PCR) Not Detected Coronavirus HKU1 (PCR) Not Detected Coronavirus 229E (PCR) Not Detected Coronavirus NL63 (PCR) Not Detected Human Metapneumovir PCR Not Detected Influenza A (RT-PCR) Not Detected Influenza B (RT-PCR) Not Detected M. pneumoniae (PCR) Not Detected Parainfluenza 1 (PCR) Not Detected Parainfluenza 2 (PCR) Not Detected Parainfluenza 3 (PCR) Not Detected Parainfluenza 4 (PCR) Not Detected RSV (PCR) Not Detected Entero/Rhino (PCR) Detected A SARS-CoV-2 RNA (RT-PCR) Not Detected Discharge Plan Discharge Anticipated Discharge Date/Time: 05/20/23 16:12 Patient Disposition: Home, Self-Care Discharge Diagnosis: copd, afib Referrals: Sophie Ching MD [Primary Care Provider] - 1 Week Discharge Medications: New Eliquis 5 mg Tablet 5 mg PO BID Qty: 180 0RF diltiazem HCl 240 mg Capsule,Extended Release 24hr 240 mg PO DAILY Qty: 90 0RF Protocol: Hold for SBP/HR < HOLD for SBP < : 90 HOLD for HR < : 60 prednisone 20 mg tablet 40 mg PO DAILY Qty: 10 0RF Continued (DME) blood pressure kit-extra large Kit See Rx Instructions .Route Qty: 1 0RF Rx Instructions: As directed Benadryl Allergy 50 mg tablet 50 mg PO BEDTIME guaifenesin [Mucinex] 600 mg tablet extended release 12hr 600 mg PO BID amlodipine 10 mg tablet 10 mg PO DAILY Qty: 90 1RF cholecalciferol (vitamin D3) 25 mcg (1,000 unit) tablet 25 mcg PO DAILY Qty: 90 1RF albuterol sulfate [Ventolin HFA] 90 mcg/actuation HFA aerosol inhaler 2 puff inhalation Q6H PRN (Reason: shortness of breath or wheezing) 30 Days Qty: 8 6RF acetaminophen [Arthritis Pain Relief (acetam)] 650 mg tablet extended release 650 mg PO Q8H PRN (Reason: pain) Qty: 60 1RF capsaicin [Salonpas-Hot] 0.025 % adhesive patch,medicated 1 patch topical TID PRN (Reason: pain) Qty: 15 0RF Rx Instructions: do not leave patch on for more than 8 hrs Discharge Orders: Discharge Order (Routine); Ordered 05/20/23 Ordered By: Charles Alfaro Diet: Advance to usual diet Activity on Discharge: As tolerated Stand Alone Forms: Patient Portal Discharge page Care Plan Goals: manage afib Health Concerns: afib Plan of Treatment: start eliquis and cardizem, follow up with cardiology no etoh finish prednisone course Assessment: see above
[2023-05-20 16:55] VITALS: BP 138/86; PULSE 81; RESP 20; TEMP -17.7; TEMP 0; O2SAT 94
== END 2023-05-20 16:45 | disposition home or self-care (01) | DRG 140 ==
LOC: HO.ED 16:42 → HO.EDOVER 18:55 → HO.IMC 05-20 15:34
PROVIDERS: Admitting Provider Physician Assistant; Emergency Provider Student in an Organized Health Care Education/Training Program; PCP Internal Medicine; Visit Provider Internal Medicine
DX: J44.1 Chronic obstructive pulmonary disease with (acute) exacerbation (principal); Z68.43 Body mass index [BMI] 50.0-59.9, adult; I48.91 Unspecified atrial fibrillation; J06.9 Acute upper respiratory infection, unspecified; F10.20 Alcohol dependence, uncomplicated; E66.01 Morbid (severe) obesity due to excess calories; Z71.3 Dietary counseling and surveillance; Z71.41 Alcohol abuse counseling and surveillance of alcoholic; Z20.822 Contact with and (suspected) exposure to COVID-19; Z87.891 Personal history of nicotine dependence; Z79.899 Other long term (current) drug therapy
CPT/HCPCS: 0241U; 36415; 71046; 80048; 80053; 83735; 83880; 84443; 84484; 85025; 85027; 85610; 85730; 87633; 93005; 93306; 99285; J1644; J2920; Q9957

== ENCOUNTER 2023-05-19 18:42 | Outpatient (BNV) | payer OTHER, SELFPAY | END 2023-05-20 07:00 | PROVIDERS: Admitting Provider Physician Assistant; Emergency Provider Student in an Organized Health Care Education/Training Program; PCP Internal Medicine; Visit Provider Internal Medicine Cardiovascular Disease | DX: I48.91 Unspecified atrial fibrillation (principal) | CPT/HCPCS: 93306 ==

== ENCOUNTER → 2023-05-19 18:42 | Outpatient (BNV) | payer OTHER, SELFPAY | PROVIDERS: Admitting Provider Physician Assistant; Emergency Provider Student in an Organized Health Care Education/Training Program; PCP Internal Medicine; Visit Provider Internal Medicine Cardiovascular Disease | DX: J44.1 Chronic obstructive pulmonary disease with (acute) exacerbation (principal); I48.91 Unspecified atrial fibrillation | CPT/HCPCS: 93010; 99222 ==

== ENCOUNTER → 2023-05-19 18:42 | Outpatient (BNV) | payer OTHER, SELFPAY | PROVIDERS: Admitting Provider Physician Assistant; Emergency Provider Student in an Organized Health Care Education/Training Program; PCP Internal Medicine; Visit Provider Physician Assistant | DX: J44.1 Chronic obstructive pulmonary disease with (acute) exacerbation (principal); I48.91 Unspecified atrial fibrillation | CPT/HCPCS: 99223; 99232; 99239 ==

== ENCOUNTER 2023-05-27 13:54 | Outpatient (AMB) | payer OTHER, SELFPAY ==
[2023-05-27 13:55] VITALS: BP 150/82; PULSE 105; O2SAT 95; BMI 50.2
--- NOTE | 2023-05-27 13:55 | MHC.PC.OV ---
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 Accompanied by: Self / Same As Patient Allergies No Known Allergies Allergy (Verified 05/27/23 14:14) Medication List - Last Reconciled 05/27/23 by Sophie Lozano MD acetaminophen ER (Arthritis Pain Relief (acetaminophen) ER) 650 mg PO Q8H PRN amlodipine 10 mg PO DAILY apixaban (Eliquis) 5 mg PO BID blood pressure kit-extra large As directed capsaicin 0.025% (Salonpas-Hot) 1 patch topical TID PRN cholecalciferol (vitamin D3) 25 mcg PO DAILY diltiazem HCl CD 240 mg See Protocol PO DAILY diphenhydramine HCl (Benadryl Allergy) 50 mg PO BEDTIME guaifenesin ER (Mucinex) 600 mg PO BID Ventolin HFA 90 mcg/actuation (albuterol sulfate) 2 puffs inhalation Q6H PRN 30 days NS Tobacco use date assessed: 04/28/23 Dental Screening Dental Screen Date: 04/28/23 HPI HPI Comments History of Present Illness Details This is a 57-year-old male with hypertension, asthma and morbid obesity that comes today as hospital discharge follow-up with discharge date 05/20/2023 due to new onset atrial fibrillation. He was having some nasal congestion and upper respiratory symptoms and went to urgent care which found out he had atrial fibrillation with rapid ventricular response and was sent to emergency room. He drinks about 3-6 beer or hard liquor twice a week and I recommended to cut down on drinking alcohol. I also advised to start taking decaf coffee. He is heart rate when he went to the hospital was from 120-140. EKG showed atrial fibrillation. Was placing diltiazem IV drip and heparin drip. While admitted heart rate was control. IV heparin was transition to Eliquis. Echocardiogram was unremarkable. Cardiology was consulted and they change Cardizem IV to orally. Blood pressure elevated today and he does not remember if he took his amlodipine. Blood pressure will be recheck in 3 weeks by nurse navigator. He is rescue inhaler less than once a month. He is morbidly obese with a BMI of 50.2 and was advised to do diet and exercise as tolerated to reach BMI goal less than 30. He was also advised to stay out of stressful situations. While in the hospital he was negative for COVID, RSV and flu but positive for rhinovirus. Nasal congestion and upper respiratory symptoms resolved [facility] Medical History (Updated 05/27/23 @ 15:00 by Sophie Lozano MD) Morbid obesity with BMI of 45.0-49.9, adult Encounter to establish care Foreign body (FB) in soft tissue HTN (hypertension) Cellulitis Surgical History History of wisdom tooth extraction Family History Other No family history of coronary artery disease Social History Housing: House Alcohol intake: current Alcohol intake frequency: a few times a week Alcohol type: beer, hard liquor and other Patient Tobacco Use Status: Former Tobacco user Tobacco use type: Cigarette e-Cigarette/Vaping Use: Never Used Second Hand Smoke Exposure: No Substance Use Type: Marijuana service: No Current occupational status: other Cognitive needs: No Hearing needs: No Vision needs: Yes Questionnaire Thrive Questionnaire Date Thrive assessed: 09/22/22 NOBLE-7 AMB Questionnaire NOBLE-7 Date NOBLE - 7 assessed: 04/28/23 Source: Developed by Drs. Jeffrey Menjivar, Heather Coulter, Torres Diaz and colleagues, with an educational channing from [employer]. Review of Systems Const All systems reviewed & are unremarkable except as noted in HPI and below Eyes Reports no additional complaints, Denies change in vision and Denies other visual disturbances Card Denies chest pain at rest, Denies chest pain with activity, Denies edema, Denies irregular heart rhythm, Denies claudication, Denies dyspnea, Denies dyspnea on exertion, Denies orthopnea, Denies paroxysmal nocturnal dyspnea and Denies slow heart rate Resp Denies cough, Denies dyspnea and Denies dyspnea on exertion GI Denies abdominal pain, Denies change in bowel habits, Denies excessive flatus, Denies nausea and Denies vomiting Denies urinary hesitancy, Denies urinary incontinence and Denies urinary urgency Physical exam (Primary Care) Vital Signs: Last Vital Signs Pulse 105 H 05/27/23 13:55 BP 150/82 H 05/27/23 13:55 Pulse Ox 95 05/27/23 13:55 Oxygen Delivery Method Room Air 05/27/23 13:55 BMI result Body Mass Index 50.2 Tobacco/Smoking Status: Tobacco use Status Tobacco use date assessed 04/28/23 05/27/23 14:03 Patient Tobacco Use Status Former Tobacco user 05/27/23 14:03 Tobacco use type Cigarette 05/27/23 14:24 e-Cigarette/Vaping Use Never Used 05/27/23 14:03 Thrive Assessment: Date of Thrive Assessment Date Thrive assessed 09/22/22 05/27/23 14:03 HENMT Head: Yes normal to inspection, Yes normocephalic and Yes atraumatic Ears: external ears normal Resp Effort & Inspection: normal respiratory effort Auscultation: clear to auscultation bilaterally Cardio Jugular venous distension: no JVD Rate: regular rate Rhythm: regular rhythm Heart sounds: S1 normal heart sound present and S2 normal heart sound present Extrem General: Yes full ROM Assessment and Plan Assessment & Plan (1) Hospital discharge follow-up: Code(s): Z09 - Encounter for follow-up examination after completed treatment for conditions other than malignant neoplasm Plan: Discharge date 05/20/2023 due to atrial fibrillation with rapid ventricular response. EKG confirmed atrial fibrillation. Had Cardizem IV drip which was changed to oral Cardizem. Had IV heparin which was changed to oral Eliquis. Feels markedly improved. (2) New onset atrial fibrillation: Code(s): I48.91 - Unspecified atrial fibrillation Plan: Continue Cardizem and Eliquis. Referred to cardiology. (3) Obesity, morbid, BMI 50 or higher: Code(s): E66.01 - Morbid (severe) obesity due to excess calories Plan: Start diet and exercise. BMI goal is less than 30. (4) HTN (hypertension): Code(s): I10 - Essential (primary) hypertension Plan: Continue amlodipine. Blood pressure goal is equal or less than 130/80. (5) Asthma: Code(s): J45.909 - Unspecified asthma, uncomplicated Plan: Use rescue inhaler as needed. Coding Level of Care Code TCM Mod MDM <= 7 Days Diagnoses Hospital discharge follow-up Z09 New onset atrial fibrillation I48.91 Obesity, morbid, BMI 50 or higher E66.01 HTN (hypertension) I10 Asthma J45.909 Time Spent (min) 28
== END 2023-05-27 14:35 | disposition home or self-care (01) ==
PROVIDERS: PCP Internal Medicine; Visit Provider Internal Medicine
DX: I48.91 Unspecified atrial fibrillation (principal); I10 Essential (primary) hypertension; J45.909 Unspecified asthma, uncomplicated
CPT/HCPCS: 99214

== ENCOUNTER 2023-07-01 09:50 | Outpatient (AMB) | payer OTHER, SELFPAY ==
[2023-07-01 10:01] VITALS: BP 140/70; PULSE 85; BMI 50.0
--- NOTE | 2023-07-01 10:01 | MHC.OFFVIS ---
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 Accompanied by: Self / Same As Patient Allergies No Known Allergies Allergy (Verified 05/27/23 14:14) Medication List - Last Reconciled 07/01/23 by ALIS Harrell acetaminophen ER (Arthritis Pain Relief (acetaminophen) ER) 650 mg PO Q8H PRN amlodipine 10 mg PO DAILY apixaban (Eliquis) 5 mg PO BID blood pressure kit-extra large As directed capsaicin 0.025% (Salonpas-Hot) 1 patch topical TID PRN cholecalciferol (vitamin D3) 25 mcg PO DAILY diltiazem HCl CD 240 mg See Protocol PO DAILY diphenhydramine HCl (Benadryl Allergy) 50 mg PO BEDTIME guaifenesin ER (Mucinex) 600 mg PO BID Ventolin HFA 90 mcg/actuation (albuterol sulfate) 2 puffs inhalation Q6H PRN 30 days NS HPI HPI 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 He was referred for to the emergency room where he was found to have new onset atrial fibrillation. He was treated with heart rate control and started on Eliquis for anticoagulation. Today he reports he has been doing well since his ER visit in April. He denies having any heart palpitations, rapid heartbeats. Has no chest discomfort at rest or with activity. He does have shortness of breath with exertion which he states is because of his weight. He does not engage in any routine exercise. He denies lightheadedness, presyncope, syncope, falls. No PND, orthopnea or edema. Has been taking his meds as directed. 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 He says that he never had a sleep study in the past and would never wear a mask to sleep with. He continues to drink daily alcohol, 2-3 drinks per night which is down to 9 per night. [facility] Medical History (Updated 07/01/23 @ 11:20 by ALIS Harrell) Morbid obesity with BMI of 45.0-49.9, adult Encounter to establish care Foreign body (FB) in soft tissue HTN (hypertension) Cellulitis Surgical History History of wisdom tooth extraction Family History Other No family history of coronary artery disease Social History Housing: House Alcohol intake: current Alcohol intake frequency: a few times a week Alcohol type: beer, hard liquor and other Patient Tobacco Use Status: Former Tobacco user Tobacco use type: Cigarette e-Cigarette/Vaping Use: Never Used Second Hand Smoke Exposure: No Substance Use Type: Marijuana service: No Current occupational status: other Cognitive needs: No Hearing needs: No Vision needs: Yes Review of Systems Const All systems reviewed & are unremarkable except as noted in HPI and below Denies chills, Denies fatigue, Denies fever(s), Denies frequent falls, Denies weakness, Denies weight gain and Denies weight loss ENT Denies dizziness Card Denies chest pain, Denies leg edema, Denies lightheadedness, Denies palpitations, Denies dyspnea and Reports dyspnea on exertion Resp Denies cough, Denies dyspnea and Reports dyspnea on exertion GI Denies hematochezia Musc Denies abnormal gait, Denies muscle weakness, Denies numbness, Denies radiating pain into limb and Denies tingling Neuro Denies abnormal gait, Denies dizziness, Denies frequent falls, Denies numbness, Denies tingling and Denies weakness Endo Denies fatigue and Denies palpitations Physical Exam Vital Signs: Last Vital Signs Pulse 85 07/01/23 10:01 BP 140/70 H 07/01/23 10:01 BMI result Body Mass Index 50.0 Const Other: morbidly obese General: comfortable and no acute distress Orientation/consciousness: patient oriented x3 Neck Neck: Yes normal visual inspection Resp Effort & Inspection: normal respiratory effort Auscultation: clear to auscultation bilaterally (diminished), no crackles, no rales, no rhonchi and no wheezes Cardio Rate: regular rate Rhythm: abnormal rhythm Heart sounds: S1 normal heart sound present, S2 normal heart sound present, no murmurs and no rubs GI Other: abdominal obesity Neuro General: patient oriented x3 Extrem General: Yes normal to inspection and No no pedal edema Psych Appearance: grossly normal Mental Status: mental status grossly normal Speech and movement: Normal speech and movement present Office Procedures EKG Details: Today, read by me, atrial fibrillation, right axis deviation, rate 78, QTC 437 milliseconds [id number], Complete Assessment & Plan Assessment & Plan (1) Atrial fibrillation, new onset: Code(s): I48.91 - Unspecified atrial fibrillation Category: Medical Plan: New finding of atrial fibrillation, asymptomatic 05/19/2023. He would gone to urgent Care with a sore throat and irregular heart rhythm was identified. EKG in the emergency room shows atrial fibrillation with rapid ventricular response, nonspecific ST and T-wave abnormality, rate 137. Echocardiogram showed EF 60-65%, normal RV size and function, mildly dilated sinus of Valsalva 4.4 cm and ascending aorta 4.5 cm. He was put on diltiazem 240 mg daily. Chads Vasc score of 1 with hypertension. He was put on Eliquis 5 mg b.i.d. for anticoagulation. He tells me he has been taking his meds without interruption. Bleeding issues reported. EKG done today showing atrial fibrillation with right axis deviation, rate 78. He denies any concerning symptoms. He does have shortness of breath with exertion which he says has been long-term. His morbid obesity and sedentary type lifestyle can not account for this symptom. He does not appear fluid overloaded on exam though his obesity makes this assessment more challenging. Discussed plan for cardioversion to help restore normal rhythm. Details of the procedure, risks and possible outcomes reviewed. He is agreeable to proceed. No med changes made. Cardioversion will be scheduled with Dr. Rice in the near future. Cardiology follow-up 2 weeks following procedure, sooner if needed (2) Alcohol use: Code(s): Z78.9 - Other specified health status Category: Social Hx Plan: Patient reports drinking 2-3 alcoholic drinks per night. This is reduction from 8-9 drinks per night. Informed him that alcohol can contribute to the frequency and tendency to have atrial fibrillation. (3) Morbid obesity with BMI of 45.0-49.9, adult: Code(s): E66.01 - Morbid (severe) obesity due to excess calories; Z68.42 - Body mass index [BMI] 45.0-49.9, adult Category: Medical Plan: Patient is morbidly obese. He likely has obstructive sleep apnea based on his body habitus. He says he never had a sleep study and declines 1 at this time. He says he would never sleep with a mask if it was required. Informed him that untreated sleep apnea can contribute to atrial fibrillation as well. Plan Time spent on chart review, documentation, interview and assessment Orders: Orders Cardioversion Today I48.91 - Unspecified atrial fibrillation Coding Level of Care Code Est Pt Level 4 (05432) Diagnoses Atrial fibrillation, new onset I48.91 Alcohol use Z78.9 Morbid obesity with BMI of 45.0-49.9, adult E66.01; Z68.42 CPT Codes EKG - CPT: [id number], Complete ([id number]) Time Spent (min) 36
== END 2023-07-01 10:57 | disposition home or self-care (01) ==
PROVIDERS: PCP Internal Medicine; Visit Provider Internal Medicine
DX: I48.91 Unspecified atrial fibrillation (principal); Z78.9 Other specified health status; E66.01 Morbid (severe) obesity due to excess calories; Z68.42 Body mass index [BMI] 45.0-49.9, adult
CPT/HCPCS: 93010; 99214

== ENCOUNTER → 2023-07-01 09:50 | Outpatient (BNVA) | payer OTHER, SELFPAY | PROVIDERS: PCP Internal Medicine; Visit Provider Internal Medicine | DX: I48.91 Unspecified atrial fibrillation (principal); E66.01 Morbid (severe) obesity due to excess calories; Z78.9 Other specified health status; Z68.43 Body mass index [BMI] 50.0-59.9, adult; R94.31 Abnormal electrocardiogram [ECG] [EKG] | CPT/HCPCS: 93005; 99212 ==

== ENCOUNTER 2023-07-26 11:47 | Day surgery (SDC) | payer OTHER, SELFPAY ==
[2023-07-26] VITALS (7 sets, daily range): BP systolic 100–173; BP diastolic 55–96; PULSE 78–90; RESP 14–24; TEMP 36.1–36.8; O2SAT 85–97; BMI 50.2
--- NOTE | 2023-07-26 13:08 | P.CONAN_ITS ---
[facility] Active Problems Active Problems: All Active Problems Morbid obesity with BMI of 45.0-49.9, adult (Acute) Alcohol use (Acute) Asthma (Acute) Hospital discharge follow-up (Acute) COPD exacerbation (Acute) URI (upper respiratory infection) (Acute) Atrial fibrillation, new onset (Acute) New onset atrial fibrillation (Acute) Acute bacterial bronchitis (Acute) Tachycardia (Acute) Obesity, morbid, BMI 50 or higher (Acute) Bronchitis (Acute) Acromioclavicular joint arthritis (Acute) Glenohumeral arthritis (Acute) Hypertriglyceridemia (Acute) Adult general medical exam (Acute) History of nicotine dependence (Acute) Colonoscopy refused (Acute) Screening for prostate cancer (Acute) Low vitamin D level (Acute) Lumbar spondylosis (Acute) Insomnia (Acute) Left shoulder pain (Acute) Back pain (Acute) HTN (hypertension) (Acute) Scoliosis (Acute) Varicose veins of left lower extremity with inflammation (Acute) Varicose veins of right lower extremity with inflammation (Acute) Past Medical History Medical History (Updated 07/01/23 @ 11:20 by Lorena Renee NP-C) Morbid obesity with BMI of 45.0-49.9, adult Encounter to establish care Foreign body (FB) in soft tissue HTN (hypertension) Cellulitis Family History Family History Other No family history of coronary artery disease Family history of problems with anesthesia: No Surgical History Surgical History History of wisdom tooth extraction History of Problems with Anesthesia: No Social History Social History (Updated 07/09/23 @ 14:44 by Kelsey Garcia RN) Housing: House Alcohol intake: current Alcohol intake frequency: a few times a week Alcohol type: beer, hard liquor and other Patient Tobacco Use Status: Former Tobacco user Tobacco use type: Cigarette e-Cigarette/Vaping Use: Never Used Second Hand Smoke Exposure: No Substance Use Type: Marijuana Advance Directives: No Advance Directives Information Provided: Yes service: No Current occupational status: other Cognitive needs: No Hearing needs: No Vision needs: Yes Meds Allergies Allergy/AdvReac Type Severity Reaction Status Date / Time No Known Allergies Allergy Verified 05/27/23 14:14 Active Medications: Current Medications Lactated Ringer's (Lr) 1,000 mls @ 100 mls/hr IVCONT .Q10H NASH Home Medications ?Medication ?Instructions ?Recorded ?Confirmed ?Last Taken ?Type diphenhydramine HCl 50 mg tablet 50 mg PO BEDTIME sleep 05/19/23 07/26/23 05/18/23 History (Benadryl Allergy) guaifenesin 600 mg tablet, 600 mg PO BID 05/19/23 07/26/23 05/19/23 History extended release 12 hr (Mucinex) diphenhydramine HCl 50 mg tablet 50 mg PO BEDTIME 07/09/23 07/26/23 Unknown History (Benadryl Allergy) Exam Airway Mallampati Class: IV TM Dist: <=3cm Neck ROM: Limited (due to excess neck tissue) Loose/Missing/Broken Teeth: No Heart: irr rate rhythm Lungs: distant but clear Assessment and Plan Assessment Anesthesia Assessment: Anesthesia Plan Discussed and Chart Reviewed Final Anesthetic Review Family History of Problems with Anesthesia: No History of Problems with Anesthesia: No NPO: Yes ASA Class: III Final Preanesthetic Review: No Changes in Pt Med Stat, Meds/Allgs Chart Reviewed, Consent Obtained/Reviewed and Anes Risks/Benef Reviewed Patient Risk: High Procedure Risk: Intermediate Anesthetic Plan Anesthetic Plan: TIVA Disposition: Standard PACU
--- NOTE | 2023-07-26 13:15 | MHC.SHP ---
Pre-Procedural Eval Section A - 24 Hr Update-Section A only Date of Service: 07/26/23 The patient is an INPATIENT: No Changes since office visit: Yes New Medical Problems and Yes Patient answered all questions; No Cold of Flu in the past 2 weeks and No Changes in Medication The patient has been examined within 24 hours of the surgical procedure. The History & Physical has been completed within 30 days and I have reviewed it.: Yes Section B - Complete if H&P > 30 days Chief Complaint: Unspecified atrial fibrillation Allergies: Allergies Allergy/AdvReac Type Severity Reaction Status Date / Time No Known Allergies Allergy Verified 05/27/23 14:14 Plan I have reviewed the history and physical and performed a pertinent physical examination on my patient. No changes have occurred unless specified. Time Spent With Patient Time: Total time managing care of this patient today ____ minutes.
[2023-07-26] MEDS: Lactated Ringers 1,000 ML 100 ML IVCONT (13:23)
--- NOTE | 2023-07-26 14:36 | HO.CARDIVERS ---
Cardioversion Procedure Note Cardioversion Date of Procedure: 07/26/2023 Ordering Provider: Lorena Renee Performing Provider: Kareen Dobson Indication for Procedure: Persistent AF Pre-Op Diagnosis: Same Performed with Transesophageal Echo: No History: See office note Consent: Verbal and Written consent was obtained from the patient before starting and after confirming OAC use. The patient was made aware of the risk of Synchonized CV including neenfits and alternatives Procedure: After consent obtained, cardioversion pads were attached in AP configuration and the patient was sedated by the anesthesia team. Once adequate sedation achieved, patient was delivered 200 J of biphasic synchronized energy in AP configuration twice. Complications: None Impression: Unsuccessful conversion to sinus rhythm Recommendations: 1. Continue with full oral anticoagulation and rate control 2. Follow up in the office
== END 2023-07-26 15:51 | disposition home or self-care (01) ==
PROVIDERS: PCP Internal Medicine; Visit Provider Internal Medicine Cardiovascular Disease
PROC: 5A2204Z Restoration of Cardiac Rhythm, Single (ICD-10-PCS; principal; 2023-07-26 13:30)
DX: I48.19 Other persistent atrial fibrillation (principal); I10 Essential (primary) hypertension; Z79.01 Long term (current) use of anticoagulants; Z79.899 Other long term (current) drug therapy
CPT/HCPCS: 92960; J1596; J2704

== ENCOUNTER → 2023-07-26 11:47 | Outpatient (BNV) | payer OTHER, SELFPAY | PROVIDERS: PCP Internal Medicine; Visit Provider Internal Medicine Cardiovascular Disease | DX: I48.19 Other persistent atrial fibrillation (principal) | CPT/HCPCS: 92960 ==

== ENCOUNTER → 2023-08-04 13:13 | Outpatient (BNV) | payer OTHER, SELFPAY | PROVIDERS: PCP Internal Medicine; Visit Provider Internal Medicine | DX: I48.91 Unspecified atrial fibrillation (principal) | CPT/HCPCS: 93244 ==

== ENCOUNTER → 2023-08-04 13:55 | Outpatient (REF) | payer OTHER, SELFPAY ==
--- NOTE | 2023-08-04 13:13 | HM_ITS ---
* Total monitoring time 3 days. * Underlying rhythm is atrial fibrillation with an average rate of 82/Min. About 10% of the time, rate > 100/Min. * Rare ventricular ectopy with some couplets. * No significant pauses/AV blocks. * No patient markers or diary events. MTDD
== END ==
LOC: HO.CARD 13:55
PROVIDERS: PCP Internal Medicine; Visit Provider Nurse Practitioner Family
DX: I48.91 Unspecified atrial fibrillation (principal)
CPT/HCPCS: 93242

== ENCOUNTER 2023-09-09 15:18 | Outpatient (AMB) | payer OTHER, SELFPAY ==
[2023-09-09 15:27] VITALS: BP 152/80; PULSE 91; BMI 51.2
--- NOTE | 2023-09-09 15:27 | A.OFFVIS_ITS ---
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: No Allergies No Known Allergies Allergy (Verified 09/09/23 15:30) Medication List - Last Reconciled 09/09/23 by ALIS Harrell acetaminophen ER (Arthritis Pain Relief (acetaminophen) ER) 650 mg PO Q8H PRN amlodipine 10 mg PO DAILY apixaban (Eliquis) 5 mg PO BID blood pressure kit-extra large As directed capsaicin 0.025% (Salonpas-Hot) 1 patch topical TID PRN cholecalciferol (vitamin D3) 25 mcg PO DAILY diltiazem HCl CD 240 mg See Protocol PO DAILY diphenhydramine HCl (Benadryl Allergy) 50 mg PO BEDTIME diphenhydramine HCl (Benadryl Allergy) 50 mg PO BEDTIME guaifenesin ER (Mucinex) 600 mg PO BID Ventolin HFA 90 mcg/actuation (albuterol sulfate) 2 puffs inhalation Q6H PRN 30 days NS HPI HPI 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 He was anticoagulated and treated for heart rate control and then underwent a cardioversion without success. Holter monitor was done any now presents for follow-up. Today he reports that he is frustrated over his health condition and treatment plan. He is not interested in any further medication changes. He does not want a repeat cardioversion. He spoke with a friend who had AFib and underwent an ablation and is now cured. 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 He does not want any visits or tests in September. He has chronic shortness of breath and fatigue with exertional activities. He denies having any heart palpitations, rapid heartbeats. Has no chest discomfort at rest or with activity. He does not engage in any routine exercise. He denies lightheadedness, presyncope, syncope, falls. No PND, orthopnea. He is chronic issues with his lower extremities, swelling and skin problems. Has been taking his meds as directed. No bleeding issues reported. 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 He says that he never had a sleep study in the past and would never wear a mask to sleep with. He has been working on alcohol reduction. He is down to 3-4 drinks 3 to 4 times a week. He initially was having 9 per night. [facility] Medical History Morbid obesity with BMI of 45.0-49.9, adult Encounter to establish care Foreign body (FB) in soft tissue HTN (hypertension) Cellulitis Surgical History History of wisdom tooth extraction Family History Other No family history of coronary artery disease Social History Housing: House Alcohol intake: current Alcohol intake frequency: a few times a week Alcohol type: beer, hard liquor and other Patient Tobacco Use Status: Former Tobacco user Tobacco use type: Cigarette e-Cigarette/Vaping Use: Never Used Second Hand Smoke Exposure: No Substance Use Type: Marijuana service: No Current occupational status: other Cognitive needs: No Hearing needs: No Vision needs: Yes Review of Systems Const All systems reviewed & are unremarkable except as noted in HPI and below ENT Denies dizziness Card Denies chest pain, Denies chest pain at rest, Denies chest pain with activity, Denies rapid heart rate, Denies pedal edema, Denies edema, Reports leg edema, Denies lightheadedness, Denies palpitations, Denies dyspnea, Reports dyspnea on exertion and Denies orthopnea Resp Denies cough, Denies dyspnea and Reports dyspnea on exertion GI Denies hematochezia and Denies change in stool character Musc Details: chronic issues with leg swelling and skin of lower extremities Denies abnormal gait, Denies limited range of motion, Denies muscle cramps, Denies muscle weakness, Denies numbness, Denies radiating pain into limb, Denies stiffness and Denies tingling Neuro Denies abnormal gait, Denies dizziness, Denies numbness and Denies tingling Endo Denies palpitations Physical Exam Vital Signs: Last Vital Signs Pulse 91 09/09/23 15:27 BP 152/80 H 09/09/23 15:27 BMI result Body Mass Index 51.2 Const Other: morbidly obese General: comfortable and no acute distress Orientation/consciousness: patient oriented x3 Neck Neck: Yes normal visual inspection Resp Effort & Inspection: normal respiratory effort Auscultation: clear to auscultation bilaterally (diminished), no crackles, no rales, no rhonchi and no wheezes Cardio Rate: regular rate Rhythm: abnormal rhythm Heart sounds: S1 normal heart sound present, S2 normal heart sound present, no murmurs and no rubs GI Other: abdominal obesity Neuro General: patient oriented x3 Extrem Other: chronic LE swelling and skin impairments. Wearing long pants and I am only able to see his ankles. Appears to have venous stasis issues. General: No normal to inspection and Yes edema Psych Appearance: grossly normal Mental Status: mental status grossly normal Speech and movement: Normal speech and movement present Assessment & Plan Assessment & Plan (1) Atrial fibrillation, new onset: Code(s): I48.91 - Unspecified atrial fibrillation Category: Medical Plan: New finding of atrial fibrillation, asymptomatic 05/19/2023. Unknown chronicity. He had gone to urgent Care with a sore throat and irregular heart rhythm was identified. He was sent to the ER and EKG showed atrial fibrillation with rapid ventricular response, nonspecific ST and T-wave abnormality, rate 137. Echocardiogram showed EF 60-65%, normal RV size and function, left atrium mildly dilated, mildly dilated sinus of Valsalva 4.4 cm and ascending aorta 4.5 cm. He was put on diltiazem 240 mg daily. Chads Vasc score of 1 with hypertension. He was put on Eliquis 5 mg b.i.d. for anticoagulation. He tells me he has been taking his meds without interruption. No Bleeding issues reported. He does have shortness of breath with exertion which he says has been long-term. He underwent a cardioversion on 07/26/2023 which was unsuccessful. A Holter monitor done 08/04/2023 for 3 days shows atrial fibrillation with average heart rate 82, 10% of the time heart rate greater than 100. Today he reports no heart palpita tions. He is very frustrated over his current health issues. He would like his atrial fibrillation just taken care of and resolved. He is declining antiarrhythmic and repeat cardioversion. He is requesting referral for an ablation. He had a friend who had an ablation and is now cured. Informed him that I could send him for an EP evaluation for possible ablation but it is not guaranteed. He still may require anti arrhythmic, cardioversion, further testing. He does not want any appointments in September. He is hoping to have an EP appointment in October. At this time his AFib seems rate controlled. He can continue activity as tolerated. Instructed on the reduction in alcoholic beverages. Informed that alcohol can increase the presence of atrial fibrillation. Previously discussed the potential for sleep apnea and how that can also affect the heart and atrial fibrillation. He declined a sleep study and states he would never sleep with a mask. Patient is morbidly obese and the benefits of weight loss reviewed. Cardiology follow-up in this office 6 months, sooner if needed. (2) Alcohol use: Code(s): Z78.9 - Other specified health status Category: Medical Plan: Patient reports drinking 3-4 alcoholic drinks 3-4 times per week. This is reduction from 8-9 drinks per night. Informed him that alcohol can contribute to the frequency and tendency to have atrial fibrillation. (3) Morbid obesity with BMI of 45.0-49.9, adult: Code(s): E66.01 - Morbid (severe) obesity due to excess calories; Z68.42 - Body mass index [BMI] 45.0-49.9, adult Category: Medical Plan: Patient is morbidly obese. He likely has obstructive sleep apnea based on his body habitus. He says he never had a sleep study and declines 1 at this time. He says he would never sleep with a mask if it was required. Informed him that untreated sleep apnea can contribute to atrial fibrillation as well. (4) Ascending aorta dilatation: Code(s): I77.810 - Thoracic aortic ectasia Category: Medical Plan: Last echo as above showing dilated ascending aorta 4.5 cm, sinus of Valsalva 4.4 cm. Blood pressure control and weight loss are recommended. Patient declines any change to his medications at this time. (5) HTN (hypertension): Code(s): I10 - Essential (primary) hypertension Category: Medical Plan: Patient mildly agitated at this visit. Blood pressure is elevated at 152/80. He is on amlodipine and diltiazem. Informed him these are medications from the same category. He tells me that he is not going to have any of his medications changed at this time. He is feeling good and wants to leave it that way. Plan Time spent on chart review, documentation, interview and assessment Orders: Referrals Cardiac Electrophysiology Referral I48.91 - Unspecified atrial fibrillation Medications: Refilled diltiazem HCl CD 240 mg See Protocol PO DAILY 90 caps 1RF apixaban (Eliquis) 5 mg PO BID 180 tabs 1RF Coding Level of Care Code Est Pt Level 4 (21612) Diagnoses Atrial fibrillation, new onset I48.91 Alcohol use Z78.9 Morbid obesity with BMI of 45.0-49.9, adult E66.01; Z68.42 Ascending aorta dilatation I77.810 HTN (hypertension) I10 Time Spent (min) 36
== END 2023-09-09 16:07 | disposition home or self-care (01) ==
PROVIDERS: PCP Internal Medicine; Visit Provider Nurse Practitioner Family
DX: I48.91 Unspecified atrial fibrillation (principal); Z78.9 Other specified health status; E66.01 Morbid (severe) obesity due to excess calories; Z68.42 Body mass index [BMI] 45.0-49.9, adult; I77.810 Thoracic aortic ectasia; I10 Essential (primary) hypertension
CPT/HCPCS: 99214

== ENCOUNTER → 2023-09-09 15:18 | Outpatient (BNVA) | payer OTHER, SELFPAY | PROVIDERS: PCP Internal Medicine; Visit Provider Nurse Practitioner Family | DX: I10 Essential (primary) hypertension (principal); I48.91 Unspecified atrial fibrillation; I77.810 Thoracic aortic ectasia; E66.01 Morbid (severe) obesity due to excess calories; E78.5 Hyperlipidemia, unspecified; Z79.01 Long term (current) use of anticoagulants; Z87.891 Personal history of nicotine dependence; Z68.42 Body mass index [BMI] 45.0-49.9, adult | CPT/HCPCS: 99212 ==

== ENCOUNTER 2023-12-08 14:22 | Outpatient (AMB) | payer OTHER, SELFPAY ==
[2023-12-08 14:30] VITALS: BP 132/80; PULSE 93; O2SAT 97; BMI 49.8
--- NOTE | 2023-12-08 14:30 | MHC.PC.OV ---
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: No Accompanied by: Self / Same As Patient Allergies No Known Allergies Allergy (Verified 12/08/23 14:47) Medication List - Last Reconciled 12/08/23 by Sophie Lozano MD acetaminophen ER (Arthritis Pain Relief (acetaminophen) ER) 650 mg PO Q8H PRN apixaban (Eliquis) 5 mg PO BID blood pressure kit-extra large As directed capsaicin 0.025% (Salonpas-Hot) 1 patch topical TID PRN cholecalciferol (vitamin D3) 25 mcg PO DAILY diltiazem HCl CD 240 mg See Protocol PO DAILY diphenhydramine HCl (Benadryl Allergy) 50 mg PO BEDTIME lisinopril 10 mg PO DAILY Ventolin HFA 90 mcg/actuation (albuterol sulfate) 2 puffs inhalation Q6H PRN 30 days NS Tobacco use date assessed: 04/28/23 Dental Screening Dental Screen Date: 12/08/23 Did you have a dental visit in the last 12 months?: No Did you have a dental problem in the last 6 months where you did not have access to dental care?: No Was dental information given to patient?: Patient has dentist HPI HPI Comments History of Present Illness Details This is a 58-year-old male with atrial fibrillation and morbid obesity that comes today for his physical exam. He declines colonoscopy and Cologuard for screening for colon cancer. Declines flu vaccine. Atrial fibrillation is follow by cardiology. Was advised to cut down on drinking alcohol to 2 drinks per week per food and nutrition teacher. He still drinks alcohol in the weekend but said that has cut down. He is morbidly obese and has lost some weight. Has been having stressful situations that can aggravate his atrial fibrillation. Will have ablation in January. [facility] Medical History (Updated 12/08/23 @ 15:42 by Sophie Lozano MD) Obesity, morbid, BMI 50 or higher New onset atrial fibrillation COPD exacerbation Atrial fibrillation, new onset Morbid obesity with BMI of 45.0-49.9, adult Encounter to establish care Foreign body (FB) in soft tissue HTN (hypertension) Cellulitis Surgical History History of wisdom tooth extraction Family History (Updated 12/08/23 @ 14:54 by Sophie Lozano MD) Mother No problems noted. Father Cardiovascular disease Other No family history of coronary artery disease Social History Housing: House Alcohol intake: current Alcohol intake frequency: a few times a week Alcohol type: beer, hard liquor and other Patient Tobacco Use Status: Former Tobacco user Tobacco use type: Cigarette e-Cigarette/Vaping Use: Never Used Second Hand Smoke Exposure: No Substance Use Type: Marijuana service: No Current occupational status: other Cognitive needs: No Hearing needs: No Vision needs: Yes Questionnaire Thrive Questionnaire Date Thrive assessed: 09/22/22 NOBLE-7 AMB Questionnaire NOBLE-7 Date NOBLE - 7 assessed: 04/28/23 Source: Developed by Drs. Jeffrey Menjivar, Heather Coulter, Torres Diaz and colleagues, with an educational channing from [employer]. Review of Systems Const All systems reviewed & are unremarkable except as noted in HPI and below Card Denies chest pain at rest, Denies chest pain with activity, Denies edema, Denies irregular heart rhythm, Denies claudication, Reports dyspnea on exertion, Denies orthopnea, Denies paroxysmal nocturnal dyspnea and Denies slow heart rate Resp Reports dyspnea on exertion Physical exam (Primary Care) Vital Signs: Last Vital Signs Pulse 93 12/08/23 14:30 BP 132/80 12/08/23 14:30 Pulse Ox 97 12/08/23 14:30 Oxygen Delivery Method Room Air 12/08/23 14:30 BMI result Body Mass Index 49.8 BMI Assessment/Plan discussion: High BMI High, discussed plan: lifestyle, weight reduction, dietary and physical activity Tobacco/Smoking Status: Tobacco use Status Tobacco use date assessed 04/28/23 12/08/23 14:36 Patient Tobacco Use Status Former Tobacco user 12/08/23 14:36 Tobacco use type Cigarette 12/08/23 14:36 e-Cigarette/Vaping Use Never Used 12/08/23 14:36 Thrive Assessment: Date of Thrive Assessment Date Thrive assessed 09/22/22 12/08/23 14:36 [facility] Head: Yes normal to inspection, Yes normocephalic and Yes atraumatic Ears: external ears normal Eyes General: appearance normal, both eyes and all related structures Eyelids: Yes eyelids normal Conjunctivae: conjunctivae normal Neck Neck: Yes normal visual inspection and Yes supple Resp Effort & Inspection: normal respiratory effort Auscultation: clear to auscultation bilaterally Cardio Jugular venous distension: no JVD Rate: regular rate Rhythm: regular rhythm Heart sounds: S1 normal heart sound present and S2 normal heart sound present GI Inspection: Yes normal to inspection Palpation (GI): Soft to palpation and nontender Auscultation: normal bowel sounds Skin General skin exam: no rashes or lesions noted Neuro General: no focal motor deficits Extrem General: Yes full ROM Psych Appearance: grossly normal Office Procedures Flu Questionnaire Does the patient have a severe egg allergy?: No Immunizations Fluarix Triv [id number] (PF) 45 mcg (15 mcg x 3)/0.5 mL IM syringe Performing Provider: Sophie Lozano MD Performing [facility] [place] [facility] Documented (not given) by: NORM Farrell on 12/08/23 14:36 Reason Not Given: Patient Refused Coding Level of Care Code Est Pt Prev Care 40-64y(41654) Diagnoses Physical exam Z00.00 Atrial fibrillation I48.91 Morbid obesity with BMI of 45.0-49.9, adult E66.01; Z68.42 Time Spent (min) 32 Assessment & Plan Assessment & Plan (1) Physical exam: Code(s): Z00.00 - Encounter for general adult medical examination without abnormal findings Category: Medical Plan: Repeat in a year. (2) Atrial fibrillation: Code(s): I48.91 - Unspecified atrial fibrillation Category: Medical Plan: Continue diltiazem. Continue Eliquis. (3) Morbid obesity with BMI of 45.0-49.9, adult: Code(s): E66.01 - Morbid (severe) obesity due to excess calories; Z68.42 - Body mass index [BMI] 45.0-49.9, adult Category: Medical Plan: Start diet and exercise. BMI goal is less than 30. Orders: Orders Influenza [id number] Immunization Today Z23 - Encounter for immunization Comprehensive Met. Panel Today Z00.00 - Encounter for general adult medical examination without abnormal findings
== END 2023-12-08 15:08 | disposition home or self-care (01) ==
PROVIDERS: PCP Internal Medicine; Visit Provider Internal Medicine
DX: Z00.00 Encounter for general adult medical examination without abnormal findings (principal); I48.91 Unspecified atrial fibrillation; E66.01 Morbid (severe) obesity due to excess calories; Z68.42 Body mass index [BMI] 45.0-49.9, adult; Z23 Encounter for immunization

== ENCOUNTER → 2023-12-08 14:22 | Outpatient (BNVA) | payer OTHER, SELFPAY | PROVIDERS: PCP Internal Medicine; Visit Provider Internal Medicine | DX: Z00.01 Encounter for general adult medical examination with abnormal findings (principal); I48.91 Unspecified atrial fibrillation; E66.01 Morbid (severe) obesity due to excess calories; Z68.42 Body mass index [BMI] 45.0-49.9, adult; Z71.3 Dietary counseling and surveillance | CPT/HCPCS: 90471; 99396 ==

== ENCOUNTER 2023-12-13 14:57 | Outpatient (REF) | payer OTHER, SELFPAY ==
[2023-12-13 16:36] LABS: MANUAL DIFF FLAG NO
[2023-12-13 16:49] LABS: Basophils Percent Auto 0.6 % (0-2); Eosinophils Absolute Auto 0.1 X10*3/uL (0.0-0.4); Eosinophils Percent Auto 1.3 % (0-4); Hemoglobin 13.7 g/dl (14.0-18.0); Imm Gran Abs Auto 0.02 X10*3/uL (0.00-0.03); Imm Gran Pct Auto 0.4 % (0.0-0.4); Lymphocytes Absolute Auto 1.4 X10*3/uL (1.2-4.9); Lymphocytes Percent Auto 26.1 % (20-40); Mean Corpuscular HGB Conc 31.1 g/dl (31.0-36.0); Mean Corpuscular Hemoglobin 26.3 pg (27.0-33.0); Mean Corpuscular Volume 84.5 fL (80.0-98.0); Mean Platelet Volume 9.6 fL (9.4-12.4); Monocytes Absolute Auto 0.4 X10*3/uL (0.1-1.2); Monocytes Percent Auto 7.6 % (2-11); Neutrophils Absolute Auto 3.4 x10*3/uL (2.0-8.3); Platelet Count 228 X10*3/uL (160-400); Red Blood Count 5.21 X10*6/uL (4.60-5.80); Red Cell Distribution Width 15.9 % (11.0-16.0); White Blood Count 5.4 X10*3/uL (4.8-10.8)
[2023-12-13 17:12] LABS: Alanine Aminotransferase 24 U/L (0-40); Albumin Level 4.1 g/dL (3.5-5.0); Alkaline Phosphatase 51 U/L (39-117); Anion Gap 11 (12-20); Aspartate Amino Transferase 22 U/L (5-37); Bilirubin Total 0.4 mg/dL (0.0-1.0); Blood Urea Nitrogen 11 mg/dL (9-16); Calcium 9.1 mg/dL (8.4-10.2); Carbon Dioxide 28 mmol/L (22-29); Chloride 105 mmol/L (96-108); Cholesterol 179 mg/dL (<200); Estimated Glomerular Filt Rate > 60; Glucose Fasting 113 mg/dL (60-99); Glucose Random 114 mg/dL (60-115); HDL Cholesterol 38 mg/dL (>40); LDL Cholesterol Calculated 124 mg/dL (<100); Potassium 4.3 mmol/L (3.3-5.1); Sodium 140 mmol/L (135-145); Total Protein 7.5 g/dL (6.5-8.0); Triglycerides 86 mg/dL (<150)
[2023-12-13 17:19] LABS: Vitamin D 25-OH Total 30.9 ng/mL (>30)
== END 2023-12-13 14:58 | disposition home or self-care (01) ==
LOC: HO.HMGCLDS 14:57
PROVIDERS: Nurse Practitioner Family; PCP Internal Medicine; Visit Provider Internal Medicine
DX: Z00.00 Encounter for general adult medical examination without abnormal findings (principal); I10 Essential (primary) hypertension; E78.5 Hyperlipidemia, unspecified; E55.9 Vitamin D deficiency, unspecified
CPT/HCPCS: 36415; 80053; 80061; 82306; 85025

== ENCOUNTER 2024-04-04 13:25 | Outpatient (REF) | payer OTHER, SELFPAY ==
--- OUTSIDE RECORDS SUMMARY | 2024-04-04 14:35 | XMS_ITS | Data Portability ---
Author Organization [facility] [address] Address [address] [place] [address] Assessment No assessment recorded. Plan of Treatment Reminders Order Date Submit Date Provider Last Modified By Organization Details Last Modified Time Details Appointments None recorded. Lab None recorded. Referral None recorded. Procedures None recorded. Surgeries None recorded. Imaging None recorded. Medication Orders amlodipine 5 mg tablet 2022 023 [facility], [address] [place], [address], 3 16:02:11 amlodipine 5 mg tablet 2022 023 [facility], [address] [place], [address], 15:35:41 Patient TargetsNo targets recorded. Patient Instructions Encounter Date Encounter Id Patient Instructions Last Modified By Organization Details Last Modified Time 03/06/2022 [id number] high blood pressure: care instructions [email or web address] Not available 03/06/2022 16:02:08 07/03/2022 [id number] - As we discussed, you denied having any symptoms of your high blood pressure right now. Please follow up with your primary care provider as soon as possible to get further evaluation and - If you use tobacco or frequent alcohol use you should stop - weight loss can reduce blood pressure - 2 gram low-salt diet - continue medications as discussed your blood pressure is elevated you should follow-up with your Primary -doctor. - For any chest pain, shortness of breath, weakness or numbness to extremities, difficulty speaking, blurred vision, or headache unrelieved by medications you should go to Emergency room as this can be a medical emergency. [email or web address] Not available 07/03/2022 15:35:08 Reason for Referral None Reported. Problems Name Problem SNOMED Code Status Onset Date Resolution Date Notes Provider Name and Address Organization Details Recorded Time Essential hypertension 03941789 Active 2022 TEMI medina [place] - [facility] 3 15:37:35 Problem Notes None recorded. Medical Equipment None Reported. Allergies No known drug allergies Medications Name Sig Start Date Stop Date Status Note LastModified by Organization Details LastModified Time amlodipine 5 mg tablet TAKE ONE TABLET BY MOUTH EVERY DAY active Not Available Not Available No t Available doxycycline hyclate 100 mg tablet TAKE ONE TABLET BY MOUTH TWICE A DAY FOR 7 DAYS active Not Available Not Available No t Available melatonin active Not Available Not Josie ilable Not Available amlodipine 07/03 completed Not Available Not Available Not Available Vitals Date Recorded Body height Body mass index (BMI) Body weight Pain severity - 0-10 verbal numeric rating [Score] - Reported Respiratory rate Body temperature Heart rate Oxygen saturation Oxygen saturation in Arterial blood by Pulse oximetry Systolic blood pressure Diastolic blood pressure Provider Name and Address Organization Details Last Updated DateTime 3 177.8 cm 45.9 kg/m2 323919. 56 g 0 18 /min 97.1 [degF] 91 /min 97 % 97 % 130 mm[Hg] 84 mm[Hg] Mayra Montoya PA - [facility] 3 15:20:46 Date Recorded Body height Body mass index (BMI) Body weight Body temperature Respiratory rate Heart rate Oxygen saturation Oxygen saturation in Arterial blood by Pulse oximetry Systolic blood pressure Diastolic blood pressure Provider Name and Address Organization Details Last Updated DateTime 3 177.8 cm 50.2 kg/m2 459993. 33 g 98.1 [degF] 20 /min 88 /min 98 % 98 % 149 mm[Hg] 73 mm[Hg] TEMI Lam PA - [facility] 3 15:40:33 Social History Question Answer Notes LastModified by Organizat ion Details LastModified Time Tobacco Smoking Status Former Smoker TEMI medina PA - [facility] 03/06/2022 15:38:20 What Is Your Level Of Alcohol Consumption? Occasional Information not available 03/06/2022 How Many Times Per Week Do You Consume Alcohol? 1-2 Times Per Week Information not available 07/03/2022 When Did You Quit Smoking? 6-10yearssince lastcigarette Information not available 07/03/2022 What Is Your Water Source? City Information not available 03/06/2022 What Is Your Heat Source? Other Information not available 03/06/2022 Have You Had Direct Contact, Or Contact During Intimacy, With Monkeypox Rash, Scabs, Or Body Fluids From A Person With Monkeypox? No Information not available 03/06/2022 Do You Use Any Illicit Or Recreational Drugs? No Information not available 03/06/2022 Have You Recently Traveled Abroad? No Information not available 03/06/2022 Do You Or Have You Ever Used Any Other Forms Of Tobacco Or Nicotine? Yes Information not available 07/03/2022 Sex: Unknown Functional Status None recorded. Mental Status None recorded. Family History Relationship Description Onset Age of this Age Resolved Age Notes LastModified by Organization Details LastModified Time Father No current problems or disability Not available 15:37:38 Mother No current problems or disability Not available 15:37:38 Medical History No medical history recorded. Immunizations Vaccine Type Date Status Note Provider Nam e and Address Organization Details Recorded Time COVID-19, mRNA, LNP-S, PF, 100 mcg/0.5mL dose or 50 mcg/0.25mL dose 03/05/2021 completed [facility] 07/03/2022 15:18:17 COVID-19, mRNA, LNP-S, PF, 100 mcg/0.5mL dose or 50 mcg/0.25mL dose 06/15/2020 completed [facility] 07/03/2022 15:18:17 COVID-19, mRNA, LNP-S, PF, 100 mcg/0.5mL dose or 50 mcg/0.25mL dose 07/15/2020 completed [facility] 07/03/2022 15:18:17 Tdap 11/15/2021 completed [facility] 07/03/2022 15:18:18 Past Encounters Encounter ID Performer Location Encounter Start Date Encounter Closed Date Diagnosis/Indication Diagnosis SNOMED-CT Code Diagnosis ICD10 Code Diagnosis Note [id number] [address] [place] [address] 12/31/2021 13:10:06 12/31/2021 15:50:50 [id number] [facility] [address] [place] [address] 03/06/2022 14:08:02 03/06/2022 16:06:23 Essential hypertension 64937869 I10 BP well controlled on amlodipine per pt reportI will RF amlodipine Advised to establish care with PCPHe will need full lab panel to further assess his BP/health status Discussed concerning red flags with patient and reasons to follow up in the Emergency Department urgently. Patient expressed understand ing of and agreement with the plan as outlined above. [id number] Pete Mc SERVER SOFTWARE ENGINEER [address] [address] [place] [address] 07/03/2022 14:41:41 07/03/2022 15:37:22 Essential hypertension 72686531 I10 Health Concerns Section Related Observation LastModified by Organization Detai ls LastModified Time None Recorded Concern Status LastModified by Organization Details LastModified Time None Recorded Advance Directives Directive None Recorded Payers Encounter Date Sequence Insurance Name Policy Number Policy Padgett Covered Member ID Padgett Member ID Guarantor Name 12/31/2021 1 [facility] (MEDICAID HMO) [id number] Lion Haney [id number] Lion Haney 03/06/2022 1 [facility] (MEDICAID HMO) DINORAH Haney [id number] Lion Haney 03/06/2022 2 [place] [facility] Lion Haney [id number] Lion Haney 07/03/2022 1 [facility] - HEALTH NET [facility]AN (MEDICAID HMO) DINORAH Haney [id number] Lion Haney Notes Date Note Type Note Provider Name and Address Organization Details Recorded Time 03/06/2022 text/html Hypertension [facility] eported bypatient.Notes:56 yo maleran out of his BP medsBP usually well controlled with amlodipine 5 mgno adverse SEno Hano LH/dizzinessno CPno NOVAK/SOBno edema no PCP at this time - looking for new PCP Dennis Salomon DO [address] [place], [address], [place] - [facility] 03/06/2022 16:02:36 07/03/2022 text/html Hypertension [facility] eported bypatient.source of patient informationPatient arrived at Urgent Care ambulatory Quality:pressure Severity:mild Duration:has noted for years Onset/Timing:worse; gradual onset Context:exertion;emotio nal stress Alleviating Factors:relieved with rest Aggravating Factors:worse with activity Associated Symptoms:no shortness of breath; no fatigue; no palpitations; no decline in exercise capacity; no snoring Pete Mc NP [address] [place], [address], [place] [employer] [facility] 07/03/2022 15:36:08
[2024-04-04 16:19] LABS: MANUAL DIFF FLAG NO
[2024-04-04 16:35] LABS: Basophils Percent Auto 0.4 % (0-2); Eosinophils Percent Auto 0.4 % (0-4); Hematocrit 49.8 % (42.0-52.0); Hemoglobin 15.4 g/dl (14.0-18.0); Imm Gran Abs Auto 0.05 X10*3/uL (0.00-0.03); Imm Gran Pct Auto 0.7 % (0.0-0.4); Lymphocytes Absolute Auto 1.3 X10*3/uL (1.2-4.9); Lymphocytes Percent Auto 18.6 % (20-40); Mean Corpuscular HGB Conc 30.9 g/dl (31.0-36.0); Mean Corpuscular Hemoglobin 25.3 pg (27.0-33.0); Mean Corpuscular Volume 81.8 fL (80.0-98.0); Mean Platelet Volume 9.8 fL (9.4-12.4); Monocytes Absolute Auto 0.5 X10*3/uL (0.1-1.2); Monocytes Percent Auto 7.4 % (2-11); Neutrophils Percent Auto 72.5 % (45-73); Platelet Count 234 X10*3/uL (160-400); Red Blood Count 6.09 X10*6/uL (4.60-5.80); Red Cell Distribution Width 16.5 % (11.0-16.0); White Blood Count 6.9 X10*3/uL (4.8-10.8)
[2024-04-04 16:38] LABS: INTERNATIONAL NORM RATIO 1.2 (0.9-1.1); Prothrombin Time 14.2 SEC (10.9-12.4)
[2024-04-04 16:45] LABS: Anion Gap 11 (12-20); Blood Urea Nitrogen 12 mg/dL (9-16); Calcium 8.5 mg/dL (8.4-10.2); Carbon Dioxide 26 mmol/L (22-29); Chloride 107 mmol/L (96-108); Estimated Glomerular Filt Rate > 60; Glucose Random 101 mg/dL (60-115); Potassium 4.2 mmol/L (3.3-5.1); Sodium 140 mmol/L (135-145)
== END 2024-04-04 13:26 | disposition home or self-care (01) ==
LOC: HO.HMGCLDS 13:25
PROVIDERS: PCP Internal Medicine; Visit Provider Student in an Organized Health Care Education/Training Program
DX: Z01.818 Encounter for other preprocedural examination (principal); I48.91 Unspecified atrial fibrillation
CPT/HCPCS: 36415; 80048; 85025; 85610

== ENCOUNTER 2024-04-19 08:23 | Outpatient (AMB) | payer OTHER, SELFPAY ==
[2024-04-19 08:46] VITALS: BP 130/90; PULSE 80; O2SAT 95
--- NOTE | 2024-04-19 08:46 | AM.OFFWIN_ITS ---
Intake Vital Signs 04/19/24 08:46 Weight 329 lb BP 130/90 H Blood Pressure Location Lt brachial Position Sitting Pulse 80 Pulse Source Pulse Oximeter Pulse Oximetry (%) 95 Oxygen Delivery Method Room Air Intake Visit Reasons: EP LT ear is plugged Intake Note: Patient here for left ear blocked that has been present for a couple of days. Patient Tobacco Use Status: Former Tobacco user Allergies No Known Allergies Allergy (Verified 04/19/24 08:48) Medication List - Last Reconciled 04/19/24 by Ellie Smiley MD acetaminophen ER (Arthritis Pain Relief (acetaminophen) ER) 650 mg PO Q8H PRN apixaban (Eliquis) 5 mg PO BID blood pressure kit-extra large As directed capsaicin 0.025% (Salonpas-Hot) 1 patch topical TID PRN cholecalciferol (vitamin D3) 25 mcg PO DAILY diphenhydramine HCl (Benadryl Allergy) 50 mg PO BEDTIME lisinopril 10 mg PO DAILY tadalafil 20 mg PO DAILY PRN 30 days tobramycin 0.3% 1 drp ophthalmic (eye) Q4H 7 days Ventolin HFA 90 mcg/actuation (albuterol sulfate) 2 puffs inhalation Q6H PRN 30 days NS Do you need a note to return to daycare/school/sports/work: No HPI EP LT ear is plugged HPI Details Chief Complaint The patient presents with a plugged sensation in the left ear accompanied by cold symptoms. History of Present Illness - The patient is a 58-year-old male pres enting with a plugged sensation in the left ear. - Onset was one to two days ago, with co ncurrent cold symptoms for about a week. - The patient describes no pain but an o bstructed feeling, impaired hearing in the left ear, and ringing. - Reports coughing with phlegm productio n. - Attempted to clear the ear pressure pr eviously, which did not resolve the issue. - The patient believes the right ear rem ains unaffected. Patient Instructions - Take the prescribed antibiotics as dir ected to address cold symptoms and associated ear dysfunction. - Allow time for the medication to work and monitor any changes in symptoms. - Follow up with any questions or concer ns, especially if there is no improvement or if symptoms worsen. 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 Father Cardiovascular disease Other No family history of coronary artery disease Social History Housing: House Alcohol intake: current Alcohol intake frequency: a few times a week Alcohol type: beer, hard liquor and other Patient Tobacco Use Status: Former Tobacco user Tobacco use type: Cigarette e-Cigarette/Vaping Use: Never Used Second Hand Smoke Exposure: No Substance Use Type: Marijuana service: No Current occupational status: other Cognitive needs: No Hearing needs: No Vision needs: Yes Physical Exam Vital Signs: Last Vital Signs Pulse 80 04/19/24 08:46 BP 130/90 H 04/19/24 08:46 Pulse Ox 95 04/19/24 08:46 Oxygen Delivery Method Room Air 04/19/24 08:46 Const General: no acute distress Orientation/consciousness: patient oriented x3 HEENT Other: Both ears within normal limit with intact light reflex, uvula midline mild erythema present, patient does have a congested cough Eyes General: appearance normal, both eyes and all related structures Resp Effort & Inspection: normal respiratory effort and able to speak in complete sentences Auscultation: clear to auscultation bilaterally Neuro General: patient oriented x3 Psych Mental Status: mental status grossly normal Assessment & Plan Assessment & Plan (1) URI with cough and congestion: Code(s): J06.9 - Acute upper respiratory infection, unspecified Plan History of Present Illness - The patient is a 58-year-old male presenting with a plugged sensation in the left ear. - Onset was one to two days ago, with concurrent cold symptoms for about a week. - The patient describes no pain but an obstructed feeling, impaired hearing in the left ear, and ringing. - Reports coughing with phlegm production. - Attempted to clear the ear pressure previously, which did not resolve the issue. - The patient believes the right ear remains unaffected. Patient Instructions - Take the prescribed antibiotics as directed to address cold symptoms and ass ociated ear dysfunction. - Allow time for the medication to work and monitor any changes in symptoms. - Follow up with any questions or concerns, especially if there is no improvement or if symptoms worsen. Medications: New prednisone 10 mg PO DAILY 5 days 5 tabs 0RF Refilled azithromycin Take 2 tabs the first day, then 1 tab for the next 4 days 250 mg PO DAILY 5 days 6 tabs 0RF Coding Level of Care Code Est Pt Level 3 (23560) Diagnoses URI with cough and congestion J06.9
--- OUTSIDE RECORDS SUMMARY | 2024-04-19 08:55 | XMS_ITS | Data Portability ---
Author Organization [facility] [address] Address [address] [place] [address] Assessment No assessment recorded. Plan of Treatment Reminders Order Date Submit Date Provider Last Modified By Organization Details Last Modified Time Details Appointments None recorded. Lab None recorded. Referral None recorded. Procedures None recorded. Surgeries None recorded. Imaging None recorded. Medication Orders amlodipine 5 mg tablet 2022 023 [facility], [address] [place], [address], 3 15:35:41 amlodipine 5 mg tablet 2022 023 [facility], [address] [place], [address], 3 16:02:11 Patient TargetsNo targets recorded. Patient Instructions Encounter Date Encounter Id Patient Instructions Last Modified By Organization Details Last Modified Time 03/06/2022 [id number] high blood pressure: care instructions [email or web address] Not available 03/06/2022 16:02:08 07/03/2022 [id number] - As we discussed, you denied having [...] Address Organization Details Recorded Time Essential hypertension 66093207 Active 2022 TEMI [facility]ina [facility] - [facility] [...] Updated DateTime 3 177.8 cm 45.9 kg/m2 213538. 56 g 0 18 /min 97.1 [degF] [...] Updated DateTime 3 177.8 cm 50.2 kg/m2 590329. 33 g 98.1 [degF] 20 /min 88 /min 98 % 98 % 149 mm[Hg] 73 mm[Hg] TEMI aLm PA - [facility] 3 15:40:33 Social [...] SNOMED-CT Code Diagnosis ICD10 Code Diagnosis Note [id number] [address] [place] [address] 12/31/2021 13:10:06 12/31/2021 15:50:50 [id number] Dennis Salomon DO [facility] [address] [place] [address] 03/06/2022 14:08:02 03/06/2022 16:06:23 Essential hypertension 27091938 I10 BP well controlled on amlodipine per pt reportI will RF amlodipine Advised to establish care with PCPHe will need full lab panel to further assess his BP/health status Discussed concerning red flags with patient and reasons to follow up in the Emergency Department urgently. Patient expressed understand ing of and agreement with the plan as outlined above. 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 INSPECTOR [address] [facility] [address] [place] [address] 07/03/2022 14:41:41 07/03/2022 15:37:22 Essential hypertension 76911739 I10 Health Concerns Section Related Observation LastModified by Organization Detai ls LastModified Time None Recorded Concern Status LastModified by Organization Details LastModified Time None Recorded Advance Directives Directive None Recorded Payers Encounter Date Sequence Insurance Name Policy Number Policy Padgett Covered Member ID Padgett Member ID Guarantor Name 12/31/2021 1 [facility] - HEALTH NET PLAN (MEDICAID HMO) [id number] Lion Haney [id number] Lion Haney 03/06/2022 1 [facility]MEDICAID HMO) DINORAH Haney [id number] Lion Haney 03/06/2022 2 [place] [facility] Lion Haney [id number] Lion Haney 07/03/2022 1 [facility] (MEDICAID HMO) DINORAH Haney [id number] Lion Haney Notes Date Note Type Note Provider Name and Address Organization Details Recorded Time 03/06/2022 text/html Hypertension UCR eported bypatient.Notes:56 yo maleran out of his BP medsBP usually well controlled with amlodipine 5 mgno adverse SEno Hano LH/dizzinessno CPno NOVAK/SOBno edema no PCP at this time - looking for new PCP Dennis Salomon DO [address] [place], [address], [place] - [facility] 03/06/2022 16:02:36 07/03/2022 text/html Hypertension UCR eported bypatient.source of patient informationPatient arrived at Urgent Care ambulatory Quality:pressure Severity:mild Duration:has noted for years Onset/Timing:worse; gradual onset Context:exertion;emotio nal stress Alleviating Factors:relieved with rest Aggravating Factors:worse with activity Associated Symptoms:no shortness of breath; no fatigue; no palpitations; no decline in exercise capacity; no snoring Pete Mc NP [address] [place], [address], [place] [employer] [facility] 07/03/2022 15:36:08
== END 2024-04-19 09:05 | disposition home or self-care (01) ==
PROVIDERS: PCP Internal Medicine; Visit Provider Internal Medicine
DX: J06.9 Acute upper respiratory infection, unspecified (principal)

== ENCOUNTER → 2024-04-19 08:23 | Outpatient (BNVA) | payer OTHER, SELFPAY | PROVIDERS: PCP Internal Medicine | DX: J06.9 Acute upper respiratory infection, unspecified (principal) | CPT/HCPCS: 99212 ==

== ENCOUNTER 2024-04-24 11:55 | Outpatient (AMB) | payer OTHER, SELFPAY ==
[2024-04-24 11:57] VITALS: BP 140/90; PULSE 77; O2SAT 96; BMI 47.2
--- NOTE | 2024-04-24 11:57 | AM.OFFWIN_ITS ---
Intake Vital Signs 04/24/24 11:57 Height 5 ft 10 in Weight 329 lb BMI 47.2 BP 140/90 H Blood Pressure Location Rt brachial Position Sitting Pulse 77 Pulse Source Pulse Oximeter Pulse Oximetry (%) 96 Oxygen Delivery Method Room Air Intake Visit Reasons: EP ears are still plugged Intake Note: Patient here for left ear ringing. Patient Tobacco Use Status: Former Tobacco user Allergies No Known Allergies Allergy (Verified 04/24/24 11:58) Do you need a note to return to daycare/school/sports/work: No HPI HPI Comments History of Present Illness Details History - The patient is a 58-year-old male pres enting with left ear ringing and hearing loss. - He describes persistent left ear tinni tus and a notable decrease in hearing, first noted a week ago. - Initial evaluation ruled out ear infec tions, but he completed courses of Prednisone and Azithromycin with no beneficial outcomes. - Has a history of prolonged Afrin nasal spray use, which has led to rebound nasal congestion. - Large swelling of the it auditor y canal impeded clear view, and prior ear flushing aggravated the condition. - Regular exposure to high decibel envir onments without ear protection; no prior audiological consultations or ENT referrals have been pursued. Physical Exam General: Cooperative, healthy appearing, comfortable and no acute distress Orientation/consciousness: Patient oriented x3 Limitations: No limitations Head: Normal to inspection Ears: Hearing grossly normal in the right ear, left ear canal swollen and erythematous, was unable to visualize TM initially due to swelling of EAC, TMs with some fluid but no infection noted Nose: Normal external nose present, Normal nares present and No nasal discharge present Face and sinus: Normal facial exam and Yes sinuses nontender Mouth: Normal oral and palatal mucosa present and moist mucous membranes Throat: Yes tonsils normal, Yes uvula midline. Posterior oropharynx erythema Eyes: Appearance normal, both eyes and all related structures Neck: Normal visual inspection Respiratory: Normal respiratory effort, able to speak in complete sentences, Skin: No rashes or lesions noted Neuro: Patient oriented x3 Extremities: Normal to inspection and Yes no clubbing, cyanosis or edema [facility] Medical History Obesity, morbid, BMI 50 or higher New onset atrial fibrillation COPD exacerbation Atrial fibrillation, new onset Morbid obesity with BMI of 45.0-49.9, adult Encounter to establish care Foreign body (FB) in soft tissue HTN (hypertension) Cellulitis Surgical History History of wisdom tooth extraction Family History Mother No problems noted. Father Cardiovascular disease Other No family history of coronary artery disease Social History Housing: House Alcohol intake: current Alcohol intake frequency: a few times a week Alcohol type: beer, hard liquor and other Patient Tobacco Use Status: Former Tobacco user Tobacco use type: Cigarette e-Cigarette/Vaping Use: Never Used Second Hand Smoke Exposure: No Substance Use Type: Marijuana service: No Current occupational status: other Cognitive needs: No Hearing needs: No Vision needs: Yes Review of Systems Const All systems reviewed & are unremarkable except as noted in HPI and below Physical Exam Vital Signs: Last Vital Signs Pulse 77 04/24/24 11:57 BP 140/90 H 04/24/24 11:57 Pulse Ox 96 04/24/24 11:57 Oxygen Delivery Method Room Air 04/24/24 11:57 BMI result Body Mass Index 47.2 Assessment & Plan Assessment & Plan (1) Otitis externa: Code(s): H60.90 - Unspecified otitis externa, unspecified ear Qualifiers: Otitis externa type: other infective Chronicity: acute Laterality: left Qualified Code(s): H60.392 - Other infective otitis externa, left ear Plan: Ear drops will be administered to the left ear to decrease the swelling and improve hearing. Simultaneously, Afrin nasal spray must be stopped and Flonase initiated to manage nasal congestion with instructions on proper usage. The patient is informed that initial withdrawal from Afrin could be challenging, but it is necessary to alleviate the overuse-induced congestion. Subsequent steps involve observation of symptom improvement within a week, and if no progress is noted, pt should follow up with his PCP. Patient was informed and verbally consented to the use of an ambient scribe for clinic note documentation during this visit Medications: New fluticasone propionate 50 mcg/actuation administer into each nostril 1 spray intranasal Q12H 16 grams 0RF qnwomzzf-hchlbsibf-BL 3.5-10,000-1 mg/mL-unit/mL-% 4 drps otic (ear) left QID 7 days 10 mL 0RF Coding Level of Care Code Est Pt Level 3 (47998) Diagnoses Other infective acute otitis externa of left ear H60.392 Otitis externa type: other infective Chronicity: acute Laterality: left
--- OUTSIDE RECORDS SUMMARY | 2024-04-24 14:05 | XMS_ITS | Data Portability ---
Author Organization [facility] [address] Address [address] [place] [address] Assessment No assessment recorded. Plan of Treatment Reminders Order Date Submit Date Provider Last Modified By Organization Details Last Modified Time Details Appointments None recorded. Lab None recorded. Referral None recorded. Procedures None recorded. Surgeries None recorded. Imaging None recorded. Medication Orders amlodipine 5 mg tablet 2022 023 [facility], [address] [place], [address], 15:35:41 amlodipine 5 mg tablet 2022 023 [facility], [address] [place], [address], 16:02:11 Patient TargetsNo targets recorded. Patient Instructions Encounter Date Encounter Id Patient Instructions Last Modified By Organization Details Last Modified Time 03/06/2022 [id number] high blood pressure: care instructions [email or web address] Not available 03/06/2022 16:02:08 07/03/2022 [id number] - As we discussed, you denied having [...] Address Organization Details Recorded Time Essential hypertension 04709743 Active 2022 TEMI medina [facility] - [facility] [...] Updated DateTime 3 177.8 cm 45.9 kg/m2 776774. 56 g 0 18 /min 97.1 [degF] [...] Updated DateTime 3 177.8 cm 50.2 kg/m2 200744. 33 g 98.1 [degF] 20 /min 88 [...] SNOMED-CT Code Diagnosis ICD10 Code Diagnosis Note [id number] [address] [place] [address] 12/31/2021 13:10:06 12/31/2021 15:50:50 [id number] Dennis Salomon DO [facility] [address] [place] [address] 03/06/2022 14:08:02 03/06/2022 16:06:23 Essential hypertension 62787237 I10 BP well controlled on amlodipine per pt reportI will RF amlodipine Advised to establish care with PCPHe will need full lab panel to further assess his BP/health status Discussed concerning red flags with patient and reasons to follow up in the Emergency Department urgently. Patient expressed understand ing of and agreement with the plan as outlined above. [id number] Pete Mc MANAGED SERVICES SALES CONSULTANT [address] [facility] [address] [place] [address] 07/03/2022 14:41:41 07/03/2022 15:37:22 Essential hypertension 28296057 I10 Health Concerns Section Related Observation LastModified by Organization Detai ls LastModified Time None Recorded Concern Status LastModified by Organization Details LastModified Time None Recorded Advance Directives Directive None Recorded Payers Encounter Date Sequence Insurance Name Policy Number Policy Padgett Covered Member ID Padgett Member ID Guarantor Name 12/31/2021 1 [facility] [place]MEDICAID HMO) [id number] Lion Haney [id number] Lion Haney 03/06/2022 1 [facility] (MEDICAID HMO) DINORAH Haney [id number] Lion Haney 03/06/2022 2 [place] [facility] Lion Haney [id number] Lion Haney 07/03/2022 1 [facility] - [facility] NET [facility] (MEDICAID HMO) DINORAH Haney [id number] Lion Haney Notes Date Note Type Note Provider Name and Address Organization Details Recorded Time 03/06/2022 text/html Hypertension UCR eported bypatient.Notes:56 yo maleran out of his BP medsBP usually well controlled with amlodipine 5 mgno adverse SEno Hano LH/dizzinessno CPno NOVAK/SOBno edema no PCP at this time - looking for new PCP Dennis Salomon DO [address] [place], [address], [place] - [facility] 03/06/2022 16:02:36 07/03/2022 text/html Hypertension UCR eported bypatient.source of patient informationPatient arrived at Urgent Care ambulatory Quality:pressure Severity:mild Duration:has noted for years Onset/Timing:worse; gradual onset Context:exertion;emotio nal stress Alleviating Factors:relieved with rest Aggravating Factors:worse with activity Associated Symptoms:no shortness of breath; no fatigue; no palpitations; no decline in exercise capacity; no snoring Pete Mc NP [address] [place], [address], [place] [facility] 07/03/2022 15:36:08
== END 2024-04-24 13:01 | disposition home or self-care (01) ==
PROVIDERS: PCP Internal Medicine; Visit Provider Physician Assistant
DX: H60.392 Other infective otitis externa, left ear (principal)

== ENCOUNTER → 2024-04-24 11:55 | Outpatient (BNVA) | payer OTHER, SELFPAY | PROVIDERS: PCP Internal Medicine | DX: H60.392 Other infective otitis externa, left ear (principal) | CPT/HCPCS: 99212 ==

== ENCOUNTER 2024-09-05 14:18 | Outpatient (AMB) | payer OTHER, SELFPAY ==
--- NOTE | 2024-09-05 14:20 | A.OFFVIS_ITS ---
Intake Visit Reasons: erectile dysfunction Intake Note: New Patient is present for erectile dysfunction Urology Rx:Tadalafil Blood Thinners:Eliquis Physician Extender Required: No Accompanied by: Self / Same As Patient Allergies No Known Allergies Allergy (Verified 09/05/24 14:22) HPI Comments Details: Lion is a pleasant male. . He is a patient of Dr. Lozano . He is seen for the following urologic conditions - erectile dysfunction Erectile Dysfunction He presents today for - initial treatment for erectile dysfunction Current treatment includes - TriMix injection high-dose from [facility] At the time of initial evaluation he experiences - partial erections sufficient for intercourse with rapid detumescence Symptoms have been present for/since - progressive over past 5 years Nocturnal erections minimal Prior therapies include - oral medications Treatment side effects include - Associated Medical Conditions include obesity, dyslipidemia Physical Performance Status is able to walk 200 yd and can ascend 2 flights of stairs easily without breathlessness Atherosclerosis Cardiovascular Disease Risk - Medications include(s) antihypertensive medication, Investigations include - needs PSA and testosterone Overall he is not satisfied with current management Therapeutic plan includes - addition of high-dose daily tadalafil to on demand injections, check testosterone - recommend significant weight loss [facility] Medical History Obesity, morbid, BMI 50 or higher New onset atrial fibrillation COPD exacerbation Atrial fibrillation, new onset Morbid obesity with BMI of 45.0-49.9, adult Encounter to establish care Foreign body (FB) in soft tissue HTN (hypertension) Cellulitis Surgical History History of wisdom tooth extraction Family History Mother No problems noted. Father Cardiovascular disease Other No family history of coronary artery disease Social History Housing: House Alcohol intake: current Alcohol intake frequency: a few times a week Alcohol type: beer, hard liquor and other Patient Tobacco Use Status: Former Tobacco user Tobacco use type: Cigarette e-Cigarette/Vaping Use: Never Used Second Hand Smoke Exposure: No Substance Use Type: Marijuana service: No Current occupational status: other Cognitive needs: No Hearing needs: No Vision needs: Yes Review of Systems Const Denies chills and Denies fever(s) Card Reports no additional complaints and Denies syncope Resp Denies cough GI Denies abdominal pain and Denies heartburn Reports as per HPI and Denies change in libido Neuro Denies syncope Psych Denies change in libido Endo Denies change in libido Physical Exam Const General: cooperative, healthy appearing, comfortable and no acute distress Orientation/consciousness: patient oriented x3 HEENT Face and sinus: Yes normal facial exam Mouth: moist mucous membranes Neck Neck: Yes normal visual inspection, Yes full ROM and Yes trachea midline Chest Chest palpation & inspection: normal inspection of the chest Resp Effort & Inspection: normal respiratory effort, able to speak in complete sentences and no respiratory distress GI Inspection: Yes normal to inspection Back/Spine/Pelvis Cervical Spine: normal cervical lordosis Thoracic/Lumbar Spine: thoracic and lumbar spine normal to inspection Skin General skin exam: no rashes or lesions noted Neuro General: patient oriented x3, gait normal, tone normal and moves all extremities Extrem General: Yes normal to inspection and Yes capillary refill normal Assessment & Plan Assessment & Plan (1) Erectile dysfunction: Code(s): N52.9 - Male erectile dysfunction, unspecified Category: Medical Plan Three-month follow-up Repeat testosterone labs a 10 week Orders: Orders Testosterone, Free/Total 10 Weeks N52.9 - Male erectile dysfunction, unspecified Medications: New tadalafil [id number] [facility] GroupGDRX Member [id number] 20 mg PO DAILY 90 tabs 0RF sexual activity 90 days N52.9 - Male erectile dysfunction, unspecified Patient Instructions: This note is constructed using voice recognition software. While every effort has been made to ensure accuracy certified shorthand reporter errors may have been included. Imaging studies, laboratory and physical exam results were discussed and reviewed in detail. No major barriers to patient understanding were identified. An opportunity to ask questions regarding the treatment plan was provided. All questions were answered. The patient expressed understanding and agreement with the above treatment plan. The patient is aware they should contact our office by phone for worsening of their current condition or the appearance of new urologic symptoms. Compliance is encouraged with any medications and followup testing that is ordered. It is a privilege to participate in the urologic care of your patient. If you have any questions or concerns regarding treatment for the above conditions, or other urologic issues, please do not hesitate to contact me. The office telephone contact is [phone]. Sincerely, Dr Shorty Estrada MD, [facility] - Urology Compassionate Specialist Care for the Genitourinary System Coding Level of Care Code New Pt Level 4 (96826) Diagnoses Erectile dysfunction N52.9
--- OUTSIDE RECORDS SUMMARY | 2024-09-05 15:32 | XMS_ITS | Data Portability ---
Author Organization [facility] [address] Address [address] [place] [address] Assessment No assessment recorded. Plan of Treatment Reminders Order Date Submit Date Provider Last Modified By Organization Details Last Modified Time Details Appointments None recorded. Lab None recorded. Referral None recorded. Procedures None recorded. Surgeries None recorded. Imaging None recorded. Medication Orders amlodipine 5 mg tablet 2022 023 [facility], [address] [place], [address], 3 15:35:41 amlodipine 5 mg tablet 2022 023 [facility], [address] [place], [address], 3 16:02:11 Patient TargetsNo targets recorded. Patient Instructions Encounter Date Encounter Id Patient Instructions Last Modified By Organization Details Last Modified Time 03/06/2022 [id number] high blood pressure: care instructions [email or web address] Not available 03/06/2022 16:02:08 07/03/2022 [id number] - As we discussed, you denied having [...] as this can be a medical emergency. [email or web address] Not available 07/03/2022 15:35:08 Reason for Referral None Reported. Problems Name Problem SNOMED Code Status Onset Date Resolution Date Notes Provider Name and Address Organization Details Recorded Time Essential hypertension 74167645 Active 2022 [facility] [...] in Arterial blood by Pulse oximetry Systolic And Diastolic Provider Name and Address Organization Details Last Updated DateTime 3 177.8 cm 50.2 kg/m2 663278. 33 g 98.1 [degF] 20 /min 88 /min 98 % 98 % 149/73 mm[Hg] TEMI Lam PA - [facility] 3 15:40:33 Date Recorded Body height Body mass index (BMI) Body weight Respiratory rate Body temperature Heart rate Oxygen saturation Oxygen saturation in Arterial blood by Pulse oximetry Systolic And Diastolic Provider Name and Address Organization Details Last Updated DateTime 3 177.8 cm 45.9 kg/m2 126054. 56 g 18 /min 97.1 [degF] 91 /min 97 % 97 % 130/84 mm[Hg] Mayra Montoya PA - [facility] 3 15:20:46 Social History Question Answer Notes LastModified by Organizat ion Details LastModified Time Tobacco Smoking Status Former Smoker TEMI medina PA - [facility] 03/06/2022 15:38:20 When Did You Quit Smoking? 6-10yearssin celastcigare tte Information not available 07/03/2022 What Is Your Water Source? [facility] Information not available 03/06/2022 What Is Your Heat Source? Other Information not available 03/06/2022 Have You Had Direct Contact, Or Contact During Intimacy, With Monkeypox Rash, Scabs, Or Body Fluids From A Person With Monkeypox? No Information not available 03/06/2022 Have You Recently Traveled Abroad? No Information not available 03/06/2022 Sex: Unknown Functional Status Question Answer Note LastModified by Organizat ion Details LastModified Time How many times per week do you consume alcohol? 1-2 times per week Information not available 07/03/2022 Do you use any illicit or recreational drugs? No Information not available 03/06/2022 Do you or have you ever used any other forms of tobacco or nicotine? Yes Information not available 07/03/2022 What is your level of alcohol consumption? Occasional Information not available 03/06/2022 Mental Status None recorded. Family History Relationship [...] 50 mcg/0.25mL dose 07/15/2020 completed [facility] 07/03/2022 15:18:17 Tdap 11/15/2021 completed [facility] - [facility] 07/03/2022 15:18:18 Past Encounters Encounter ID Performer Location Encounter Start Date Encounter Closed Date Diagnosis/Indication Diagnosis SNOMED-CT Code Diagnosis ICD10 Code Diagnosis Note [id number] [facility] [address] [place] [address] 12/31/2021 13:10:06 12/31/2021 15:50:50 [id number] Dennis Salomon DO [facility] [address] [place] [address] 03/06/2022 14:08:02 03/06/2022 16:06:23 Essential hypertension 30124298 I10 BP well controlled on amlodipine per pt reportI will RF amlodipine Advised to establish care with PCPHe will need full lab panel to further assess his BP/health status Discussed concerning red flags with patient and reasons to follow up in the Emergency Department urgently. Patient expressed understand ing of and agreement with the plan as outlined above. [id number] Pete Mc NP [facility] [address] [place] [address] 07/03/2022 14:41:41 07/03/2022 15:37:22 Essential hypertension 89923376 I10 Health Concerns Section Related Observation LastModified by Organization Detai ls LastModified Time None Recorded Concern Status LastModified by Organization Details LastModified Time None Recorded Advance Directives Directive None Recorded Payers Insurance Date Sequence Insurance Name Policy Number Policy Padgett Covered Member ID Padgett Member ID Guarantor Name 03/06/2022 1 [facility] - HE[facility] (MEDICAID HMO) [id number] Lion Haney [id number] Lion Haney 07/03/2022 1 [facility]MEDICAID HMO) [place] Lion Haney [id number] Lion Haney 07/03/2022 2 [place]: [facility] Lion Haney [id number] Lion Haney 03/06/2022 2 [facility] (O) [id number] Lion Haney [id number] Lion Haney Notes Date Note Type Note Provider Name and Address Organization Details Recorded Time 03/06/2022 text/html Hypertension UCR eported bypatient.Notes:56 yo maleran out of his BP medsBP usually well controlled with amlodipine 5 mgno adverse SEno Hano LH/dizzinessno CPno NOVAK/SOBno edema no PCP at this time - looking for new PCP Dennis Salomon, [address] [place], [address], [place] [employer] [facility] 03/06/2022 16:02:36 07/03/2022 text/html Hypertension UCR eported bypatient.source of patient informationPatient arrived at Urgent Care ambulatory Quality:pressure Severity:mild Duration:has noted for years Onset/Timing:worse; gradual onset Context:exertion;emotio nal stress Alleviating Factors:relieved with rest Aggravating Factors:worse with activity Associated Symptoms:no shortness of breath; no fatigue; no palpitations; no decline in exercise capacity; no snoring Pete Mc NP [address] [place], [address], [place] [employer] [facility] 07/03/2022 15:36:08
== END 2024-09-05 16:03 | disposition home or self-care (01) ==
LOC: HO.HUSH 14:18
PROVIDERS: PCP Internal Medicine; Visit Provider Urology
DX: N52.9 Male erectile dysfunction, unspecified (principal)
CPT/HCPCS: 99204

== ENCOUNTER → 2024-09-05 14:18 | Outpatient (BNVA) | payer OTHER, SELFPAY | PROVIDERS: PCP Internal Medicine; Visit Provider Urology | DX: N52.9 Male erectile dysfunction, unspecified (principal); E66.9 Obesity, unspecified; E78.5 Hyperlipidemia, unspecified | CPT/HCPCS: 99202 ==

== ENCOUNTER 2024-11-29 11:40 | Outpatient (REF) | payer OTHER, SELFPAY ==
[2024-12-04 00:19] LABS: Testosterone, Free 66.0 pg/mL (35.0-155.0)
== END 2024-11-29 11:41 | disposition home or self-care (01) ==
LOC: HO.HMGCLDS 11:40
PROVIDERS: PCP Internal Medicine; Visit Provider Urology
DX: N52.9 Male erectile dysfunction, unspecified (principal)
CPT/HCPCS: 36415; 84402; 84403

== ENCOUNTER 2024-12-12 15:10 | Outpatient (AMB) | payer OTHER, SELFPAY ==
--- NOTE | 2024-12-12 15:23 | A.OFFVIS_ITS ---
Intake Visit Reasons: 3m/Testo Intake Note: patient presents today for: 3m follow up Urology Rx:Tadalafil Blood Thinners:Eliquis labs done 11/29/24: TT 426, FR testo 66.0 Hooker Off Required: No Accompanied by: Self / Same As Patient Allergies No Known Allergies Allergy (Verified 12/12/24 15:25) HPI Comments Details: Lion is a pleasant male. . He is a patient of Dr. Lozano . He is seen for the following urologic conditions - erectile dysfunction Three-month follow-up High-dose tadalafil 20 mg daily with 20 mg on demand Testosterone lab - 12/16 T 426 Good response to daily high-dose tadalafil from perspective of testosterone Does have morning erections 3 times per week Still using TriMix Prescription provided for [place] Erectile Dysfunction He presents today for - initial treatment for erectile dysfunction Current treatment includes - TriMix injection high-dose from [facility] At the time of initial evaluation he experiences - partial erections sufficient for intercourse with rapid detumescence Symptoms have been present for/since - progressive over past 5 years Nocturnal erections minimal Prior therapies include - oral medications Treatment side effects include - Associated Medical Conditions include obesity, dyslipidemia Physical Performance Status is able to walk 200 yd and can ascend 2 flights of stairs easily without breathlessness Atherosclerosis Cardiovascular Disease Risk - Medications include(s) antihypertensive medication, Investigations include - 12/16 T 426 Therapeutic plan includes - addition of high-dose daily tadalafil to on demand injections, check testosterone - recommend significant weight loss [facility] Medical History Obesity, morbid, BMI 50 or higher New onset atrial fibrillation COPD exacerbation Atrial fibrillation, new onset Morbid obesity with BMI of 45.0-49.9, adult Encounter to establish care Foreign body (FB) in soft tissue HTN (hypertension) Cellulitis Surgical History History of wisdom tooth extraction Family History Mother No problems noted. Father Cardiovascular disease Other No family history of coronary artery disease Social History Housing: House Alcohol intake: current Alcohol intake frequency: a few times a week Alcohol type: beer, hard liquor and other Patient Tobacco Use Status: Former Tobacco user Tobacco use type: Cigarette e-Cigarette/Vaping Use: Never Used Second Hand Smoke Exposure: No Substance Use Type: Marijuana service: No Current occupational status: other Cognitive needs: No Hearing needs: No Vision needs: Yes Review of Systems Const Denies chills and Denies fever(s) Card Reports no additional complaints and Denies syncope Resp Denies cough GI Denies abdominal pain and Denies heartburn Reports as per HPI and Denies change in libido Neuro Denies syncope Psych Denies change in libido Endo Denies change in libido Physical Exam Const General: cooperative, healthy appearing, comfortable and no acute distress Orientation/consciousness: patient oriented x3 HEENT Face and sinus: Yes normal facial exam Mouth: moist mucous membranes Neck Neck: Yes normal visual inspection, Yes full ROM and Yes trachea midline Chest Chest palpation & inspection: normal inspection of the chest Resp Effort & Inspection: normal respiratory effort, able to speak in complete sentences and no respiratory distress GI Inspection: Yes normal to inspection Back/Spine/Pelvis Cervical Spine: normal cervical lordosis Thoracic/Lumbar Spine: thoracic and lumbar spine normal to inspection Skin General skin exam: no rashes or lesions noted Neuro General: patient oriented x3, gait normal, tone normal and moves all extremities Extrem General: Yes normal to inspection and Yes capillary refill normal Assessment & Plan Assessment & Plan (1) Erectile dysfunction: Code(s): N52.9 - Male erectile dysfunction, unspecified Category: Medical (2) Hypogonadism in male: Code(s): E29.1 - Testicular hypofunction Category: Medical Plan Six-month follow-up Medications: New whjlosrwah-bwuurjjmzsj-lwraxjm 150 mg-5 mg- 50 mcg (Tri-Mix (papaver-phentol- PGE1)) May adjust dosing by 0.05ml to achieve 40 min erection Tri-Mix - Alprostadil/papaverine/phentolamine - 68nge-10uj-0sj/ml Initial vial 2.5cc Patient 0.25 mL intra-cavernosal ONCE PRN 1 ea 1RF erections 30 days N52.9 - Male erectile dysfunction, unspecified Refilled tadalafil [id number] [facility] GroupGDRX Member [id number] 20 mg PO DAILY 90 tabs 1RF sexual activity 90 days N52.9 - Male erectile dysfunction, unspecified Patient Instructions: This note is constructed using voice recognition software. While every effort has been made to ensure accuracy stack yield engineer errors may have been included. Imaging studies, laboratory and physical exam results were discussed and reviewed in detail. No major barriers to patient understanding were identified. An opportunity to ask questions regarding the treatment plan was provided. All questions were answered. The patient expressed understanding and agreement with the above treatment plan. The patient is aware they should contact our office by phone for worsening of t heir current condition or the appearance of new urologic symptoms. Compliance is encouraged with any medications and followup testing that is ordered. It is a privilege to participate in the urologic care of your patient. If you have any questions or concerns regarding treatment for the above conditions, or other urologic issues, please do not hesitate to contact me. The office telephone contact is [phone]. Sincerely, Dr Shorty Estrada MD, [facility] - Urology Compassionate Specialist Care for the Genitourinary System Coding Level of Care Code Est Pt Level 4 (06480) Complex EM visit Add On G2211 Diagnoses Erectile dysfunction N52.9 Hypogonadism in male E29.1
--- OUTSIDE RECORDS SUMMARY | 2024-12-12 20:23 | XMS_ITS | Data Portability ---
Author Organization [facility] [address] Address [address] [place] [address] Assessment No assessment recorded. Plan of Treatment Reminders Order Date Submit Date Provider Last Modified By Organization Details Last Modified Time Details Appointments None recorded. Lab None recorded. Referral None recorded. Procedures None recorded. Surgeries None recorded. Imaging None recorded. Medication Orders amlodipine 5 mg tablet 2022 023 [facility], [address] [place], [address], 3 15:35:41 amlodipine 5 mg tablet 2022 023 [facility], [address] [place], [address], 3 16:02:11 Patient TargetsNo targets recorded. Patient Instructions Encounter Date Encounter Id Patient Instructions Last Modified By Organization Details Last Modified Time 03/06/2022 [id number] high blood pressure: care instructions [email or web address] Not available 03/06/2022 16:02:08 07/03/2022 [id number] - As we discussed, you denied having [...] Address Organization Details Recorded Time Essential hypertension 48254756 Active 2022 [facility]ina [facility] [...] Updated DateTime 3 177.8 cm 50.2 kg/m2 508284. 33 g 98.1 [degF] 20 /min 88 /min 98 % 98 % 149/73 mm[Hg] TEMI GONSALEZ - [facility] 3 15:40:33 Date Recorded Body height Body mass index (BMI) Body weight Pain severity - 0-10 verbal numeric rating [Score] - Reported Respiratory rate Body temperature Heart rate Oxygen saturation Oxygen saturation in Arterial blood by Pulse oximetry Systolic And Diastolic Provider Name and Address Organization Details Last Updated DateTime 3 177.8 cm 45.9 kg/m2 186855. 56 g 0 18 /min 97.1 [degF] 91 /min 97 % 97 % 130/84 mm[Hg] Mayra Montoya PA - [facility] 3 15:20:46 Social History Question Answer Notes LastModified by Organizat ion Details LastModified Time Tobacco Smoking Status Former Smoker TEMI medina PA [facility] 03/06/2022 15:38:20 When Did You Quit Smoking? 6-10yearssin celastciadrianna patiñoe Information not available 07/03/2022 What Is Your [...] dose or 50 mcg/0.25mL dose 07/15/2020 completed Mayra medina PA - [facility] 07/03/2022 15:18:17 Tdap 11/15/2021 completed Mayra Montoya [facility] - [facility] 07/03/2022 15:18:18 Past Encounters Encounter ID Performer Location Encounter Start Date Encounter Closed Date Diagnosis/Indication Diagnosis SNOMED-CT Code Diagnosis ICD10 Code Diagnosis IMO Codes Diagnosis Note [id number] [facility] [address] [address] 12/31/2021 13:10:06 12/31/2021 15:50:50 [id number] Dennis Andresfouzia _[facility] [address] [address] 03/06/2022 14:08:02 03/06/2022 16:06:23 Essential hypertension 45253660 I10 BP well controlled on amlodipine per pt reportI will RF amlodipine Advised to establish care with PCPHe will need full lab panel to further assess his BP/health status Discussed concerning red flags with patient and reasons to follow up in the Emergency Department urgently. Patient expressed understand ing of and agreement with the plan as outlined above. [id number] Pete [place] [address] [address] 07/03/2022 14:41:41 07/03/2022 15:37:22 Essential hypertension 76188056 I10 Health Concerns Section Related Observation LastModified by Organization Detai ls LastModified Time None Recorded Concern Status LastModified by Organization Details LastModified Time None Recorded Advance Directives Directive None Recorded Payers Insurance Date Sequence Insurance Name Policy Number Policy Padgett Covered Member ID Padgett Member ID Guarantor Name 03/06/2022 1 [facility] (MEDICAID HMO) [id number] Lion Haney [id number] Lion Haney 07/03/2022 1 [facility]ALTH [facility] (MEDICAID HMO) [place] Lion Haney [id number] Lion Haney 07/03/2022 2 [place] [facility] Lion Haney [id number] Lion Haney 03/06/2022 2 [facility] (O) [id number] Lion Haney [id number] Lion Haney Notes Date Note Type Note Provider Name and Address Organization Details Recorded Time 03/06/19 23 text/htm l Hypertension UCReported by [id number] yo malekarely out of his BP medsBP usually well controlled with amlodipine 5 mgno adverse SEno Hano LH/dizzinessno CPno NOVAK/SOBno edema no PCP at this time - looking for new PCP ROS as noted in the HPI Dennis Salomon DO [address] [place], [address], [place] PA - [facility] 03/06/2022 16:02:36 07/04/19 23 text/htm l HypertensionReported by Patient Generic HPI TemplateReported by Patient Hypertension UCReported by PatientHPIFor quality, patient reportspressure. For onset/timing, patient reportsworsebut reportsgradual onset. For context, patient reportsexertionandemotional stress. For aggravating factors, patient reportsworse with activity. For source of patient information, patient reportspatient arrived at urgent care ambulatory. For severity, patient reportsmild. For duration, patient reportshas noted for years. For alleviating factors, patient reportsrelieved with rest. For associated symptoms, patient reportsno shortness of breath,no fatigue,no palpitations,no decline in exercise capacity, andno snoring.ROS as noted in the HPI Pete Mc NP [address] [place], [address], [place] - [facility] 07/03/2022 15:36:08
== END 2024-12-12 15:49 | disposition home or self-care (01) ==
LOC: HO.HUSH 15:11
PROVIDERS: PCP Internal Medicine; Visit Provider Urology
DX: N52.9 Male erectile dysfunction, unspecified (principal); E29.1 Testicular hypofunction
CPT/HCPCS: 99214

== ENCOUNTER → 2024-12-12 15:10 | Outpatient (BNVA) | payer OTHER, SELFPAY | PROVIDERS: PCP Internal Medicine; Visit Provider Urology | DX: E29.1 Testicular hypofunction (principal); N52.9 Male erectile dysfunction, unspecified | CPT/HCPCS: 99212 ==

== ENCOUNTER 2024-12-18 14:19 | Outpatient (AMB) | payer OTHER, SELFPAY ==
[2024-12-18 14:21] VITALS: BP 142/96; PULSE 106; O2SAT 96; BMI 42.8
--- NOTE | 2024-12-18 14:21 | A.OFFPC_ITS ---
Vital Signs 12/18/24 14:21 Height 5 ft 10 in Weight 298 lb 8 oz BMI 42.8 BP 142/96 H Blood Pressure Location Lt brachial Position Sitting Pulse 106 H Pulse Source Pulse Oximeter Pulse Oximetry (%) 96 Oxygen Delivery Method Room Air Intake Visit Reasons: Annual Exam PHQ-9 needed. Attic Blower Required: No Accompanied by: Self / Same As Patient Allergies No Known Allergies Allergy (Verified 12/18/24 14:39) Medication List - Last Reconciled 12/18/24 by Sophie Lozano MD acetaminophen ER (Arthritis Pain Relief (acetaminophen) ER) 650 mg PO Q8H PRN apixaban (Eliquis) 5 mg PO BID blood pressure kit-extra large As directed capsaicin 0.025% (Salonpas-Hot) 1 patch topical TID PRN cholecalciferol (vitamin D3) 25 mcg PO DAILY diphenhydramine HCl (Benadryl Allergy) 50 mg PO BEDTIME fluticasone propionate 50 mcg/actuation 1 spray intranasal Q12H lisinopril 10 mg PO DAILY gfvebaqvpw-xrkcvrebmru-voblewm 150 mg-5 mg- 50 mcg (Tri-Mix (rjmgxvd-ygehplv-CHQ8)) 0.25 mL intra-cavernosal ONCE PRN 30 days tadalafil 20 mg PO DAILY 90 days tadalafil 20 mg PO DAILY PRN 30 days Ventolin HFA 90 mcg/actuation (albuterol sulfate) 2 puffs inhalation Q6H PRN 30 days NS Tobacco use date assessed: 12/18/24 Dental Screening Dental Screen Date: 12/18/24 Did you have a dental visit in the last 12 months?: No Did you have a dental problem in the last 6 months where you did not have access to dental care?: No Was dental information given to patient?: Patient has dentist HPI HPI Comments History of Present Illness Details The patient is a 59-year-old male presenting for an annual physical examination. He has a history of heart surgery and is on several chronic medications. The patient reports a history of erectile dysfunction, for which he was previously prescribed Cialis. His urologist, Dr. Estrada, recently increased his tadalafil to a daily dose. He also uses Trimix as needed and reports his symptoms are improving. Recent lab work ordered by Dr. Estrada showed his testosterone level increased from 200 to 450. The patient is prescribed Eliquis twice a day but has self-adjusted his dose to once daily in the morning due to concerns about excessive bleeding if he sustains a cut. He has paroxysmal atrial fibrillation and follows with cardiology. He also mentions sometimes forgetting the evening dose. He notes hi s insurance recently changed coverage from a 90-day to a 30-day supply for the medication. His daily medications include lisinopril 10 mg every morning. The patient reports significant intentional weight loss, with his weight now down to 280 pounds, due to a diet his girlfriend initiated. He is morbidly obese with a BMI of 42.8. He is up to date with his Tdap vaccine, which he received in 2021. He has no known allergies. The patient has never had a colonoscopy and declines the screening. [facility] Medical History Obesity, morbid, BMI 50 or higher New onset atrial fibrillation COPD exacerbation Atrial fibrillation, new onset Morbid obesity with BMI of 45.0-49.9, adult Encounter to establish care Foreign body (FB) in soft tissue HTN (hypertension) Cellulitis Surgical History History of wisdom tooth extraction Family History Mother No problems noted. Father Cardiovascular disease Other No family history of coronary artery disease Social History Housing: House Alcohol intake: current Alcohol intake frequency: a few times a week Alcohol type: beer, hard liquor and other Patient Tobacco Use Status: Former Tobacco user Tobacco use type: Cigarette e-Cigarette/Vaping Use: Never Used Second Hand Smoke Exposure: No Substance Use Type: Marijuana service: No Current occupational status: other Cognitive needs: No Hearing needs: No Vision needs: Yes Questionnaire PHQ-9 Over the last 2 weeks, how often have you been bothered by any of the following problems? 1. Little interest or pleasure in doing things: not at all 2. Feeling down, depressed, or hopeless: not at all 3. Trouble falling or staying asleep, or sleeping too much: not at all 4. Feeling tired or having little energy: not at all 5. Poor appetite or overeating: not at all 6. Feeling bad about yourself - or that you are a failure or have let yourself or your family down: not at all 7. Trouble concentrating on things, such as reading the newspaper or watching television: not at all 8. Moving or speaking so slowly that other people could have noticed. Or the opposite - being so fidgety or restless that you have been moving around a lot more than usual: not at all 9. Thoughts that you would be better off or of hurting yourself in some way: not at all Total score: 0 Depression Screening Interpretation: Negative Depression Screening Done: Yes 18586 - PHQ-9 Billing: Yes Source: Developed by Drs. Jeffrey Menjivar, Heather Coulter, Torres Diaz and colleagues, with an educational channing from [employer]. Thrive Questionnaire Date Thrive assessed: 12/18/24 I am a: Patient What is your living situation today?: I have a steady place to live Within the past 12 months, did the food you bought not last and you didn't have the money to get more?: I choose not to answer this question Within the past 12 months, did you worry whether your food would run out before you got money to buy more?: I choose not to answer this question Do you have trouble paying for medicines?: No Do you have trouble getting transportation to medical appointments?: No Do you have trouble paying your heating and electricity bill?: I choose not to answer this question Do you have trouble taking care of your child, family member or friend?: I c hoose not to answer this question Do you have trouble with day-to-day activities such as bathing, preparing meals, shopping, managing finances, etc.?: No Are you currently unemployed and looking for a job?: No Are you interested in more education?: No Please select the resources that you would like help with: None Currently or been in a relationship where the following occur: No concerns reported THRIVE Score: 0 AUDIT C Alcohol Use Questionnaire (AUDIT-C) 1. How often do you have a drink containing alcohol?: Monthly or less 2. How many drinks containing alcohol do you have on a typical day when you are drinking?: 1 or 2 3. How often do you have six or more drinks on one occasion?: Never Total Score: 1 Score Reviewed/Action Taken: No NOBLE-7 AMB Questionnaire NOBLE-7 Date NOBLE - 7 assessed: 12/18/24 Feeling nervous, anxious, or on edge: 0 = Not at all Not being able to stop or control worryin = Not at all Worrying too much about different things: 0 = Not at all Trouble relaxin = Not at all Being so restless that it is hard to sit still: 0 = Not at all Becoming easily annoyed or irritable: 0 = Not at all Feeling afraid as if something awful might happen: 0 = Not at all Total NOBLE-7 score (0-4 normal; 5-9 mild; 10-14 moderate; 15-21 severe): 0 Source: Developed by Drs. Jeffrey Menjivar, Heather Coulter, Torres Diaz and colleagues, with an educational channing from [employer]. NOBLE-7 Assessment Billing NOBLE-7 Assessment Tool: NOBLE-7 Assessment 11100 Review of Systems Const All systems reviewed & are unremarkable except as noted in HPI and below Card Denies chest pain at rest, Denies chest pain with activity, Denies edema, Denies irregular heart rhythm, Denies claudication, Denies dyspnea, Denies dyspnea on exertion, Denies orthopnea, Denies paroxysmal nocturnal dyspnea and Denies slow heart rate Resp Denies cough, Denies dyspnea and Denies dyspnea on exertion GI Denies abdominal pain, Denies change in bowel habits, Denies excessive flatus, Denies nausea and Denies vomiting Physical exam (Primary Care) Vital Signs: Last Vital Signs Pulse 106 H 12/18/24 14:21 BP 142/96 H 12/18/24 14:21 Pulse Ox 96 12/18/24 14:21 Oxygen Delivery Method Room Air 12/18/24 14:21 BMI result Body Mass Index 42.8 BMI Assessment/Plan discussion: High BMI High, discussed plan: lifestyle, weight reduction, dietary and physical activity Tobacco/Smoking Status: Tobacco use Status Tobacco use date assessed 12/18/24 12/18/24 14:30 Patient Tobacco Use Status Former Tobacco user 12/18/24 14:30 Tobacco use type Cigarette 12/18/24 14:30 e-Cigarette/Vaping Use Never Used 12/18/24 14:30 PHQ-9: PHQ-9 Score PHQ-9: Total score 0 12/18/24 14:30 Depression Screening Interpretation: Negative Thrive Assessment: Date of Thrive Assessment Date Thrive assessed 12/18/24 12/18/24 14:30 Currently or been in a relationship where the following occur: No concerns reported [facility] Head: Yes normal to inspection, Yes normocephalic and Yes atraumatic Ears: external ears normal Eyes General: appearance normal, both eyes and all related structures Eyelids: Yes eyelids normal Conjunctivae: conjunctivae normal Neck Neck: Yes normal visual inspection and Yes supple Resp Effort & Inspection: normal respiratory effort Auscultation: clear to auscultation bilaterally Cardio Jugular venous distension: no JVD Rate: regular rate Rhythm: regular rhythm Heart sounds: S1 normal heart sound present and S2 normal heart sound present GI Inspection: Yes normal to inspection Palpation (GI): Soft to palpation and nontender Auscultation: normal bowel sounds Skin General skin exam: no rashes or lesions noted Neuro General: no focal motor deficits Extrem General: Yes full ROM Psych Appearance: grossly normal Coding Level of Care Code Est Pt Prev Care 40-64y(78118) Diagnoses Physical exam Z00.00 Morbid obesity with BMI of 45.0-49.9, adult E66.01; Z68.42 Atrial fibrillation I48.91 Additional Codes PHQ-9 - 12836 - PHQ-9 Billing: Yes ([id number]) NOBLE-7 Assessment Billing - NOBLE-7 Assessment Tool: NOBLE-7 Assessment 52243 ([id number]) Time Spent (min) 30 Assessment & Plan Assessment & Plan (1) Physical exam: Code(s): Z00.00 - Encounter for general adult medical examination without abnormal findings Category: Medical (2) Morbid obesity with BMI of 45.0-49.9, adult: Code(s): E66.01 - Morbid (severe) obesity due to excess calories; Z68.42 - Body mass index [BMI] 45.0-49.9, adult Category: Medical (3) Atrial fibrillation: Code(s): I48.91 - Unspecified atrial fibrillation Category: Medical Plan Plan 1. Encounter for general adult medical examination without abnormal findings Z00.00 A physical exam was conducted. The patient's Tdap vaccination is current. Colonoscopy screening was discussed, but the patient declined. Will provide paperwork for a handicap placard. 2. continuous churn buttermaker (current) use of anticoagulants Z79.01 The patient reports taking Eliquis once daily instead of the prescribed twice daily regimen due to bleeding concerns. Patient's self-adjusted dosing was noted.
--- OUTSIDE RECORDS SUMMARY | 2024-12-18 17:58 | XMS_ITS | Data Portability ---
Author Organization [facility] [address] Address [address] [place] [address] Assessment No assessment recorded. Plan of Treatment Reminders Order Date Submit Date Provider Last Modified By Organization Details Last Modified Time Details Appointments None recorded. Lab None recorded. Referral None recorded. Procedures None recorded. Surgeries None recorded. Imaging None recorded. Medication Orders amlodipine 5 mg tablet 2022 023 [facility], [address] [place], [address], 3 15:35:41 amlodipine 5 mg tablet 2022 023 [facility], [address] [place], [address], 3 16:02:11 Patient TargetsNo targets recorded. Patient Instructions Encounter Date Encounter Id Patient Instructions Last Modified By Organization Details Last Modified Time 03/06/2022 [id number] high blood pressure: care instructions [email or web address] Not available 03/06/2022 16:02:08 07/03/2022 [id number] - As we discussed, you denied having [...] Address Organization Details Recorded Time Essential hypertension 38014545 Active 2022 TEMI [facility] [facility] [...] Updated DateTime 3 177.8 cm 50.2 kg/m2 922178. 33 g 98.1 [degF] 20 /min 88 [...] Updated DateTime 3 177.8 cm 45.9 kg/m2 484861. 56 g 0 18 /min 97.1 [degF] [...] ICD10 Code Diagnosis IMO Codes Diagnosis Note [id number] [facility] [address] [address] 12/31/2021 13:10:06 12/31/2021 15:50:50 [id number] Dennis Andresfouzia _[facility] [address] [address] 03/06/2022 14:08:02 03/06/2022 16:06:23 Essential hypertension 34600619 I10 BP well controlled on amlodipine per pt reportI will RF amlodipine Advised to establish care with PCPHe will need full lab panel to further assess his BP/health status Discussed concerning red flags with patient and reasons to follow up in the Emergency Department urgently. Patient expressed understand ing of and agreement with the plan as outlined above. [id number] Pete [place] [address] [address] 07/03/2022 14:41:41 07/03/2022 15:37:22 Essential hypertension 57285970 I10 Health Concerns Section Related Observation LastModified by Organization Detai ls LastModified Time None Recorded Concern Status LastModified by Organization Details LastModified Time None Recorded Advance Directives Directive None Recorded Payers Insurance Date Sequence Insurance Name Policy Number Policy Padgett Covered Member ID Padgett Member ID Guarantor Name 03/06/2022 1 [facility]MEDICAID HMO) [id number] Lion Haney [id number] Lion Haney 07/03/2022 1 [facility] (MEDICAID HMO) [place] Lion Haney [id number] Lion Haney 07/03/2022 2 [place] [facility] Lion Haney [id number] Lion Haney 03/06/2022 2 [facility] (O) [id number] Lion Haney [id number] Lion Haney Notes Date Note Type Note Provider Name and Address Organization Details Recorded Time 03/06/19 23 text/htm l Hypertension UCReported by Roovhll21 yo malekarely out of his BP medsBP usually well controlled with amlodipine 5 mgno adverse SEno Hano LH/dizzinessno CPno NOVAK/SOBno edema no PCP at this time - looking for new PCP ROS as noted in the HPI Dennis Salomon DO [address] [place], [address], [place] - [facility] 03/06/2022 16:02:36 [...] Mc NP [address] [place], [address], [place] - [facility] 07/03/2022 15:36:08
== END 2024-12-18 14:51 | disposition home or self-care (01) ==
LOC: HO.HMCH 14:19
PROVIDERS: PCP Internal Medicine; Visit Provider Internal Medicine
DX: Z00.00 Encounter for general adult medical examination without abnormal findings (principal); E66.01 Morbid (severe) obesity due to excess calories; Z68.42 Body mass index [BMI] 45.0-49.9, adult; I48.91 Unspecified atrial fibrillation

== ENCOUNTER → 2024-12-18 14:19 | Outpatient (BNVA) | payer OTHER, SELFPAY | PROVIDERS: PCP Internal Medicine; Visit Provider Internal Medicine | DX: Z00.00 Encounter for general adult medical examination without abnormal findings (principal); N52.9 Male erectile dysfunction, unspecified; E66.01 Morbid (severe) obesity due to excess calories; I48.91 Unspecified atrial fibrillation; Z68.41 Body mass index [BMI] 40.0-44.9, adult; Z79.01 Long term (current) use of anticoagulants; Z79.899 Other long term (current) drug therapy | CPT/HCPCS: 96127; 99396 ==